=== PATIENT | female | born 1945 | race Caucasian/White ===

== ENCOUNTER → 2017-01-25 | Outpatient (CLI) | payer MEDICARE ==
--- NOTE | 2017-01-31 17:35 | MY ---
EXAMINATION: Bilateral digital mammography utilizing CAD. HISTORY: Screening exam. Comparison is made to previous studies dated 12/31/2015, 02/13/2013, 013 . FINDINGS: Bilateral scattered fibroglandular densities. Again noted are several groupings of calc ifications within the right breast with adjacent postsurgical clips. No suspicious calcifications, masses or architectural distortions. No pathologic appearing lymph nodes, no abnormal skin thicken ing or nipple inversion. CAD highlighted regions appear normal at this time. IMPRESSION: BI-RADS category II - Benign finding. Continued screening according to ACR-ACS guidelin es suggested. THE FALSE-NEGATIVE RATE OF MAMMOGRAM IS APPROXIMATELY 10%. MANAGEMENT OF A PALPABLE ABNORMALITY MUST BE BASED UPON CLINICAL GROUNDS. SENSITIVITY FOR DETECTION OF ABNORMALITIES IN DENSE BREASTS IS LOW. NOTE: A letter will be sent to the patient regarding findings. [facility] -- ORA Uribe [phone] - FAX [phone]
== END ==
LOC: MW.MAM 11:29
PROVIDERS: ATTEND Surgery
DX: Z12.31 Encounter for screening mammogram for malignant neoplasm of breast (principal)
CPT/HCPCS: G0202; G0202-26

== ENCOUNTER → 2017-02-01 | Outpatient (CLI) | payer MEDICARE | LOC: MW.CHGS 08:00 | PROVIDERS: ATTEND Surgery | DX: N60.92 Unspecified benign mammary dysplasia of left breast (principal); D24.2 Benign neoplasm of left breast; R10.9 Unspecified abdominal pain; E11.65 Type 2 diabetes mellitus with hyperglycemia | CPT/HCPCS: 99214 ==

== ENCOUNTER → 2017-02-20 | Outpatient (CLI) | payer MEDICARE ==
--- NOTE | 2017-02-20 15:40 | NM ---
EXAMINATION: NM gastric emptying study HISTORY: Epigastric pain COMPARISON: None TECHNIQUE: Anterior posterior imaging was obtained following the administration of 1 mCi of techneti um labeled sulfur colloid within a standard meal. The patient was unable to lay on the table longer than 45 minutes. FINDINGS: The T1 half was approximately 37 minutes. The patient demonstrated approximately 30% empty ing at 40 minutes. Which is within normal limits. IMPRESSION: No evidence of delayed gastric emptying, however the patient was only imaged for a short amount of time.
== END ==
LOC: MW.NM 09:48
PROVIDERS: ATTEND Nurse Practitioner Family
DX: R13.10 Dysphagia, unspecified (principal); R10.13 Epigastric pain
CPT/HCPCS: 78264; A9541

== ENCOUNTER → 2017-03-09 | Outpatient (CLI) | payer MEDICARE | LOC: MW.CHFP 08:00 | PROVIDERS: ATTEND Student in an Organized Health Care Education/Training Program | DX: NODX10 (principal) ==

== ENCOUNTER → 2017-03-24 | Outpatient (CLI) | payer MEDICARE | LOC: MW.CHFP 08:00 | PROVIDERS: ATTEND Student in an Organized Health Care Education/Training Program | DX: H10.10 Acute atopic conjunctivitis, unspecified eye (principal) | CPT/HCPCS: G0463 ==

== ENCOUNTER → 2017-04-05 | Outpatient (CLI) | payer MEDICARE | LOC: MW.CHFP 11:29 | PROVIDERS: ATTEND Student in an Organized Health Care Education/Training Program | DX: E87.6 Hypokalemia (principal); I10 Essential (primary) hypertension; E03.9 Hypothyroidism, unspecified; E11.69 Type 2 diabetes mellitus with other specified complication; E78.5 Hyperlipidemia, unspecified; E11.65 Type 2 diabetes mellitus with hyperglycemia | CPT/HCPCS: 36415; 80053; 80061; 82044; 83036; 84443; 99214 ==

== ENCOUNTER 2017-05-20 02:07 | Emergency (ER) | payer MEDICARE ==
--- NOTE | 2017-05-20 02:57 | EDM.PDOC ---
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 Past medical history: As per history of present illness and as reviewed below otherwise noncontributory. Surgical history: As per history of present illness and as reviewed below otherwise noncontributory. Social history: No reported history of drug or alcohol abuse. Family history: As per history of present illness and as reviewed below otherwise noncontributory. Physical exam: HEENT: Atraumatic, normocephalic, pupils reactive, negative for conjunctival pallor or scleral icterus, mucous membranes moist, throat clear, neck supple, nontender, trachea midline. Lungs: Clear to auscultation, breath sounds equal bilaterally, chest nontender. Heart: S1S2, regular, negative for clicks, rubs, or JVD. Abdomen: Soft, nondistended, nontender. Negative for masses or hepatosplenomegaly. Equivocal costovertebral tenderness. Pelvis: Stable nontender. Genitourinary: Deferred. Rectal: Deferred. Extremities: Atraumatic, negative for cords or calf pain. Neurovascular unremarkable. Neuro: Awake, alert, oriented. Cranial nerves II through XII unremarkable. Cerebellum unremarkable. Motor and sensory unremarkable throughout. Exam nonfocal. Diagnostics: CBC CMP UA urine culture CT abdomen and pelvis Therapeutics: To be determined Impression: #1 history of dysuria/hematuria #2 rule out UTI #3 history diabetes #4 history of diaphragmatic paralysis Definitive disposition and diagnosis as appropriate pending reevaluation and review of above. - Related Data Allergies Allergy/AdvReac Type Severity Reaction Status Date / Time hydrocodone Allergy Vomiting Verified 12/12/16 14:05 oxycodone [Oxycodone] Allergy Vomiting Verified 12/12/16 14:05 prochlorperazine Allergy Vomiting Verified 12/12/16 14:05 Tape Allergy Mild Itching Uncoded 01/07/15 02:39 Home Meds: Home Meds Dicyclomine [Bentyl] 10 mg PO TID 06/09/14 [History] Levothyroxine [Levothroid] 137 mcg PO DAILY 06/09/14 [History] Losartan [Cozaar] 50 mg PO DAILY 06/09/14 [History] Omeprazole 20 mg PO DAILY 06/09/14 [History] atorvaSTATin [Lipitor] 1 tab PO BEDTIME 06/09/14 [History] Acetaminophen [Tylenol Arthritis Pain] 650 mg PO Q6H PRN 01/04/15 [History] Docusate Sodium [Colace] 2 cap PO DAILY 03/09/16 [History] Ferrous Sulfate [Iron] 1 cap PO DAILY 03/09/16 [History] Insulin Aspart [NovoLOG] 10 - 20 units SUBCUT TIDMEALS 03/09/16 [History] Metoprolol Succinate [Toprol XL 100mg] 1 tab PO DAILY 03/09/16 [History] Nortriptyline HCl [Pamelor] 2 cap PO BEDTIME 03/09/16 [History] Azithromycin 500 mg PO DAILY #3 tablet 12/12/16 [Rx] Insulin Degludec/Liraglutide [Xultophy 100 Unit-3.6MG/ml Pen] 86 units SQ BEDTIME 12/12/16 [History] Tobramycin/Dexamethasone [Tobradex Eye Ointment] 3.5 gm OP 5XDAY #1 tub [Rx] Past Medical History HEENT History: Reports: Allergic Rhinitis, Impaired Vision, Other (See Below) Other HEENT History: wears glasses, has upper and lower dentures Cardiovascular History: Reports: High Cholesterol, Hypertension Respiratory History: Reports: Sleep Apnea, Other (See Below) Other Respiratory History: diaphram half paralized on home 02 and cpap Gastrointestinal History: Reports: GERD, Hiatal Hernia, Irritable Bowel Syndrome Genitourinary History: Reports: None 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 Musculoskeletal History: Reports: Arthritis, Fracture Other Musculoskeletal History: has arthritis in both knees, hx of fx both wrists Neurological History: Reports: Headaches, Chronic Other Neuro History: headaches from sinuses Psychiatric History: Reports: None Endocrine/Metabolic History: Reports: Diabetes, Type II, Hypothyroidism, Obesity /BMI 30+ Other Endocrine/Metabolic History: states 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 Hematologic History: Reports: Blood Transfusion(s) Immunologic History: Reports: None Oncologic (Cancer) History: Reports: None Dermatologic History: Reports: Other (See Below) Other Dermatologic History: has patches of dry skin - Infectious Disease History Infectious Disease History: Reports: None - Past Surgical History Head Surgeries/Procedures: Reports: None HEENT Surgical History: Reports: Naso-Sinus Surgery, Tonsillectomy Female Surgical History: Reports: Hysterectomy Musculoskeletal Surgical History: Reports: Arthroscopic Knee, Carpal Tunnel, Other (See Below) Social & Family History - Family History Family Medical History: Noncontributory - Tobacco Use Smoking Status *Q: Former Smoker Years of Tobacco use: 20 Used Tobacco, but Quit: Yes Month Tobacco Last Used: 20 yrs ago Second Hand Smoke Exposure: No - Caffeine Use Caffeine Use: Reports: None - Alcohol Use Days Per Week of Alcohol Use: 0 Number of Drinks Per Day: 0 Total Drinks Per Week: 0 - Recreational Drug Use Recreational Drug Use: No Drug Use in Last 12 Months: No ED ROS GENERAL - Review of Systems Review Of Systems: ROS reveals no pertinent complaints other than HPI. ED EXAM, GENERAL - Physical Exam Exam: See Below (See dictation) Course - Vital Signs Last Recorded V/S: Last Vital Signs Temp 36.6 C 05/20/17 02:12 Pulse 75 05/20/17 02:12 Resp 22 H 05/20/17 02:12 BP 142/86 H 05/20/17 02:12 Pulse Ox 93 L 05/20/17 02:12 - Orders/Labs/Meds Orders: Active Orders 24 hr Category Date Time Status Abdomen Pelvis wo Cont [CT] Stat Exams 05/20/17 02:24 Taken CULTURE URINE [RM] Stat Lab 05/20/17 02:20 Received Sodium Chloride 0.9% [Normal Saline] 500 ml Med 05/20/17 03:45 Active IV .BOLUS Medication Orders Sodium Chloride (Normal Saline) 500 mls @ 999 mls/hr IV .BOLUS VI Last Admin: 05/20/17 03:47 Dose: 999 mls/hr Labs: Laboratory Tests 05/20/17 05/20/17 05/20/17 Range/Units 02:20 02:37 02:37 WBC 10.73 (4.0-11.0) K/uL RBC 5.23 (4.30-5.90) M/uL Hgb 15.7 (12.0-16.0) g/dL Hct 46.5 H (36.0-46.0) % MCV 88.9 (80.0-98.0) fL MCH 30.0 (27.0-32.0) pg MCHC 33.8 (31.0-37.0) g/dL RDW Std Deviation 43.3 (28.0-62.0) fl RDW Coeff of Rajeev 14 (11.0-15.0) % Plt Count 211 (150-400) K/uL MPV 10.00 (7.40-12.00) fL Neut % (Auto) 73.5 (48.0-80.0) % Lymph % (Auto) 17.2 (16.0-40.0) % [place] % (Auto) 7.4 (0.0-15.0) % Eos % (Auto) 1.6 (0.0-7.0) % Baso % (Auto) 0.3 (0.0-1.5) % Neut # (Auto) 7.9 H (1.4-5.7) K/uL Lymph # (Auto) 1.9 (0.6-2.4) K/uL [place] # (Auto) 0.8 (0.0-0.8) K/uL Eos # (Auto) 0.2 (0.0-0.7) K/uL Baso # (Auto) 0.0 (0.0-0.1) K/uL Nucleated RBC % 0.0 /100WBC Nucleated RBCs # 0 K/uL Sodium 139 (136-146) mmol/L Potassium 3.8 (3.5-5.1) mmol/L Chloride 104 (98-110) mmol/L Carbon Dioxide 24 (21-31) mmol/L BUN 13 (6.0-23.0) mg/dL Creatinine 1.1 (0.6-1.5) mg/dL Est Cr Clr Drug Dosing 38.18 mL/min Estimated GFR (MDRD) 49.2 ml/min Glucose 267 H (60-110) mg/dL Calcium 9.6 (8.8-10.8) mg/dL Total Bilirubin 0.7 (0.1-1.5) mg/dL AST 19 (5-40) IU/L ALT 19 (8-54) IU/L Alkaline Phosphatase 127 (40-150) Total Protein 7.2 (6.0-8.0) g/dL Albumin 3.8 (3.4-4.8) g/dL Globulin 3.4 (2.0-3.5) g/dL Albumin/Globulin Ratio 1.1 L (1.3-2.8) Urine Color YELLOW Urine Appearance SLT CLOUDY Urine pH 5.5 (5.0-8.0) Ur Specific [place] 1.025 (1.001-1.035) Urine Protein TRACE (NEGATIVE) mg/dL Urine Glucose (UA) 100 H (NEGATIVE) mg/dL Urine Ketones NEGATIVE (NEGATIVE) mg/dL Urine Occult Blood LARGE H (NEGATIVE) Urine Nitrite NEGATIVE (NEGATIVE) Urine Bilirubin NEGATIVE (NEGATIVE) Urine Urobilinogen 1.0 (<2.0) EU/dL Ur Leukocyte Esterase TRACE (NEGATIVE) Urine RBC 40-50 (0-2/HPF) Urine WBC 1-5 (0-5/HPF) Ur Epithelial Cells FEW (NONE-FEW) Ur Renal Epithelial Cell OCCASIONAL Urine Bacteria FEW (NEGATIVE) Meds: Medications Generic Name Dose Route Start Last Admin Trade Name Freq PRN Reason Stop Dose Admin Sodium Chloride 500 mls @ 999 mls/hr 05/20/17 03:45 05/20/17 03:47 Normal Saline IV 999 mls/hr .BOLUS VI Administration Discontinued Medications Generic Name Dose Route Start Last Admin Trade Name Freq PRN Reason Stop Dose Admin Hydromorphone HCl 1 mg 05/20/17 03:40 05/20/17 03:53 Dilaudid IVPUSH 05/20/17 03:41 1 mg ONETIME ONE Administration Ketorolac Tromethamine 30 mg 05/20/17 03:40 05/20/17 03:52 Toradol IVPUSH 05/20/17 03:41 30 mg ONETIME ONE Administration Ondansetron HCl 4 mg 05/20/17 03:40 05/20/17 03:52 Zofran IVPUSH 05/20/17 03:41 4 mg ONETIME ONE Administration Tamsulosin HCl 0.4 mg 05/20/17 03:40 05/20/17 03:50 Flomax PO 05/20/17 03:41 0.4 mg ONETIME ONE Administration Departure - Departure Time of Disposition: 04:00 Disposition: Home, Self-Care 01 Condition: Good Clinical Impression: Kidney stone - Discharge Information Forms: ED Department Discharge Additional Instructions: The following information is given to patients seen in the emergency department who are being discharged to home. This information is to outline your options for follow-up care. We provide all patients seen in our emergency department with a follow-up referral. The need for follow-up, as well as the timing and circumstances, are variable depending upon the specifics of your emergency department visit. If you don't have a primary care physician on staff, we will provide you with a referral. We always advise you to contact your personal physician following an emergency department visit to inform them of the circumstance of the visit and for follow-up with them and/or the need for any referrals to a consulting specialist. The emergency department will also refer you to a specialist when appropriate. This referral assures that you have the opportunity for followup care with a specialist. All of these measure are taken in an effort to provide you with optimal care, which includes your followup. Under all circumstances we always encourage you to contact your private physician who remains a resource for coordinating your care. When calling for followup care, please make the office aware that this follow-up is from your recent emergency room visit. If for any reason you are refused follow-up, please contact the [facility] emergency department at and asked to speak to the emergency department charge nurse. [facility] - Urology [address] [place] [id number] Hydrocodone Flomax Zofran as prescribed push fluids follow-up private medical doctor/urology above return as needed as discussed - My Orders Last 24 Hours: My Active Orders 05/20/17 02:20 CULTURE URINE [RM] Stat 05/20/17 02:24 Abdomen Pelvis wo Cont [CT] Stat 05/20/17 03:45 Sodium Chloride 0.9% [Normal Saline] 500 ml IV .BOLUS - Assessment/Plan Last 24 Hours: My Active Orders 05/20/17 02:20 CULTURE URINE [RM] Stat 05/20/17 02:24 Abdomen Pelvis wo Cont [CT] Stat 05/20/17 03:45 Sodium Chloride 0.9% [Normal Saline] 500 ml IV .BOLUS
[2017-05-20] MEDS ORDERED: Tamsulosin 0.4 MG Cap.ER PO ONE (03:40)
[2017-05-20] MEDS ORDERED: Ondansetron 4 MG/2 ML SDV IVPUSH ONE (03:40)
[2017-05-20] MEDS ORDERED: HYDROmorphone 1 MG/ML Syringe IVPUSH ONE (03:40)
[2017-05-20] MEDS ORDERED: Ketorolac 30 MG/ML SDV IVPUSH ONE (03:40)
[2017-05-20] MEDS ORDERED: Sodium Chloride 0.9% 500 ML IV SCH (03:45)
[2017-05-20 05:16] VITALS: BP 131/83
--- NOTE | 2017-05-22 14:00 | CT ---
EXAM DATE: 05/20/17 PATIENT'S AGE: 71 Patient: KEVIN GARCIA Facility: [place], [place] Site . Site : 1945 Study: CT Abdomen/Pelvis [id number]/1/2017 3:08:30 AM Ordering Physician: Doctor Sanz Final Report: INDICATION: Hematuria, left flank pain TECHNIQUE: CT abdomen and pelvis without contrast. COMPARISON: None FINDINGS: Lower chest: Coronary artery calcifications. Small hiatal hernia. Liver: Nodular hepatic contour. Enlarged caudate lobe. No ascites. Spleen: Unremarkable. Pancreas: Unremarkable. Gallbladder and bile ducts: Status post cholecystectomy. Adrenal glands: Unremarkable. Kidneys: There is mild left renal edema and perinephric stranding with mild left hydronephrosis and proximal hydroureter. An obstructing 0.4 cm stone is seen within the left mid ureter. There are at least four stones within the left kidney, the largest measuring 3 mm in diameter. There are least three nonobstructive stones in the right kidney, the largest measuring 4 mm in diameter. GI tract: Colonic diverticulosis. Moderate to large amount of stool within the colon. Vascular structures: Atherosclerotic disease. Lymph nodes: 1.2 cm periportal lymph node 1.1 cm aortocaval lymph node. Miscellaneous: There is atrophy of the right rectus muscle. Pelvic Organs: Status post hysterectomy. Bones: Unremarkable for age. IMPRESSION: Obstructing 0.4 cm stone in the left mid ureter with mild left hydronephrosis. Bilateral nephrolithiasis. Hepatic cirrhosis. Periportal and aortocaval adenopathy is likely reactive. Small hiatal hernia. Colonic diverticulosis. Constipation. Coronary artery disease. Status post hysterectomy and cholecystectomy. Please note that all CT scans at this facility use dose modulation, iterative reconstruction, and/or weight-based dosing when appropriate to reduce radiation dose to as low as reasonably achievable. Dictated by Pricilla Meyers MD @ May 20 2017 3:11AM (Electronic Signature) Report Signed by Proxy. MTDD
== END 2017-05-20 05:24 | disposition home or self-care (01) ==
LOC: MW.ED 02:07
DX: N13.2 Hydronephrosis with renal and ureteral calculous obstruction (principal); E11.9 Type 2 diabetes mellitus without complications; E78.00 Pure hypercholesterolemia, unspecified; I10 Essential (primary) hypertension; K21.9 Gastro-esophageal reflux disease without esophagitis; E03.9 Hypothyroidism, unspecified; E66.9 Obesity, unspecified; Z90.710 Acquired absence of both cervix and uterus; Z88.5 Allergy status to narcotic agent; Z88.8 Allergy status to other drugs, medicaments and biological substances; Z79.899 Other long term (current) drug therapy; Z79.4 Long term (current) use of insulin; Z98.890 Other specified postprocedural states; Z87.891 Personal history of nicotine dependence; Z68.36 Body mass index [BMI] 36.0-36.9, adult
CPT/HCPCS: 36415; 74176; 80053; 81001; 85025; 87086; 96361; 96374; 96375; 99284; A9270; J1170; J1885; J2405; J7040; 99283

== ENCOUNTER 2018-05-24 07:24 | Emergency (ER) | payer MEDICARE ==
--- NOTE | 2018-05-24 07:27 | EDM.PDOC ---
ED HPI GENERAL MEDICAL PROBLEM - General Stated Complaint: FELL- HURT BACK AND BACKSIDE Time Seen by Provider: 05/24/18 07:27 Source of Information: Reports: Patient - History of Present Illness INITIAL COMMENTS - FREE TEXT/NARRATIVE: HISTORY AND PHYSICAL: History of present illness: [Patient presents post fall 24 hours Patient fell in her home she was ambulating with her walker fell straight onto her bottom she complains of low back pain this morning she rates 4 out of 10 worsened by movement better at rest and lying down no apparent distress easily examine no fever nausea vomiting chills sweats no chest pain shortness breath headache dizziness palpitation about a urine symptoms no head injury or loss of consciousness ] Review of systems: As per history of present illness and below otherwise all systems reviewed and negative. Past medical history: As per history of present illness and as reviewed below otherwise noncontributory. Surgical history: As per history of present illness and as reviewed below otherwise noncontributory. Social history: No reported history of drug or alcohol abuse. Family history: As per history of present illness and as reviewed below otherwise noncontributory. Physical exam: HEENT: Atraumatic, normocephalic, pupils reactive, negative for conjunctival pallor or scleral icterus, mucous membranes moist, throat clear, neck supple, nontender, trachea midline. Home oxygen nasal cannula noted Lungs: Clear to auscultation, breath sounds equal bilaterally, chest nontender. Heart: S1S2, regular, negative for clicks, rubs, or JVD. Abdomen: Soft, nondistended, nontender. Negative for masses or hepatosplenomegaly. Negative for costovertebral tenderness. Pelvis: Stable nontender. Genitourinary: Deferred. Rectal: Deferred. Extremities: Atraumatic, negative for cords or calf pain. Neurovascular unremarkable. Neuro: Awake, alert, oriented. Cranial nerves II through XII unremarkable. Cerebellum unremarkable. Motor and sensory unremarkable throughout. Exam nonfocal. Diagnostics: [Pelvis 1 view Lumbar spine 3 views Therapeutics: [Tramadol 50 mg by mouth 3 times a day when necessary #30 no refill ] Impression: [Low back pain ] T12 compression fracture indeterminate age Definitive disposition and diagnosis as appropriate pending reevaluation and review of above. Left Lower Back Pain Score (Numeric/FACES): 4 - Related Data Allergies Allergy/AdvReac Type Severity Reaction Status Date / Time hydrocodone AdvReac Vomiting Verified 05/24/18 08:16 oxycodone [Oxycodone] AdvReac Vomiting Verified 05/24/18 08:16 prochlorperazine AdvReac Vomiting Verified 05/24/18 08:16 Tape Allergy Mild Itching Uncoded 05/24/18 08:16 Home Meds: Home Meds Dicyclomine [Bentyl] 10 mg PO TID 06/09/14 [History] Levothyroxine [Levothroid] 137 mcg PO DAILY 06/09/14 [History] Losartan [Cozaar] 50 mg PO DAILY 06/09/14 [History] Omeprazole 20 mg PO DAILY 06/09/14 [History] atorvaSTATin [Lipitor] 1 tab PO BEDTIME 06/09/14 [History] Acetaminophen [Tylenol Arthritis Pain] 650 mg PO Q6H PRN 01/04/15 [History] Docusate Sodium [Colace] 2 cap PO DAILY 03/09/16 [History] Ferrous Sulfate [Iron] 1 cap PO DAILY 03/09/16 [History] Insulin Aspart [NovoLOG] 10 - 20 units SUBCUT TIDMEALS 03/09/16 [History] Metoprolol Succinate [Toprol XL 100mg] 1 tab PO DAILY 03/09/16 [History] Nortriptyline HCl [Pamelor] 2 cap PO BEDTIME 03/09/16 [History] Azithromycin 500 mg PO DAILY #3 tablet 12/12/16 [Rx] Insulin Degludec/Liraglutide [Xultophy 100 Unit-3.6MG/ml Pen] 86 units SQ BEDTIME 12/12/16 [History] Tobramycin/Dexamethasone [Tobradex Eye Ointment] 3.5 gm OP 5XDAY #1 tub [Rx] Past Medical History HEENT History: Reports: Allergic Rhinitis, Impaired Vision, Other (See Below) Other HEENT History: wears glasses, has upper and lower dentures Cardiovascular History: Reports: High Cholesterol, Hypertension Respiratory History: Reports: Sleep Apnea, Other (See Below) Other Respiratory History: diaphram half paralized on home 02 and cpap Gastrointestinal History: Reports: GERD, Hiatal Hernia, Irritable Bowel Syndrome Genitourinary History: Reports: None 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 Musculoskeletal History: Reports: Arthritis, Fracture Other Musculoskeletal History: has arthritis in both knees, hx of fx both wrists Neurological History: Reports: Headaches, Chronic Other Neuro History: headaches from sinuses Psychiatric History: Reports: None Endocrine/Metabolic History: Reports: Diabetes, Type II, Hypothyroidism, Obesity /BMI 30+ Other Endocrine/Metabolic History: states 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 Hematologic History: Reports: Blood Transfusion(s) Immunologic History: Reports: None Oncologic (Cancer) History: Reports: None Dermatologic History: Reports: Other (See Below) Other Dermatologic History: has patches of dry skin - Infectious Disease History Infectious Disease History: Reports: None - Past Surgical History Head Surgeries/Procedures: Reports: None HEENT Surgical History: Reports: Naso-Sinus Surgery, Tonsillectomy Female Surgical History: Reports: Hysterectomy Musculoskeletal Surgical History: Reports: Arthroscopic Knee, Carpal Tunnel, Other (See Below) Social & Family History - Family History Family Medical History: Noncontributory - Caffeine Use Caffeine Use: Reports: None ED ROS GENERAL - Review of Systems Review Of Systems: See Below ED EXAM, GENERAL - Physical Exam Exam: See Below Course - Vital Signs Last Recorded V/S: Last Vital Signs Temp 97.8 F 05/24/18 07:43 Pulse 95 05/24/18 07:43 Resp 20 05/24/18 07:43 BP 154/88 H 05/24/18 07:43 Pulse Ox 95 05/24/18 07:43 - Orders/Labs/Meds Orders: Active Orders 24 hr Category Date Time Status Lumbar Spine 2 or 3V [CR] Stat Exams 05/24/18 07:26 Taken Pelvis 1V or 2V [CR] Stat Exams 05/24/18 07:26 Taken Departure - Departure Time of Disposition: 08:50 Disposition: Home, Self-Care 01 Condition: Good Clinical Impression: Compression fracture of T12 vertebra - Discharge Information Referrals: Sheridan Jean-Baptiste MD [Primary Care Provider] - Additional Instructions: The following information is given to patients seen in the emergency department who are being discharged to home. This information is to outline your options for follow-up care. We provide all patients seen in our emergency department with a follow-up referral. The need for follow-up, as well as the timing and circumstances, are variable depending upon the specifics of your emergency department visit. If you don't have a primary care physician on staff, we will provide you with a referral. We always advise you to contact your personal physician following an emergency department visit to inform them of the circumstance of the visit and for follow-up with them and/or the need for any referrals to a consulting specialist. The emergency department will also refer you to a specialist when appropriate. This referral assures that you have the opportunity for follow-up care with a specialist. All of these measure are taken in an effort to provide you with optimal care, which includes your follow-up. Under all circumstances we always encourage you to contact your private physician who remains a resource for coordinating your care. When calling for follow-up care, please make the office aware that this follow-up is from your recent emergency room visit. If for any reason you are refused follow-up, please contact the [facility] emergency department at and asked to speak to the emergency department charge nurse. - My Orders Last 24 Hours: My Active Orders 05/24/18 07:26 Lumbar Spine 2 or 3V [CR] Stat Pelvis 1V or 2V [CR] Stat - Assessment/Plan Last 24 Hours: My Active Orders 05/24/18 07:26 Lumbar Spine 2 or 3V [CR] Stat Pelvis 1V or 2V [CR] Stat
[2018-05-24] MEDS ORDERED: Sodium Chloride 0.9% 500 ML IV SCH (09:30)
[2018-05-24] MEDS ORDERED: traMADol 50 MG Tab PO ONE (09:56)
[2018-05-24 11:50] VITALS: BP 106/78
--- NOTE | 2018-05-24 14:08 | CR ---
EXAM DATE: 05/24/18 PATIENT'S AGE: 72 Patient: KEVIN GARCIA Facility: [place], [place] Site . Site : 1945 Study: XRay Pelvis [id number]/5/2018 8:32:06 AM Ordering Physician: Doctor Sanz Final Report: Indication: Pain Technique: Pelvis 1 view Comparison: None Findings: Bones: Alignment is normal. No fractures or bone lesions. Joint spaces: Mild osteoarthritis is present in both hip joints. Soft tissues: Unremarkable. Impression: Mild bilateral hip joint osteoarthritis. No other finding to explain pain. Dictated by Abhinav Guerrero MD @ May 24 2018 8:34AM (Electronic Signature) Report Signed by Proxy. ARTURO
--- NOTE | 2018-05-24 14:09 | CR ---
EXAM DATE: 05/24/18 PATIENT'S AGE: 72 Patient: KEVIN GARCIA Facility: [place], [place] Site . Site : 1945 Study: XRay Spine Lumbar [id number]/5/[id number] 8:32:29 AM Ordering Physician: Doctor Sanz Final Report: INDICATION: Back pain TECHNIQUE: Lumbar spine 3 view COMPARISON: None FINDINGS: Bones: Alignment is normal. There is a moderate compression fracture of the T12 vertebral body. No other fractures or bone lesions. Joints: Moderate diffuse disc space narrowing. Moderate facet joint spondylosis is in the lower lumbar spine. Soft tissues: Unremarkable. IMPRESSION: 1. Moderate compression fracture of the T12 vertebral body is of indeterminate age. An acute fracture is possible. 2. Moderate multilevel degenerative disc and facet joint spondylosis. Dictated by Abhinav Guerrero MD @ May 24 2018 8:36AM (Electronic Signature) Report Signed by Proxy. ARTURO
== END 2018-05-24 11:40 | disposition home or self-care (01) ==
LOC: MW.ED 07:24
DX: S22.089A Unspecified fracture of T11-T12 vertebra, initial encounter for closed fracture (principal); E78.00 Pure hypercholesterolemia, unspecified; I10 Essential (primary) hypertension; K21.9 Gastro-esophageal reflux disease without esophagitis; E11.9 Type 2 diabetes mellitus without complications; E03.9 Hypothyroidism, unspecified; Z88.5 Allergy status to narcotic agent; Z88.8 Allergy status to other drugs, medicaments and biological substances; Z79.899 Other long term (current) drug therapy; Z79.4 Long term (current) use of insulin; W19.XXXA Unspecified fall, initial encounter
CPT/HCPCS: 36415; 72100; 72170; 80048; 81001; 85025; 87086; 96360; 99284; A9270; J7040; 87088; 87186

== ENCOUNTER 2019-05-29 00:31 | Emergency (ER) | payer MEDICARE ==
--- NOTE | 2019-05-29 00:59 | EDM.PDOC ---
<Tyrone Rodriguez - Last Filed: 05/29/19 02:00> ED HPI GENERAL MEDICAL PROBLEM - General Chief Complaint: General Stated Complaint: TOOK WRONG INSULIN Time Seen by Provider: 05/29/19 00:39 Source of Information: Reports: Patient History Limitations: Reports: No Limitations - History of Present Illness INITIAL COMMENTS - FREE TEXT/NARRATIVE: HISTORY AND PHYSICAL: History of present illness: 73-year-old female presents to the emergency department accompanied by her son and granddaughter for the evaluation of unintentional overdose of Novolog. At 2300, the patient inadvertently mistaken her Novolog pen for her Tresiba pen and injected her self with a total of 80 units of Novolog She immediately called her son. She did not drink any juice or make any attempts to raise her blood sugar. She denies any loss of consciousness, confusion feeling of lightheadedness, or diaphoresis. The patient is on chronic oxygen therapy at home and wears 2L NC. This is secondary to a past history of a partial diaphragmatic paralyzation. The patient self reports a increase work of breathing above her baseline however she is attributing the stressful event. Upon arrival to the emergency department it was found her blood glucose to be at 159. Review of systems: As per history of present illness and below otherwise all systems reviewed and negative. Past medical history: As per history of present illness and as reviewed below otherwise noncontributory. Surgical history: As per history of present illness and as reviewed below otherwise noncontributory. Social history: No reported history of drug or alcohol abuse. Family history: As per history of present illness and as reviewed below otherwise noncontributory. Physical exam: Constitutional: Well developed, well nourished, and toxic appearing HEENT: Atraumatic, normocephalic, pupils reactive, negative for conjunctival pallor or scleral icterus, mucous membranes moist, throat clear, neck supple, nontender, trachea midline. Lungs: Conversational dyspnea which is baseline according to the patient. Sounds are clear and equal bilaterally diminished to the bases to auscultation, Heart: S1S2, regular, negative for clicks, rubs, or JVD. Abdomen: Soft, nondistended, nontender. Bowel sounds active Genitourinary: Deferred. Rectal: Deferred. Extremities: Atraumatic, negative for cords or calf pain. Neurovascular unremarkable. Neuro: Awake, alert, oriented. Cranial nerves II through XII unremarkable. Cerebellum unremarkable. Motor and sensory unremarkable throughout. Exam nonfocal. Diagnostics: CBC, BMP, Blood glucose checks every thirty minutes or if the patient becomes symptomatic Therapeutics: Apple juice Impression: Unintentional overdose of NovoLog Plan: The patient will be closely monitored in the emergency department. We will be performing blood glucose testing on her every 30 minutes or if the patient becomes symptomatic. We will obtain a CBC as well as a basic metabolic panel. The patient was educated on marking her insulin pens with an easy to identify marker to prevent further recurrence. The patient's blood glucose was checked I half hour after arriving to the emergency department it was recorded to be at 154. The patient was given a cup of apple juice tolerating. The patient reports that her work breathing is returning back to her baseline. With the peak onset of NovoLog being 90 minutes, the patient can be safely discharged home as the incident occurred two and half hours ago. Additionally She will be instructed to check her blood glucose prior to going to bed and to follow-up with her diabetic care educator in the morning Definitive disposition and diagnosis as appropriate pending reevaluation and review of above. - Related Data Allergies Allergy/AdvReac Type Severity Reaction Status Date / Time hydrocodone AdvReac Vomiting Verified 05/29/19 00:44 oxycodone [Oxycodone] AdvReac Vomiting Verified 05/29/19 00:44 prochlorperazine AdvReac Vomiting Verified 05/29/19 00:44 Tape Allergy Mild Itching Uncoded 05/29/19 00:44 Home Meds: Home Meds Dicyclomine [Bentyl] 10 mg PO TID 06/09/14 [History] Levothyroxine [Levothroid] 175 mcg PO DAILY 06/09/14 [History] Losartan [Cozaar] 50 mg PO DAILY 06/09/14 [History] Omeprazole 40 mg PO BID 06/09/14 [History] atorvaSTATin [Lipitor] 1 tab PO BEDTIME 06/09/14 [History] Insulin Aspart [NovoLOG] 10 - 20 units SUBCUT TIDMEALS 03/09/16 [History] Metoprolol Succinate [Toprol XL 100mg] 2 tab PO DAILY 03/09/16 [History] Nortriptyline HCl [Pamelor] 2 cap PO BEDTIME 03/09/16 [History] Calcium Carb & Citrate/Vit D3 [Calcium + D3 ER Tablet] 2 tab PO DAILY 05/29/19 [ History] Celecoxib [CeleBREX] 200 mg PO DAILY 05/29/19 [History] Insulin Degludec [Tresiba] 80 units SQ ASDIRECTED 05/29/19 [History] Magnesium 500 mg PO DAILY 05/29/19 [History] amLODIPine Besylate [Amlodipine Besylate] 1 tab PO DAILY 05/29/19 [History] Past Medical History HEENT History: Reports: Allergic Rhinitis, Impaired Vision, Other (See Below) Other HEENT History: wears glasses, has upper and lower dentures Cardiovascular History: Reports: High Cholesterol, Hypertension Respiratory History: Reports: Sleep Apnea, Other (See Below) Other Respiratory History: diaphragm half paralized on home 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 Gastrointestinal History: Reports: GERD, Hiatal Hernia, Irritable Bowel Syndrome Genitourinary History: Reports: None [employer] History: Reports: None Musculoskeletal History: Reports: Arthritis, Fracture Other Musculoskeletal History: has arthritis in both knees, hx of fx both wrists Neurological History: Reports: Headaches, Chronic Other Neuro History: headaches from sinuses Psychiatric History: Reports: None Endocrine/Metabolic History: Reports: Diabetes, Type II, Hypothyroidism, Obesity /BMI 30+ Other Endocrine/Metabolic History: states 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 Hematologic History: Reports: Blood Transfusion(s) Immunologic History: Reports: None Oncologic (Cancer) History: Reports: None Dermatologic History: Reports: Other (See Below) Other Dermatologic History: has patches of dry skin - Infectious Disease History Infectious Disease History: Reports: None - Past Surgical History Head Surgeries/Procedures: Reports: None HEENT Surgical History: Reports: Naso-Sinus Surgery, Tonsillectomy Female Surgical History: Reports: Hysterectomy Musculoskeletal Surgical History: Reports: Arthroscopic Knee, Carpal Tunnel, Other (See Below) Social & Family History - Family History Family Medical History: Noncontributory - Tobacco Use Smoking Status *Q: Never Smoker - Caffeine Use Caffeine Use: Reports: Soda - Recreational Drug Use Recreational Drug Use: No ED ROS GENERAL - Review of Systems Review Of Systems: ROS reveals no pertinent complaints other than HPI. (See dictation) Course - Vital Signs Last Recorded V/S: Last Vital Signs Temp 36.6 C 05/29/19 00:31 Pulse 74 05/29/19 02:10 Resp 17 05/29/19 02:10 BP 126/63 05/29/19 02:10 Pulse Ox 93 L 05/29/19 02:10 - Orders/Labs/Meds Orders: Active Orders 24 hr Category Date Time Status Oxygen Therapy, ED [RC] ASDIRECTED Care 05/29/19 01:15 Active Pulse Oximetry [RC] ASDIRECTED Care 05/29/19 01:15 Active Sodium Chloride 0.9% [Saline Flush] Med 05/29/19 01:14 Active 10 ml FLUSH ASDIRECTED PRN Sodium Chloride 0.9% [Saline Flush] Med 05/29/19 01:14 Active 2.5 ml FLUSH ASDIRECTED PRN Saline Lock Insert [OM.PC] Stat Oth 05/29/19 01:14 Ordered Medication Orders Sodium Chloride (Saline Flush) 10 ml FLUSH ASDIRECTED PRN PRN Reason: Keep Vein Open Sodium Chloride (Saline Flush) 2.5 ml FLUSH ASDIRECTED PRN PRN Reason: Keep Vein Open Labs: Laboratory Tests 05/29/19 05/29/19 05/29/19 Range/Units 00:40 00:40 01:23 WBC 6.63 (4.0-11.0) K/uL RBC 4.95 (4.30-5.90) M/uL Hgb 12.9 (12.0-16.0) g/dL Hct 39.4 (36.0-46.0) % MCV 79.6 L (80.0-98.0) fL MCH 26.1 L (27.0-32.0) pg MCHC 32.7 (31.0-37.0) g/dL RDW Std Deviation 43.5 (28.0-62.0) fl RDW Coeff of Rajeev 15 (11.0-15.0) % Plt Count 260 (150-400) K/uL MPV 10.50 (7.40-12.00) fL Neut % (Auto) 53.8 (48.0-80.0) % Lymph % (Auto) 33.5 (16.0-40.0) % Rowan % (Auto) 9.8 (0.0-15.0) % Eos % (Auto) 2.6 (0.0-7.0) % Baso % (Auto) 0.3 (0.0-1.5) % Neut # (Auto) 3.6 (1.4-5.7) K/uL Lymph # (Auto) 2.2 (0.6-2.4) K/uL Rowan # (Auto) 0.7 (0.0-0.8) K/uL Eos # (Auto) 0.2 (0.0-0.7) K/uL Baso # (Auto) 0.0 (0.0-0.1) K/uL Sodium 141 (136-145) mmol/L Potassium 4.0 (3.5-5.1) mmol/L Chloride 107 (98-107) mmol/L Carbon Dioxide 22.6 (21.0-32.0) mmol/L BUN 19 H (7.0-18.0) mg/dL Creatinine 1.2 H (0.6-1.0) mg/dL Est Cr Clr Drug Dosing TNP Estimated GFR (MDRD) 44.3 ml/min Glucose 173 H (74-106) mg/dL POC Glucose 154 H (60-110) mg/dL Calcium 8.7 (8.5-10.1) mg/dL Total Bilirubin 0.9 (0.2-1.0) mg/dL AST 27 (15-37) IU/L ALT 22 (14-63) IU/L Alkaline Phosphatase 116 (46-116) U/L Total Protein 7.3 (6.4-8.2) g/dL Albumin 3.5 (3.4-5.0) g/dL Globulin 3.8 (2.6-4.0) g/dL Albumin/Globulin Ratio 0.9 (0.9-1.6) Meds: Medications Generic Name Dose Route Start Last Admin Trade Name Freq PRN Reason Stop Dose Admin Sodium Chloride 10 ml 05/29/19 01:14 Saline Flush FLUSH ASDIRECTED PRN Keep Vein Open Sodium Chloride 2.5 ml 05/29/19 01:14 Saline Flush FLUSH ASDIRECTED PRN Keep Vein Open Departure - Departure Disposition: Home, Self-Care 01 Clinical Impression: Insulin overdose Qualifiers: Encounter type: initial encounter Injury intent: accidental or unintentional Qualified Code(s): T38.3X1A - Poisoning by insulin and oral hypoglycemic [ antidiabetic] drugs, accidental (unintentional), initial encounter - Discharge Information Instructions: Regular Insulin injection Referrals: PCP,None [Primary Care Provider] - Forms: ED Department Discharge Additional Instructions: The following information is given to patients seen in the emergency department who are being discharged to home. This information is to outline your options for follow-up care. We provide all patients seen in our emergency department with a follow-up referral. The need for follow-up, as well as the timing and circumstances, are variable depending upon the specifics of your emergency department visit. If you don't have a primary care physician on staff, we will provide you with a referral. We always advise you to contact your personal physician following an emergency department visit to inform them of the circumstance of the visit and for follow-up with them and/or the need for any referrals to a consulting specialist. The emergency department will also refer you to a specialist when appropriate. This referral assures that you have the opportunity for followup care with a specialist. All of these measure are taken in an effort to provide you with optimal care, which includes your followup. Under all circumstances we always encourage you to contact your private physician who remains a resource for coordinating your care. When calling for followup care, please make the office aware that this follow-up is from your recent emergency room visit. If for any reason you are refused follow-up, please contact the [facility] emergency department at and ask to speak to the emergency department charge nurse. [facility] Primary care- [place] [address] Continue to monitor your blood sugar very closely checking it every 1-2 hours for the next 8 hours. Please connect with your diabetic teaching people as well as your primary care physician to discuss this morning's events and return to ER as needed and as discussed - My Orders Last 24 Hours: My Active Orders 05/29/19 01:14 Sodium Chloride 0.9% [Saline Flush] 10 ml FLUSH ASDIRECTED PRN Sodium Chloride 0.9% [Saline Flush] 2.5 ml FLUSH ASDIRECTED PRN Saline Lock Insert [OM.PC] Stat 05/29/19 01:15 Oxygen Therapy, ED [RC] ASDIRECTED Pulse Oximetry [RC] ASDIRECTED - Assessment/Plan Last 24 Hours: My Active Orders 05/29/19 01:14 Sodium Chloride 0.9% [Saline Flush] 10 ml FLUSH ASDIRECTED PRN Sodium Chloride 0.9% [Saline Flush] 2.5 ml FLUSH ASDIRECTED PRN Saline Lock Insert [OM.PC] Stat 05/29/19 01:15 Oxygen Therapy, ED [RC] ASDIRECTED Pulse Oximetry [RC] ASDIRECTED <Emili Caceres - Last Filed: 05/29/19 02:14> ED HPI GENERAL MEDICAL PROBLEM - History of Present Illness INITIAL COMMENTS - FREE TEXT/NARRATIVE: Dr. Caceres dictating addendum note as I am the supervising physician on this case. Agree with history and physical as above and as we have long past the peak of the NovoLog I feel the patient states to go home and we will advise her to check her blood sugars throughout the rest of the morning. ED ROS GENERAL - Review of Systems Review Of Systems: ROS reveals no pertinent complaints other than HPI. ED EXAM, GENERAL - Physical Exam Exam: See Below (See dictation) Departure - Departure Time of Disposition: 01:58 Condition: Good
[2019-05-29] MEDS ORDERED: Sodium Chloride 0.9% 10 ML Syringe FLUSH PRN (01:14)
[2019-05-29] MEDS ORDERED: Sodium Chloride 0.9% 2.5 ML Syringe FLUSH PRN (01:14)
[2019-05-29 01:32] LABS: CHLORIDE,CL 107 mmol/L (98-107); SODIUM,NA 141 mmol/L (136-145)
[2019-05-29 02:14] VITALS: BP 126/63
== END 2019-05-29 02:10 | disposition home or self-care (01) ==
LOC: MW.ED 00:31
DX: T38.3X1A Poisoning by insulin and oral hypoglycemic [antidiabetic] drugs, accidental (unintentional), initial encounter (principal); E78.00 Pure hypercholesterolemia, unspecified; I10 Essential (primary) hypertension; K21.9 Gastro-esophageal reflux disease without esophagitis; E11.9 Type 2 diabetes mellitus without complications; E03.9 Hypothyroidism, unspecified; Z99.81 Dependence on supplemental oxygen; Z79.4 Long term (current) use of insulin; Z88.5 Allergy status to narcotic agent; Z88.8 Allergy status to other drugs, medicaments and biological substances; Z91.048 Other nonmedicinal substance allergy status; Z79.899 Other long term (current) drug therapy
CPT/HCPCS: 36415; 80053; 82962; 85025; 99284

== ENCOUNTER 2020-02-04 08:06 | Inpatient (IN) | payer MEDICARE ==
[2020-02-04] MEDS ORDERED: Albuterol/Ipratropium 3.0-0.5 MG/3 ML Neb Soln ONE (08:11)
[2020-02-04] MEDS ORDERED: Magnesium Sulfate/Water 2 GM in Premix Bag 1 BAG IV ONE (08:12)
[2020-02-04] MEDS ORDERED: Albuterol/Ipratropium 3.0-0.5 MG/3 ML Neb Soln NEB ONE (08:12)
[2020-02-04] MEDS ORDERED: methylPREDNISolone Sodium Succinate 125 MG/2 ML SDV IVPUSH ONE (08:13)
--- NOTE | 2020-02-04 08:28 | EDM.PDOC ---
ED HPI GENERAL MEDICAL PROBLEM - General Chief Complaint: Respiratory Problem Stated Complaint: BREATHING PROBLEMS Time Seen by Provider: 02/04/20 08:13 Source of Information: Reports: Patient, EMS History Limitations: Reports: No Limitations - History of Present Illness INITIAL COMMENTS - FREE TEXT/NARRATIVE: This 74 year old female is admitted to the ED via EMS with a chief complaint of increasing SOB for the past two weeks. 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 She denies chest pain but does have mild nausea. She is on home oxygen 3 liters /minute. The EMS states that her oxygen sat on 3 liters of oxygen was 79-80. She was placed on 10 liters and her oxygen sat came up to 96%. The patient states that the last time she had these symptoms was when she had pneumonia. She denies any fever or chills. No vomiting. No urinary symptoms. She denies any other symptoms. Onset: Gradual (last two weeks but has gotten worse) Duration: Getting Worse Location: Reports: Chest Severity: Moderate (SOB) Improves with: Reports: Other (oxygen) Worsens with: Reports: Other (exercise) Context: Reports: Other (her SOB is increased with walking) - Related Data Allergies Allergy/AdvReac Type Severity Reaction Status Date / Time adhesive tape Allergy Rash Verified 02/04/20 08:15 hydrocodone AdvReac Vomiting Verified 02/04/20 08:15 oxycodone [Oxycodone] AdvReac Vomiting Verified 02/04/20 08:15 prochlorperazine AdvReac Vomiting Verified 02/04/20 08:15 Tape Allergy Mild Itching Uncoded 05/29/19 00:44 Home Meds: Home Meds Dicyclomine [Bentyl] 10 mg PO TID 06/09/14 [History] Levothyroxine [Levothroid] 175 mcg PO DAILY 06/09/14 [History] Losartan [Cozaar] 50 mg PO DAILY 06/09/14 [History] Omeprazole 40 mg PO BID 06/09/14 [History] atorvaSTATin [Lipitor] 1 tab PO BEDTIME 06/09/14 [History] Insulin Aspart [NovoLOG] 10 - 20 units SUBCUT TIDMEALS 03/09/16 [History] Metoprolol Succinate [Toprol XL 100mg] 2 tab PO DAILY 03/09/16 [History] Nortriptyline HCl [Pamelor] 2 cap PO BEDTIME 03/09/16 [History] Calcium Carb, Citrate/Vit D3 [Calcium + D3 ER Tablet] 2 tab PO DAILY 05/29/19 [ History] Celecoxib [CeleBREX] 200 mg PO DAILY 05/29/19 [History] Insulin Degludec [Tresiba] 80 units SQ ASDIRECTED 05/29/19 [History] Magnesium 500 mg PO DAILY 05/29/19 [History] amLODIPine Besylate [Amlodipine Besylate] 1 tab PO DAILY 05/29/19 [History] Celecoxib 200 mg PO 09/03/19 [History] Dicyclomine [Bentyl] 10 mg PO 09/03/19 [History] Fluticasone Furoate [Arnuity Ellipta] 2 inh NASBOTH 09/03/19 [History] Insulin Degludec [Tresiba] 200 unit SQ 09/03/19 [History] Insuln Asp Prot/Insulin Aspart [NovoLOG Mix 70-30] 22 units SUBCUT 09/03/19 [ History] Latanoprost/Pf [Latanoprost 0.005% Eye Drop] 1 drop EYEBOTH 09/03/19 [History] Levothyroxine 175 mcg PO 09/03/19 [History] Losartan [Cozaar] 50 mg PO 09/03/19 [History] Meloxicam 15 mg PO 09/03/19 [History] Metoprolol Succinate 100 mg PO 09/03/19 [History] Nortriptyline 10 mg PO 09/03/19 [History] Omeprazole 40 mg PO 09/03/19 [History] amLODIPine [Norvasc] 10 mg PO 09/03/19 [History] atorvaSTATin [Lipitor] 20 mg PO 09/03/19 [History] Past Medical History HEENT History: Reports: Allergic Rhinitis, Impaired Vision, Other (See Below) Other HEENT History: wears glasses, has upper and lower dentures Cardiovascular History: Reports: High Cholesterol, Hypertension Respiratory History: Reports: Other (See Below), Sleep Apnea Other Respiratory History: PT reports only having use of half of her diaphragm due to a viral infection Gastrointestinal History: Reports: GERD, Hiatal Hernia, Irritable Bowel Syndrome Genitourinary History: Reports: None [employer] History: Reports: None Musculoskeletal History: Reports: Arthritis, Fracture Other Musculoskeletal History: has arthritis in both knees, hx of fx both wrists Neurological History: Reports: Headaches, Chronic Other Neuro History: headaches from sinuses Psychiatric History: Reports: None Endocrine/Metabolic History: Reports: Diabetes, Type II, Hypothyroidism, Obesity /BMI 30+ Other Endocrine/Metabolic History: states 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 Hematologic History: Reports: Blood Transfusion(s) Immunologic History: Reports: None Oncologic (Cancer) History: Reports: None Dermatologic History: Reports: Other (See Below) Other Dermatologic History: has patches of dry skin - Infectious Disease History Infectious Disease History: Reports: None - Past Surgical History Head Surgeries/Procedures: Reports: None HEENT Surgical History: Reports: Naso-Sinus Surgery, Tonsillectomy Female Surgical History: Reports: Hysterectomy Musculoskeletal Surgical History: Reports: Arthroscopic Knee, Carpal Tunnel, Other (See Below) Social & Family History - Family History Family Medical History: Noncontributory - Caffeine Use Caffeine Use: Reports: Coffee, Soda ED ROS GENERAL - Review of Systems Review Of Systems: See Below Constitutional: Reports: Fatigue HEENT: Reports: No Symptoms Respiratory: Reports: Shortness of Breath, Cough (mild cough) Cardiovascular: Reports: No Symptoms Endocrine: Reports: No Symptoms GI/Abdominal: Reports: No Symptoms : Reports: No Symptoms Musculoskeletal: Reports: No Symptoms Skin: Reports: No Symptoms Neurological: Reports: No Symptoms ED EXAM, GENERAL - Physical Exam Exam: See Below Exam Limited By: No Limitations General Appearance: Alert, WD/WN, Moderate Distress (respiratory distress) Ears: Normal External Exam, Normal Canal, Hearing Grossly Normal, Normal TMs Ear Exam: Bilateral Ear: Auricle Normal, Canal Normal, TM normal Nose: Normal Inspection, Normal Mucosa, No Blood Throat/Mouth: Normal Inspection, Normal Lips, Normal Teeth, Normal Gums, Normal Oropharynx, Normal Voice, No Airway Compromise Head: Atraumatic, Normocephalic Neck: Normal Inspection, Supple, Non-Tender, Full Range of Motion Respiratory/Chest: Respiratory Distress (moderate), Decreased Breath Sounds ( lower bases bilateral), Rales (in both bases), Rhonchi (both bases), Wheezing ( slight wheezing in the left upper lung field), Prolonged Expiration. No: Stridor, Accessory Muscle Use Cardiovascular: Normal Peripheral Pulses, Regular Rate, Rhythm, No Edema, No JVD , Systolic Murmur (systolic ejection murmur grade 2/6 at the apex) Peripheral Pulses: 2+: Radial (R), 3+: Radial (L), Dorsalis Pedis (L), Dorsalis Pedis (R) GI/Abdominal: Normal Bowel Sounds, Soft, Non-Tender, No Organomegaly, No Distention, No Abnormal Bruit, No Mass (Female) Exam: Deferred Rectal (Female) Exam: Deferred Back Exam: Normal Inspection Extremities: Normal Inspection, Non-Tender, No Pedal Edema. No: Jaime's Sign Neurological: Alert, Oriented, CN II-XII Intact, Normal Reflexes, No Motor/ Sensory Deficits Skin Exam: Warm, Dry, Intact, Normal Color, No Rash Lymphatic: No Adenopathy Course - Vital Signs Text/Narrative:: I reviewed all of the patients labs and chest x-ray. I discussed them with Dr. Cornell at 9:38AM. She will be admitted to OBS/TELE. The patient agrees with the admission plan. Dr. Cornell advised of putting the patient on BiPap at 9:47AM. Last Recorded V/S: Last Vital Signs Temp 98.2 F 02/04/20 08:07 Pulse 74 02/04/20 08:07 Resp 28 H 02/04/20 08:07 BP 127/55 L 02/04/20 08:07 Pulse Ox 99 02/04/20 08:07 - Orders/Labs/Meds Orders: Active Orders 24 hr Category Date Time Status EKG Documentation Completion [RC] STAT Care 02/04/20 08:11 Active RT Aerosol Therapy [RC] ASDIRECTED Care 02/04/20 08:13 Active B-TYPE NATRIURETIC PEPTIDE,BNP [CHEM] Stat Lab 02/04/20 08:10 Received UA RFX ANGELES AND CULT IF INDIC [URIN] Stat Lab 02/04/20 08:11 Ordered Labs: Laboratory Tests 02/04/20 02/04/20 02/04/20 Range/Units 08:10 08:10 08:11 WBC 10.81 (4.0-11.0) K/uL RBC 4.65 (4.30-5.90) M/uL Hgb 8.3 L (12.0-16.0) g/dL Hct 30.3 L (36.0-46.0) % MCV 65.2 L (80.0-98.0) fL MCH 17.8 L (27.0-32.0) pg MCHC 27.4 L (31.0-37.0) g/dL RDW Std Deviation 49.9 (28.0-62.0) fl RDW Coeff of Rajeev 21 H (11.0-15.0) % Plt Count 292 (150-400) K/uL MPV 9.60 (7.40-12.00) fL Neut % (Auto) 69.6 (48.0-80.0) % Lymph % (Auto) 18.0 (16.0-40.0) % [place] % (Auto) 10.2 (0.0-15.0) % Eos % (Auto) 1.9 (0.0-7.0) % Baso % (Auto) 0.3 (0.0-1.5) % Neut # (Auto) 7.5 H (1.4-5.7) K/uL Lymph # (Auto) 2.0 (0.6-2.4) K/uL [place] # (Auto) 1.1 H (0.0-0.8) K/uL Eos # (Auto) 0.2 (0.0-0.7) K/uL Baso # (Auto) 0.0 (0.0-0.1) K/uL Nucleated RBC % 0.0 /100WBC Nucleated RBCs # 0 K/uL ABG pH 7.347 L (7.35-7.45) ABG pCO2 48 H (35-45) mmHG ABG pO2 63 L (75-100) mmHG ABG HCO3 26 (22-26) mEq/L ABG Total CO2 25.4 ABG Base Excess 0.4 (-2.0-2.0) Sodium 142 (136-145) mmol/L Potassium 4.4 (3.5-5.1) mmol/L Chloride 107 (98-107) mmol/L Carbon Dioxide 28.9 (21.0-32.0) mmol/L BUN 16 (7.0-18.0) mg/dL Creatinine 1.4 H (0.6-1.0) mg/dL Est Cr Clr Drug Dosing 27.41 mL/min Estimated GFR (MDRD) 37.0 ml/min Glucose 63 L (74-106) mg/dL Calcium 8.8 (8.5-10.1) mg/dL Magnesium 2.3 (1.8-2.4) mg/dL Total Bilirubin 1.2 H (0.2-1.0) mg/dL AST 23 (15-37) IU/L ALT 20 (14-63) IU/L Alkaline Phosphatase 122 H (46-116) U/L Troponin I < 0.050 (0.000-0.056) ng/mL Total Protein 7.0 (6.4-8.2) g/dL Albumin 3.6 (3.4-5.0) g/dL Globulin 3.4 (2.6-4.0) g/dL Albumin/Globulin Ratio 1.1 (0.9-1.6) Meds: Medications Discontinued Medications Generic Name Dose Route Start Last Admin Trade Name Freq PRN Reason Stop Dose Admin Albuterol/Ipratropium 3 ml 02/04/20 08:12 02/04/20 08:23 Duoneb 3.0-0.5 Mg/3 Ml NEB 02/04/20 08:13 3 ml ONETIME ONE Administration Albuterol/Ipratropium Confirm 02/04/20 08:11 02/04/20 08:35 Duoneb 3.0-0.5 Mg/3 Ml Administered 02/04/20 08:12 Not Given Dose 6 ml .ROUTE .STK-MED ONE Furosemide 40 mg 02/04/20 09:36 Lasix IVPUSH 02/04/20 09:37 NOW ONE Magnesium Sulfate 2 gm/ Premix 50 mls @ 50 mls/hr 02/04/20 08:12 02/04/20 08: 35 IV 02/04/20 09:11 Not Given ONETIME ONE Magnesium Sulfate 1 gm/ Sodium 52 mls @ 104 mls/hr 02/04/20 08:30 02/04/20 08 :40 Chloride IV 02/04/20 08:59 104 mls/hr ONETIME ONE Administration Methylprednisolone Sodium Succinate 125 mg 02/04/20 08:13 02/04/20 08:40 Solu-Medrol IVPUSH 02/04/20 08:14 125 mg ONETIME ONE Administration Departure - Departure Time of Disposition: 09:43 Disposition: Refer to Observation Condition: Fair Clinical Impression: Hypoxemia, COPD exacerbation CHF (congestive heart failure) Qualifiers: Heart failure type: unspecified Heart failure chronicity: acute on chronic Qualified Code(s): I50.9 - Heart failure, unspecified - Discharge Information *PRESCRIPTION DRUG MONITORING PROGRAM REVIEWED*: Yes *COPY OF PRESCRIPTION DRUG MONITORING REPORT IN PATIENT DANIEL: Yes Forms: ED Department Discharge Sepsis Event Note - Evaluation Sepsis Screening Result: No Definite Risk - Focused Exam Vital Signs: Vital Signs Temp Pulse Resp BP Pulse Ox 02/04/20 08:07 98.2 F 74 28 H 127/55 L 99 Date Exam was Performed: 02/04/20 Time Exam was Performed: 09:41 - My Orders Last 24 Hours: My Active Orders 02/04/20 08:10 B-TYPE NATRIURETIC PEPTIDE,BNP [CHEM] Stat 02/04/20 08:11 EKG Documentation Completion [RC] STAT UA RFX ANGELES AND CULT IF INDIC [URIN] Stat 02/04/20 08:13 RT Aerosol Therapy [RC] ASDIRECTED - Assessment/Plan Last 24 Hours: My Active Orders 02/04/20 08:10 B-TYPE NATRIURETIC PEPTIDE,BNP [CHEM] Stat 02/04/20 08:11 EKG Documentation Completion [RC] STAT UA RFX ANGELES AND CULT IF INDIC [URIN] Stat 02/04/20 08:13 RT Aerosol Therapy [RC] ASDIRECTED
[2020-02-04 08:51] LABS: BLOOD UREA NITROGEN,BUN 16 mg/dL (7.0-18.0); CARBON DIOXIDE,CO2 28.9 mmol/L (21.0-32.0); CHLORIDE,CL 107 mmol/L (98-107); GLUCOSE RANDOM 63 mg/dL (74-106); POTASSIUM,K 4.4 mmol/L (3.5-5.1); SODIUM,NA 142 mmol/L (136-145)
--- NOTE | 2020-02-04 09:01 | CR ---
Chest: Frontal view of the chest was obtained. Comparison: No prior chest x-ray is available. Increased central lung markings are noted. Without old study, uncertain if this is acute or old. Difficult to exclude pulmonary vascular congestion. Heart size is slightly generous. Bony structures are grossly intact. Impression: 1. Findings on current chest x-ray suggest mild CHF as noted above. Diagnostic code #3 This report was dictated in MDT
[2020-02-04] MEDS ORDERED: Furosemide 40 MG/4 ML VIAL IVPUSH ONE (09:36)
[2020-02-04] MEDS ORDERED: Levofloxacin/Dextrose 5%-Water 750 MG in Premix Bag 1 BAG IV SCH (10:45)
--- NOTE | 2020-02-04 10:51 | PCM.HP.2 ---
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 Per EMS on her 3 L NC at home, she was sating 79% on their arrival. She reports last night she felt tired and off, and felt like she had fever, but couldn't check due to not being able to find her thermometer. She reports dry cough, scratchy throat. No sputum production or hemoptysis. reports dyspnea even at rest. Denies overt positional dyspnea. No peripheral edema noted. No chest pain or palpitations. She denies urinary concerns and no diarrhea. reports mild nausea with poor appetite. She denies recent travel or contact with sick individuals. Has left her house to go to the grocery store and other errands. In the ED no leukocytosis 10,810, hgb 8.3 platelets 292, BUN 16, Cr 1.4 glucose 63, troponin negative. CXR shows increased central lung markings, difficult to exclude pulmonary vascular congestion. Influenza negative. She was placed on simple mask 10 L by EMS, and then 15 L NRB in ED, ABG obtained PO2 noted to be 58, RR 30s. She was place don bipap in ED. Coronavirus test pending. Will place in airborne precautions and admit to ICU. - Related Data Allergies/Adverse Reactions: Allergies Allergy/AdvReac Type Severity Reaction Status Date / Time adhesive tape Allergy Rash Verified 02/04/20 08:15 hydrocodone AdvReac Vomiting Verified 02/04/20 08:15 oxycodone [Oxycodone] AdvReac Vomiting Verified 02/04/20 08:15 prochlorperazine AdvReac Vomiting Verified 02/04/20 08:15 Tape Allergy Mild Itching Uncoded 05/29/19 00:44 Home Medications: Home Meds Dicyclomine [Bentyl] 10 mg PO DAILY 06/09/14 [History] Levothyroxine [Levothroid] 175 mcg PO DAILY 06/09/14 [History] Losartan [Cozaar] 50 mg PO DAILY 06/09/14 [History] Omeprazole 40 mg PO BID 06/09/14 [History] Insulin Aspart [NovoLOG] 10 - 20 units SUBCUT TIDMEALS 03/09/16 [History] Nortriptyline HCl [Pamelor] 2 cap PO BEDTIME 03/09/16 [History] Calcium Carb, Citrate/Vit D3 [Calcium + D3 ER Tablet] 2 tab PO DAILY 05/29/19 [ History] Celecoxib [CeleBREX] 200 mg PO DAILY 05/29/19 [History] amLODIPine Besylate [Amlodipine Besylate] 10 tab PO DAILY 05/29/19 [History] Insulin Degludec [Tresiba] 200 unit SQ BEDTIME 09/03/19 [History] Insuln Asp Prot/Insulin Aspart [NovoLOG Mix 70-30] 1 dose SUBCUT TID 09/03/19 [ History] Meloxicam 15 mg PO DAILY 09/03/19 [History] Metoprolol Succinate 25 mg PO DAILY 09/03/19 [History] atorvaSTATin [Lipitor] 20 mg PO DAILY 09/03/19 [History] Furosemide [Lasix] 20 mg PO DAILY 02/04/20 [History] Past Medical History HEENT History: Reports: Allergic Rhinitis, Impaired Vision, Other (See Below) Other HEENT History: wears glasses, has upper and lower dentures Cardiovascular History: Reports: High Cholesterol, Hypertension Respiratory History: Reports: Other (See Below), Sleep Apnea Other Respiratory History: PT reports only having use of half of her diaphragm due to a viral infection Gastrointestinal History: Reports: GERD, Hiatal Hernia, Irritable Bowel Syndrome Genitourinary History: Reports: None [employer] History: Reports: None Musculoskeletal History: Reports: Arthritis, Fracture Other Musculoskeletal History: has arthritis in both knees, hx of fx both wrists Neurological History: Reports: Headaches, Chronic Other Neuro History: headaches from sinuses Psychiatric History: Reports: None Endocrine/Metabolic History: Reports: Diabetes, Type II, Hypothyroidism, Obesity /BMI 30+ Other Endocrine/Metabolic History: states 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 Hematologic History: Reports: Blood Transfusion(s) Immunologic History: Reports: None Oncologic (Cancer) History: Reports: None Dermatologic History: Reports: Other (See Below) Other Dermatologic History: has patches of dry skin - Infectious Disease History Infectious Disease History: Reports: None - Past Surgical History Head Surgeries/Procedures: Reports: None HEENT Surgical History: Reports: Naso-Sinus Surgery, Tonsillectomy Female Surgical History: Reports: Hysterectomy Musculoskeletal Surgical History: Reports: Arthroscopic Knee, Carpal Tunnel, Other (See Below) Social & Family History - Family History Family Medical History: Noncontributory - Tobacco Use Smoking Status *Q: Former Smoker Used Tobacco, but Quit: Yes Month/Year Tobacco Last Used: 20 years - Caffeine Use Caffeine Use: Reports: Coffee, Soda - Recreational Drug Use Recreational Drug Use: No H&P Review of Systems - Review of Systems: Review Of Systems: See Below General: Reports: Fever, Chills, Malaise, Decreased Appetite HEENT: Reports: Sore Throat (scratchy throat). Denies: Headaches, Sinus Congestion Pulmonary: Reports: Shortness of Breath, Cough. Denies: Sputum, Hemoptysis Cardiovascular: Reports: Dyspnea on Exertion. Denies: Chest Pain, Palpitations , Edema Gastrointestinal: Reports: No Symptoms. Denies: Abdominal Pain, Black Stool, Bloody Stool, Nausea, Vomiting Genitourinary: Reports: No Symptoms. Denies: Dysuria, Frequency, Burning Musculoskeletal: Reports: No Symptoms Skin: Reports: No Symptoms Psychiatric: Reports: No Symptoms Neurological: Reports: No Symptoms Hematologic/Lymphatic: Reports: No Symptoms Immunologic: Reports: No Symptoms Exam - Exam Exam: See Below - Vital Signs Vital Signs: Last Vital Signs Temp 98.2 F 02/04/20 08:07 Pulse 74 02/04/20 08:07 Resp 28 H 02/04/20 08:07 BP 127/55 L 02/04/20 08:07 Pulse Ox 99 02/04/20 08:07 Weight: 81.647 kg - Exam General: Alert, Oriented, Cooperative HEENT: Conjunctiva Clear, Mucosa Moist & [place], Posterior Pharynx Clear Lungs: Decreased Breath Sounds. No: Normal Respiratory Effort (dyspnea and cry cough noted) Cardiovascular: Regular Rate, Regular Rhythm, Normal S1, Normal S2 GI/Abdominal Exam: Normal Bowel Sounds, Soft, Non-Tender, Other (obese abdomen) Back Exam: Normal Inspection, Full Range of Motion Extremities: Normal Inspection, Normal Range of Motion, Non-Tender, No Pedal Edema Neuro Extensive - Mental Status: Alert, Oriented x3 Neuro Extensive - Motor, Sensory, Reflexes: CN II-XII Intact Psychiatric: Alert, Normal Affect, Normal Mood - Patient Data Lab Results Last 24 hrs: Laboratory Results - last 24 hr 02/04/20 02/04/20 02/04/20 Range/Units 08:10 08:10 08:10 WBC 10.81 (4.0-11.0) K/uL RBC 4.65 (4.30-5.90) M/uL Hgb 8.3 L (12.0-16.0) g/dL Hct 30.3 L (36.0-46.0) % MCV 65.2 L (80.0-98.0) fL MCH 17.8 L (27.0-32.0) pg MCHC 27.4 L (31.0-37.0) g/dL RDW Std Deviation 49.9 (28.0-62.0) fl RDW Coeff of Rajeev 21 H (11.0-15.0) % Plt Count 292 (150-400) K/uL MPV 9.60 (7.40-12.00) fL Neut % (Auto) 69.6 (48.0-80.0) % Lymph % (Auto) 18.0 (16.0-40.0) % Foard % (Auto) 10.2 (0.0-15.0) % Eos % (Auto) 1.9 (0.0-7.0) % Baso % (Auto) 0.3 (0.0-1.5) % Neut # (Auto) 7.5 H (1.4-5.7) K/uL Lymph # (Auto) 2.0 (0.6-2.4) K/uL Foard # (Auto) 1.1 H (0.0-0.8) K/uL Eos # (Auto) 0.2 (0.0-0.7) K/uL Baso # (Auto) 0.0 (0.0-0.1) K/uL Nucleated RBC % 0.0 /100WBC Nucleated RBCs # 0 K/uL ABG pH (7.35-7.45) ABG pCO2 (35-45) mmHG ABG pO2 (75-100) mmHG ABG HCO3 (22-26) mEq/L ABG Total CO2 ABG Base Excess (-2.0-2.0) Sodium 142 (136-145) mmol/L Potassium 4.4 (3.5-5.1) mmol/L Chloride 107 (98-107) mmol/L Carbon Dioxide 28.9 (21.0-32.0) mmol/L BUN 16 (7.0-18.0) mg/dL Creatinine 1.4 H (0.6-1.0) mg/dL Est Cr Clr Drug Dosing 27.41 mL/min Estimated GFR (MDRD) 37.0 ml/min Glucose 63 L (74-106) mg/dL Calcium 8.8 (8.5-10.1) mg/dL Magnesium 2.3 (1.8-2.4) mg/dL Total Bilirubin 1.2 H (0.2-1.0) mg/dL AST 23 (15-37) IU/L ALT 20 (14-63) IU/L Alkaline Phosphatase 122 H (46-116) U/L Troponin I < 0.050 (0.000-0.056) ng/mL B-Natriuretic Peptide 143 H (<100) PG/ML Total Protein 7.0 (6.4-8.2) g/dL Albumin 3.6 (3.4-5.0) g/dL Globulin 3.4 (2.6-4.0) g/dL Albumin/Globulin Ratio 1.1 (0.9-1.6) 02/04/20 Range/Units 08:11 WBC (4.0-11.0) K/uL RBC (4.30-5.90) M/uL Hgb (12.0-16.0) g/dL Hct (36.0-46.0) % MCV (80.0-98.0) fL MCH (27.0-32.0) pg MCHC (31.0-37.0) g/dL RDW Std Deviation (28.0-62.0) fl RDW Coeff of Rajeev (11.0-15.0) % Plt Count (150-400) K/uL MPV (7.40-12.00) fL Neut % (Auto) (48.0-80.0) % Lymph % (Auto) (16.0-40.0) % Foard % (Auto) (0.0-15.0) % Eos % (Auto) (0.0-7.0) % Baso % (Auto) (0.0-1.5) % Neut # (Auto) (1.4-5.7) K/uL Lymph # (Auto) (0.6-2.4) K/uL Foard # (Auto) (0.0-0.8) K/uL Eos # (Auto) (0.0-0.7) K/uL Baso # (Auto) (0.0-0.1) K/uL Nucleated RBC % /100WBC Nucleated RBCs # K/uL ABG pH 7.347 L (7.35-7.45) ABG pCO2 48 H (35-45) mmHG ABG pO2 63 L (75-100) mmHG ABG HCO3 26 (22-26) mEq/L ABG Total CO2 25.4 ABG Base Excess 0.4 (-2.0-2.0) Sodium (136-145) mmol/L Potassium (3.5-5.1) mmol/L Chloride (98-107) mmol/L Carbon Dioxide (21.0-32.0) mmol/L BUN (7.0-18.0) mg/dL Creatinine (0.6-1.0) mg/dL Est Cr Clr Drug Dosing mL/min Estimated GFR (MDRD) ml/min Glucose (74-106) mg/dL Calcium (8.5-10.1) mg/dL Magnesium (1.8-2.4) mg/dL Total Bilirubin (0.2-1.0) mg/dL AST (15-37) IU/L ALT (14-63) IU/L Alkaline Phosphatase (46-116) U/L Troponin I (0.000-0.056) ng/mL B-Natriuretic Peptide (<100) PG/ML Total Protein (6.4-8.2) g/dL Albumin (3.4-5.0) g/dL Globulin (2.6-4.0) g/dL Albumin/Globulin Ratio (0.9-1.6) Result Diagrams: 02/04/20 08:10 02/04/20 08:10 Saurabh Results Last 24 hrs: Microbiology 02/04/20 08:22 Influenza Type A Antigen Screen - Final Nasopharyngeal Swab NEGATIVE INFLUENZA A VIRUS AG REFERENCE RANGE: NEGATIVE Influenza Type B Antigen Screen - Final NEGATIVE INFLUENZA B VIRUS AG REFERENCE RANGE: NEGATIVE Sepsis Event Note - Evaluation Sepsis Screening Result: No Definite Risk - Focused Exam Vital Signs: Vital Signs Temp Pulse Resp BP Pulse Ox 02/04/20 08:07 98.2 F 74 28 H 127/55 L 99 Date Exam was Performed: 02/04/20 Time Exam was Performed: 14:45 - Problem List (1) Acute and chronic respiratory failure with hypoxia SNOMED Code(s): 11768721, 474066071 ICD Code: J96.21 - ACUTE AND CHRONIC RESPIRATORY FAILURE WITH HYPOXIA Status: Acute Current Visit: Yes (2) CHF (congestive heart failure) SNOMED Code(s): 53115478 ICD Code: I50.9 - HEART FAILURE, UNSPECIFIED Status: Acute Current Visit : Yes Qualifiers: Heart failure type: diastolic Heart failure chronicity: acute on chronic Qualified Code(s): I50.33 - Acute on chronic diastolic (congestive) heart failure (3) COPD exacerbation SNOMED Code(s): 282870215 ICD Code: J44.1 - CHRONIC OBSTRUCTIVE PULMONARY DISEASE W (ACUTE) EXACERBATION Status: Acute Current Visit: Yes (4) Anemia SNOMED Code(s): 066974504 ICD Code: D64.9 - ANEMIA, UNSPECIFIED Status: Acute Current Visit: Yes (5) HTN (hypertension) SNOMED Code(s): 00383600 ICD Code: I10 - ESSENTIAL (PRIMARY) HYPERTENSION Status: Chronic Current Visit: Yes (6) Hypothyroidism SNOMED Code(s): 71281293 ICD Code: E03.9 - HYPOTHYROIDISM, UNSPECIFIED Status: Chronic Current Visit: Yes (7) Diaphragm paralysis Status: Chronic Current Visit: Yes Problem List Initiated/Reviewed/Updated: Yes Orders Last 24hrs: Active Orders 24 hr Category Date Time Status Admission Status [Patient Status] [ADT] Stat ADT 02/04/20 10:40 Active BIPAP [RT BiPAP/CPAP] [RC] ASDIRECTED Care 02/04/20 10:05 Active EKG Documentation Completion [RC] STAT Care 02/04/20 08:11 Active RT Aerosol Therapy [RC] ASDIRECTED Care 02/04/20 08:13 Active CORONAVIRUS (COVID-19) PCR [MREF] Stat Lab 02/04/20 08:22 Received UA RFX SAURABH AND CULT IF INDIC [URIN] Stat Lab 02/04/20 08:11 Ordered Levofloxacin/Dextrose 5%-Water [Levaquin in D5W 750 MG/ Med 02/04/20 10:45 Ordered 150 ML] 750 mg Premix Bag 1 bag IV Q24H Medication Orders Levofloxacin/Dextrose 750 mg/ (Premix) 150 mls @ 100 mls/hr IV Q24H VI Assessment/Plan Comment:: This 74 year old female admitted with acute on chronic hypoxic respiratory failure, possible CHF exacerbation and URI 1. Acute on chronic hypoxic respiratory failure - Placed on Bipap in ED. - reports possible fever overnight - CXR shows possible mild CHF - Continue oxygen support - Influenza negative, Egan virus testing pending due to fevers - Hx of paralyzed diaphragm, R sided. - Treat with Levaquin 750 Q48hr for possible PNA. 2. CHF exacerbation - Lasix in the ED monitor effect - Continue Lasix 40 mg IV BID - ECHO - Hx diastolic dysfunction - Strict I/O - Daily weights - Low Na diet 3. Anemia - Hgb 8.3 today, 1 month ago 9.8 - Denies overt bleeding. Hx GERD and GI bleed in 2014 - Iron studies reveal significant iron deficiency anemia, will give Iron 200 mg IV today - Protonix IV 40 BID - Hemoccult stool 4. Dm Type 2: - Glucose on arrival 63, given OJ and BS increased to 100s. - Denies insulin this morning, Trulicity last night. - Monitor closely. - Novolog with meals, SSI. 5. HTN: - Stable, Monitor for now. VTE prophylaxis: SCDs for now GI prophylaxis: Protonix Code Status: Full code Dispo: 2-3 days pending improvement - Mortality Measure Prognosis:: Good
[2020-02-04] MEDS ORDERED: Ondansetron 4 MG/2 ML SDV ONE (11:30)
[2020-02-04] MEDS ORDERED: Ondansetron 4 MG/2 ML SDV IVPUSH ONE (11:36)
[2020-02-04] MEDS: Pantoprazole 40 MG in Sodium Chloride 0.9% 10 ML IV SCH ×2 (11:40→22:53)
[2020-02-04] MEDS ORDERED: Iron Sucrose Complex 200 MG in Sodium Chloride 0.9% 100 ML IV ONE ×2 (12:25→14:50)
--- NOTE | 2020-02-04 14:00 | PN ---
LUDY Physician - Brief Progress [id number]/17/2020 12:05[facility] Jojo [place], [place] - RAFFY (ANGELICA) - RAFFY KEVIN EDMONDSDate of Service 02/04/2020 12:05HPI/Events of Note eICU admission [id number] female with past history of hypothyroidism, PATSY, DM2, HTN and R hemidiaphragm elevation who presented to the hospital with dyspnea. Patient mentions she has been h aving worsening dyspnea over the last week and has been progressively worsening. Patient is on 3 L o f oxygen at home and was saturating 79% when EMS arrived. Patient also mentioned of feeling lethargy , sore throat, cough and possibly febrile as well. In the ED patient was requiring 15 L nonrebreathe r to maintain her sats with PO2 of 58 and respiratory rate in the 30s. Patient was subsequently plac ed on BiPAP and admitted to the ICU for further management.Patient seen on camera, on BPAPVitals sign sLabs/EMR/Imaging reviewedAcute hypoxic respiratory failure-Patient does not seem to have any prior h x of reactive/obstructive airway disease. Possible viral lower resp disease with superimposed volume component-Recommend scheduled DuoNebs every 6 hours while on BiPAP. Agree with atypical coverage for now. Can obtain procalcitonin.-Recommend and agree with COVID 19 rule out, isolation per local hospi shari policy (negative pressure room, etc.) -Recommend assessing volume status and giving Lasix as nee ded. If 2D echo has not been done previously recommend doing so at this time.-Strict I/Os and daily weights. -Although less likely, can consider CT PE protocol, if patient has any risk factors for pulm onary embolism and if RACHNA is of concern, can do LE duplex scan. PATSY-Recommend continuing home noninva sive therapy once off BiPAP as needed for sleepAKI on CKD-Slight bump in creatinine from previous jay ues with unclear etiology. Patient given Lasix in ED-Recommend strict I's and O's and continued rossana toring of creatinine to check trend.-If creatinine continues to uptrend recommend renal ultrasound.-R ecommend holding losartan until Cr Trend is established. GI prophy-PPIDVT prophy- SCD'sInterventions Major-Respiratory failure - evaluation and managementElectronically Signed by: SARA CASTRO) o n 02/04/2020 13:59
[2020-02-04] MEDS ORDERED: Ondansetron 4 MG/2 ML SDV IVPUSH PRN (14:02)
[2020-02-04] MEDS: Albuterol/Ipratropium 3.0-0.5 MG/3 ML Neb Soln NEB SCH ×2 (17:31→21:14)
[2020-02-04] MEDS: Nortriptyline 10 MG Cap PO SCH (20:39)
[2020-02-04] MEDS ORDERED: Furosemide 40 MG/4 ML VIAL IVPUSH SCH (21:00)
[2020-02-05] MEDS: Albuterol/Ipratropium 3.0-0.5 MG/3 ML Neb Soln NEB SCH ×6 (01:57→21:25)
--- NOTE | 2020-02-05 04:10 | PN ---
THC Physician - Brief Progress [id number]/18/2020 04:07[facility] Jojo veras, [place] - RAFFY (ANGELICA) - KEVIN DUARTEDate of Service 02/05/2020 04:07HPI/Events of Note Overnight events.Called for hypotension MAP 60 mm Hg. Patient rec'd Lasix and UOP 600 mL sinc e then. Chart reviewed briefly.Plan: NS 250 ml IV over 30 minutes.Interventions Major-Hypotension - e valuation and management
[2020-02-05] MEDS: Sodium Chloride 0.9% 250 ML IV SCH ×2 (04:15→06:39)
[2020-02-05 06:38] LABS: CARBON DIOXIDE,CO2 28.2 mmol/L (21.0-32.0); POTASSIUM,K 5.6 mmol/L (3.5-5.1)
[2020-02-05] MEDS: Levothyroxine 25 MCG Tab PO SCH (06:42)
[2020-02-05] MEDS: Levothyroxine 150 MCG Tab PO SCH (06:42)
[2020-02-05] MEDS ORDERED: Sodium Chloride 0.9% 250 ML IV SCH (06:45)
--- NOTE | 2020-02-05 06:46 | PN ---
THC Physician - Brief Progress [id number]/18/2020 06:43[facility] Jojo [place], [place] - RAFFY (ANGELICA) - KEVIN DUARTEDate of Service 02/05/2020 06:43HPI/Events of Note Overnight events.Called for pateint still being hypotensive despite 250 mL of NS. MAP 55 thou gh pateint asymptomatic, not dizzy when sitting at the edge of the bed.On caemra, the patient is asle ep, appears in NAD.Plan:Ordered another 250 mL of NS bolus.May not be able to tolerate aggressive diu resis at this time - Lasix order should be reviewed in am.Interventions Major-Hypotension - evaluatio n and management
--- NOTE | 2020-02-05 08:32 | PCM.PN ---
- General Info Date of Service: 02/05/20 Admission Dx/Problem (Free Text): Admission Diagnosis/Problem Admission Diagnosis/Problem Acute respiratory failure with hypoxia Subjective Update: Feeling ok this morning, having some more nausea. Not really hungry. No chest pain. reports feeling better on HFNC. Has dyspnea and dizziness. Continues to deny black or bloody stools at home, reports she does monitor this at home. Functional Status: Reports: Pain Controlled, Tolerating Diet - Review of Systems General: Reports: Weakness, Fatigue HEENT: Denies: Headaches, Sinus Congestion, Sore Throat Pulmonary: Reports: No Symptoms. Denies: Shortness of Breath Cardiovascular: Reports: No Symptoms. Denies: Chest Pain Gastrointestinal: Reports: Decreased Appetite, Nausea. Denies: Abdominal Pain, Diarrhea, Vomiting Genitourinary: Reports: No Symptoms. Denies: Dysuria, Frequency, Burning Musculoskeletal: Reports: No Symptoms Neurological: Reports: Dizziness Psychiatric: Reports: No Symptoms - Patient Data Vitals - Most Recent: Last Vital Signs Temp 97.4 F 02/05/20 04:00 Pulse 73 02/04/20 11:41 Resp 17 02/05/20 07:00 BP 87/27 L 02/05/20 07:00 Pulse Ox 98 02/05/20 07:00 Weight - Most Recent: 90.7 kg I&O - Last 24 Hours: Intake & Output 02/04/20 02/05/20 02/05/20 22:59 06:59 14:59 Intake Total 30 1160 250 Output Total 600 Balance 30 560 250 Lab Results Last 24 Hours: Laboratory Results - last 24 hr 02/04/20 02/04/20 02/04/20 Range/Units 08:10 08:10 08:10 WBC 10.81 (4.0-11.0) K/uL RBC 4.65 (4.30-5.90) M/uL Hgb 8.3 L (12.0-16.0) g/dL Hct 30.3 L (36.0-46.0) % MCV 65.2 L (80.0-98.0) fL MCH 17.8 L (27.0-32.0) pg MCHC 27.4 L (31.0-37.0) g/dL RDW Std Deviation 49.9 (28.0-62.0) fl RDW Coeff of Rajeev 21 H (11.0-15.0) % Plt Count 292 (150-400) K/uL MPV 9.60 (7.40-12.00) fL Neut % (Auto) 69.6 (48.0-80.0) % Lymph % (Auto) 18.0 (16.0-40.0) % Mcpherson % (Auto) 10.2 (0.0-15.0) % Eos % (Auto) 1.9 (0.0-7.0) % Baso % (Auto) 0.3 (0.0-1.5) % Neut # (Auto) 7.5 H (1.4-5.7) K/uL Lymph # (Auto) 2.0 (0.6-2.4) K/uL Mcpherson # (Auto) 1.1 H (0.0-0.8) K/uL Eos # (Auto) 0.2 (0.0-0.7) K/uL Baso # (Auto) 0.0 (0.0-0.1) K/uL Nucleated RBC % 0.0 /100WBC Nucleated RBCs # 0 K/uL Smear Path Review Absolute Retic (20-80) K/uL Percent Retic (0.5-1.5) % Immature Retic Fraction % Sodium 142 (136-145) mmol/L Potassium 4.4 (3.5-5.1) mmol/L Chloride 107 (98-107) mmol/L Carbon Dioxide 28.9 (21.0-32.0) mmol/L BUN 16 (7.0-18.0) mg/dL Creatinine 1.4 H (0.6-1.0) mg/dL Est Cr Clr Drug Dosing 27.41 mL/min Estimated GFR (MDRD) 37.0 ml/min Glucose 63 L (74-106) mg/dL POC Glucose (60-110) mg/dL Calcium 8.8 (8.5-10.1) mg/dL Magnesium 2.3 (1.8-2.4) mg/dL Iron (50-175) ug/dL TIBC (250-450) ug/dL % Saturation (20-55) % Transferrin (200-400) ug/dL Ferritin (8-252) ng/mL Total Bilirubin 1.2 H (0.2-1.0) mg/dL AST 23 (15-37) IU/L ALT 20 (14-63) IU/L Alkaline Phosphatase 122 H (46-116) U/L Troponin I < 0.050 (0.000-0.056) ng/mL B-Natriuretic Peptide 143 H (<100) PG/ML Total Protein 7.0 (6.4-8.2) g/dL Albumin 3.6 (3.4-5.0) g/dL Globulin 3.4 (2.6-4.0) g/dL Albumin/Globulin Ratio 1.1 (0.9-1.6) Vitamin B12 (193-986) pg/mL Folate (8.60-58.90) ng/mL Urine Color Urine Appearance Urine pH (5.0-8.0) Ur Specific Ellsworth (1.001-1.035) Urine Protein (NEGATIVE) mg/dL Urine Glucose (UA) (NEGATIVE) mg/dL Urine Ketones (NEGATIVE) mg/dL Urine Occult Blood (NEGATIVE) Urine Nitrite (NEGATIVE) Urine Bilirubin (NEGATIVE) Urine Urobilinogen (<2.0) EU/dL Ur Leukocyte Esterase (NEGATIVE) Blood Type Antibody Screen Crossmatch 02/04/20 02/04/20 02/04/20 Range/Units 08:10 08:10 08:10 WBC (4.0-11.0) K/uL RBC 4.65 (4.30-5.90) M/uL Hgb (12.0-16.0) g/dL Hct (36.0-46.0) % MCV (80.0-98.0) fL MCH (27.0-32.0) pg MCHC (31.0-37.0) g/dL RDW Std Deviation (28.0-62.0) fl RDW Coeff of Rajeev (11.0-15.0) % Plt Count (150-400) K/uL MPV (7.40-12.00) fL Neut % (Auto) (48.0-80.0) % Lymph % (Auto) (16.0-40.0) % Mcpherson % (Auto) (0.0-15.0) % Eos % (Auto) (0.0-7.0) % Baso % (Auto) (0.0-1.5) % Neut # (Auto) (1.4-5.7) K/uL Lymph # (Auto) (0.6-2.4) K/uL Mcpherson # (Auto) (0.0-0.8) K/uL Eos # (Auto) (0.0-0.7) K/uL Baso # (Auto) (0.0-0.1) K/uL Nucleated RBC % /100WBC Nucleated RBCs # K/uL Smear Path Review Absolute Retic 120.90 H (20-80) K/uL Percent Retic 2.6 H (0.5-1.5) % Immature Retic Fraction 38 % Sodium (136-145) mmol/L Potassium (3.5-5.1) mmol/L Chloride (98-107) mmol/L Carbon Dioxide (21.0-32.0) mmol/L BUN (7.0-18.0) mg/dL Creatinine (0.6-1.0) mg/dL Est Cr Clr Drug Dosing mL/min Estimated GFR (MDRD) ml/min Glucose (74-106) mg/dL POC Glucose (60-110) mg/dL Calcium (8.5-10.1) mg/dL Magnesium (1.8-2.4) mg/dL Iron 13 L (50-175) ug/dL TIBC 392 (250-450) ug/dL % Saturation 3.32 L (20-55) % Transferrin 274 (200-400) ug/dL Ferritin (8-252) ng/mL Total Bilirubin (0.2-1.0) mg/dL AST (15-37) IU/L ALT (14-63) IU/L Alkaline Phosphatase (46-116) U/L Troponin I (0.000-0.056) ng/mL B-Natriuretic Peptide (<100) PG/ML Total Protein (6.4-8.2) g/dL Albumin (3.4-5.0) g/dL Globulin (2.6-4.0) g/dL Albumin/Globulin Ratio (0.9-1.6) Vitamin B12 661 (193-986) pg/mL Folate 50.20 (8.60-58.90) ng/mL Urine Color Urine Appearance Urine pH (5.0-8.0) Ur Specific Ellsworth (1.001-1.035) Urine Protein (NEGATIVE) mg/dL Urine Glucose (UA) (NEGATIVE) mg/dL Urine Ketones (NEGATIVE) mg/dL Urine Occult Blood (NEGATIVE) Urine Nitrite (NEGATIVE) Urine Bilirubin (NEGATIVE) Urine Urobilinogen (<2.0) EU/dL Ur Leukocyte Esterase (NEGATIVE) Blood Type Antibody Screen Crossmatch 02/04/20 02/04/20 02/04/20 Range/Units 08:10 08:10 10:10 WBC (4.0-11.0) K/uL RBC (4.30-5.90) M/uL Hgb (12.0-16.0) g/dL Hct (36.0-46.0) % MCV (80.0-98.0) fL MCH (27.0-32.0) pg MCHC (31.0-37.0) g/dL RDW Std Deviation (28.0-62.0) fl RDW Coeff of Rajeev (11.0-15.0) % Plt Count (150-400) K/uL MPV (7.40-12.00) fL Neut % (Auto) (48.0-80.0) % Lymph % (Auto) (16.0-40.0) % Mcpherson % (Auto) (0.0-15.0) % Eos % (Auto) (0.0-7.0) % Baso % (Auto) (0.0-1.5) % Neut # (Auto) (1.4-5.7) K/uL Lymph # (Auto) (0.6-2.4) K/uL Mcpherson # (Auto) (0.0-0.8) K/uL Eos # (Auto) (0.0-0.7) K/uL Baso # (Auto) (0.0-0.1) K/uL Nucleated RBC % /100WBC Nucleated RBCs # K/uL Smear Path Review SENT TO PATHOLOGY Absolute Retic (20-80) K/uL Percent Retic (0.5-1.5) % Immature Retic Fraction % Sodium (136-145) mmol/L Potassium (3.5-5.1) mmol/L Chloride (98-107) mmol/L Carbon Dioxide (21.0-32.0) mmol/L BUN (7.0-18.0) mg/dL Creatinine (0.6-1.0) mg/dL Est Cr Clr Drug Dosing mL/min Estimated GFR (MDRD) ml/min Glucose (74-106) mg/dL POC Glucose 62 (60-110) mg/dL Calcium (8.5-10.1) mg/dL Magnesium (1.8-2.4) mg/dL Iron (50-175) ug/dL TIBC (250-450) ug/dL % Saturation (20-55) % Transferrin (200-400) ug/dL Ferritin 18 (8-252) ng/mL Total Bilirubin (0.2-1.0) mg/dL AST (15-37) IU/L ALT (14-63) IU/L Alkaline Phosphatase (46-116) U/L Troponin I (0.000-0.056) ng/mL B-Natriuretic Peptide (<100) PG/ML Total Protein (6.4-8.2) g/dL Albumin (3.4-5.0) g/dL Globulin (2.6-4.0) g/dL Albumin/Globulin Ratio (0.9-1.6) Vitamin B12 (193-986) pg/mL Folate (8.60-58.90) ng/mL Urine Color Urine Appearance Urine pH (5.0-8.0) Ur Specific Ellsworth (1.001-1.035) Urine Protein (NEGATIVE) mg/dL Urine Glucose (UA) (NEGATIVE) mg/dL Urine Ketones (NEGATIVE) mg/dL Urine Occult Blood (NEGATIVE) Urine Nitrite (NEGATIVE) Urine Bilirubin (NEGATIVE) Urine Urobilinogen (<2.0) EU/dL Ur Leukocyte Esterase (NEGATIVE) Blood Type Antibody Screen Crossmatch 02/04/20 02/04/20 02/04/20 Range/Units 11:03 12:10 14:00 WBC (4.0-11.0) K/uL RBC (4.30-5.90) M/uL Hgb (12.0-16.0) g/dL Hct (36.0-46.0) % MCV (80.0-98.0) fL MCH (27.0-32.0) pg MCHC (31.0-37.0) g/dL RDW Std Deviation (28.0-62.0) fl RDW Coeff of Rajeev (11.0-15.0) % Plt Count (150-400) K/uL MPV (7.40-12.00) fL Neut % (Auto) (48.0-80.0) % Lymph % (Auto) (16.0-40.0) % Mcpherson % (Auto) (0.0-15.0) % Eos % (Auto) (0.0-7.0) % Baso % (Auto) (0.0-1.5) % Neut # (Auto) (1.4-5.7) K/uL Lymph # (Auto) (0.6-2.4) K/uL Mcpherson # (Auto) (0.0-0.8) K/uL Eos # (Auto) (0.0-0.7) K/uL Baso # (Auto) (0.0-0.1) K/uL Nucleated RBC % /100WBC Nucleated RBCs # K/uL Smear Path Review Absolute Retic (20-80) K/uL Percent Retic (0.5-1.5) % Immature Retic Fraction % Sodium (136-145) mmol/L Potassium (3.5-5.1) mmol/L Chloride (98-107) mmol/L Carbon Dioxide (21.0-32.0) mmol/L BUN (7.0-18.0) mg/dL Creatinine (0.6-1.0) mg/dL Est Cr Clr Drug Dosing mL/min Estimated GFR (MDRD) ml/min Glucose (74-106) mg/dL POC Glucose 106 128 H (60-110) mg/dL Calcium (8.5-10.1) mg/dL Magnesium (1.8-2.4) mg/dL Iron (50-175) ug/dL TIBC (250-450) ug/dL % Saturation (20-55) % Transferrin (200-400) ug/dL Ferritin (8-252) ng/mL Total Bilirubin (0.2-1.0) mg/dL AST (15-37) IU/L ALT (14-63) IU/L Alkaline Phosphatase (46-116) U/L Troponin I (0.000-0.056) ng/mL B-Natriuretic Peptide (<100) PG/ML Total Protein (6.4-8.2) g/dL Albumin (3.4-5.0) g/dL Globulin (2.6-4.0) g/dL Albumin/Globulin Ratio (0.9-1.6) Vitamin B12 (193-986) pg/mL Folate (8.60-58.90) ng/mL Urine Color Urine Appearance Urine pH (5.0-8.0) Ur Specific Ellsworth (1.001-1.035) Urine Protein (NEGATIVE) mg/dL Urine Glucose (UA) (NEGATIVE) mg/dL Urine Ketones (NEGATIVE) mg/dL Urine Occult Blood (NEGATIVE) Urine Nitrite (NEGATIVE) Urine Bilirubin (NEGATIVE) Urine Urobilinogen (<2.0) EU/dL Ur Leukocyte Esterase (NEGATIVE) Blood Type B POSITIVE Antibody Screen NEGATIVE Crossmatch See Detail 02/04/20 02/04/20 02/05/20 Range/Units 17:10 19:20 06:00 WBC 9.51 (4.0-11.0) K/uL RBC 4.26 L (4.30-5.90) M/uL Hgb 7.5 L (12.0-16.0) g/dL Hct 28.5 L (36.0-46.0) % MCV 66.9 L (80.0-98.0) fL MCH 17.6 L (27.0-32.0) pg MCHC 26.3 L (31.0-37.0) g/dL RDW Std Deviation 51.9 (28.0-62.0) fl RDW Coeff of Rajeev 21 H (11.0-15.0) % Plt Count 298 (150-400) K/uL MPV 9.60 (7.40-12.00) fL Neut % (Auto) 81.0 H (48.0-80.0) % Lymph % (Auto) 7.3 L (16.0-40.0) % Mcpherson % (Auto) 11.7 (0.0-15.0) % Eos % (Auto) 0.0 (0.0-7.0) % Baso % (Auto) 0.0 (0.0-1.5) % Neut # (Auto) 7.7 H (1.4-5.7) K/uL Lymph # (Auto) 0.7 (0.6-2.4) K/uL Mcpherson # (Auto) 1.1 H (0.0-0.8) K/uL Eos # (Auto) 0.0 (0.0-0.7) K/uL Baso # (Auto) 0.0 (0.0-0.1) K/uL Nucleated RBC % 1.2 /100WBC Nucleated RBCs # 0 K/uL Smear Path Review Absolute Retic (20-80) K/uL Percent Retic (0.5-1.5) % Immature Retic Fraction % Sodium (136-145) mmol/L Potassium (3.5-5.1) mmol/L Chloride (98-107) mmol/L Carbon Dioxide (21.0-32.0) mmol/L BUN (7.0-18.0) mg/dL Creatinine (0.6-1.0) mg/dL Est Cr Clr Drug Dosing mL/min Estimated GFR (MDRD) ml/min Glucose (74-106) mg/dL POC Glucose 163 H (60-110) mg/dL Calcium (8.5-10.1) mg/dL Magnesium (1.8-2.4) mg/dL Iron (50-175) ug/dL TIBC (250-450) ug/dL % Saturation (20-55) % Transferrin (200-400) ug/dL Ferritin (8-252) ng/mL Total Bilirubin (0.2-1.0) mg/dL AST (15-37) IU/L ALT (14-63) IU/L Alkaline Phosphatase (46-116) U/L Troponin I (0.000-0.056) ng/mL B-Natriuretic Peptide (<100) PG/ML Total Protein (6.4-8.2) g/dL Albumin (3.4-5.0) g/dL Globulin (2.6-4.0) g/dL Albumin/Globulin Ratio (0.9-1.6) Vitamin B12 (193-986) pg/mL Folate (8.60-58.90) ng/mL Urine Color YELLOW Urine Appearance CLEAR Urine pH 5.0 (5.0-8.0) Ur Specific Ellsworth 1.025 (1.001-1.035) Urine Protein NEGATIVE (NEGATIVE) mg/dL Urine Glucose (UA) NEGATIVE (NEGATIVE) mg/dL Urine Ketones NEGATIVE (NEGATIVE) mg/dL Urine Occult Blood NEGATIVE (NEGATIVE) Urine Nitrite NEGATIVE (NEGATIVE) Urine Bilirubin NEGATIVE (NEGATIVE) Urine Urobilinogen 0.2 (<2.0) EU/dL Ur Leukocyte Esterase NEGATIVE (NEGATIVE) Blood Type Antibody Screen Crossmatch 02/05/20 Range/Units 06:00 WBC (4.0-11.0) K/uL RBC (4.30-5.90) M/uL Hgb (12.0-16.0) g/dL Hct (36.0-46.0) % MCV (80.0-98.0) fL MCH (27.0-32.0) pg MCHC (31.0-37.0) g/dL RDW Std Deviation (28.0-62.0) fl RDW Coeff of Rajeev (11.0-15.0) % Plt Count (150-400) K/uL MPV (7.40-12.00) fL Neut % (Auto) (48.0-80.0) % Lymph % (Auto) (16.0-40.0) % Mcpherson % (Auto) (0.0-15.0) % Eos % (Auto) (0.0-7.0) % Baso % (Auto) (0.0-1.5) % Neut # (Auto) (1.4-5.7) K/uL Lymph # (Auto) (0.6-2.4) K/uL Mcpherson # (Auto) (0.0-0.8) K/uL Eos # (Auto) (0.0-0.7) K/uL Baso # (Auto) (0.0-0.1) K/uL Nucleated RBC % /100WBC Nucleated RBCs # K/uL Smear Path Review Absolute Retic (20-80) K/uL Percent Retic (0.5-1.5) % Immature Retic Fraction % Sodium 139 (136-145) mmol/L Potassium 5.6 H (3.5-5.1) mmol/L Chloride 106 (98-107) mmol/L Carbon Dioxide 28.2 (21.0-32.0) mmol/L BUN 25 H (7.0-18.0) mg/dL Creatinine 1.9 H (0.6-1.0) mg/dL Est Cr Clr Drug Dosing 20.20 mL/min Estimated GFR (MDRD) 26.0 ml/min Glucose 213 H (74-106) mg/dL POC Glucose (60-110) mg/dL Calcium 8.0 L (8.5-10.1) mg/dL Magnesium 2.3 (1.8-2.4) mg/dL Iron (50-175) ug/dL TIBC (250-450) ug/dL % Saturation (20-55) % Transferrin (200-400) ug/dL Ferritin (8-252) ng/mL Total Bilirubin 0.9 (0.2-1.0) mg/dL AST 20 (15-37) IU/L ALT 19 (14-63) IU/L Alkaline Phosphatase 102 (46-116) U/L Troponin I (0.000-0.056) ng/mL B-Natriuretic Peptide (<100) PG/ML Total Protein 6.2 L (6.4-8.2) g/dL Albumin 3.1 L (3.4-5.0) g/dL Globulin 3.1 (2.6-4.0) g/dL Albumin/Globulin Ratio 1.0 (0.9-1.6) Vitamin B12 (193-986) pg/mL Folate (8.60-58.90) ng/mL Urine Color Urine Appearance Urine pH (5.0-8.0) Ur Specific Ellsworth (1.001-1.035) Urine Protein (NEGATIVE) mg/dL Urine Glucose (UA) (NEGATIVE) mg/dL Urine Ketones (NEGATIVE) mg/dL Urine Occult Blood (NEGATIVE) Urine Nitrite (NEGATIVE) Urine Bilirubin (NEGATIVE) Urine Urobilinogen (<2.0) EU/dL Ur Leukocyte Esterase (NEGATIVE) Blood Type Antibody Screen Crossmatch Saurabh Results Last 24 Hours: Microbiology 02/04/20 08:22 Influenza Type A Antigen Screen - Final Nasopharyngeal Swab NEGATIVE INFLUENZA A VIRUS AG REFERENCE RANGE: NEGATIVE Influenza Type B Antigen Screen - Final NEGATIVE INFLUENZA B VIRUS AG REFERENCE RANGE: NEGATIVE Med Orders - Current: Current Medications Acetaminophen (Tylenol) 650 mg PO Q4H PRN PRN Reason: Pain (Mild 1-3)/fever Albuterol/Ipratropium (Duoneb 3.0-0.5 Mg/3 Ml) 3 ml NEB Q4HRRT VI Last Admin: 02/05/20 06:00 Dose: 3 ml Dicyclomine HCl (Bentyl) 10 mg PO DAILY [facility] Pantoprazole Sodium 40 mg/ (Sodium Chloride) 10 mls @ 300 mls/hr IV Q12H [facility] Last Admin: 02/04/20 22:53 Dose: 300 mls/hr Levofloxacin/Dextrose 750 mg/ (Premix) 150 mls @ 100 mls/hr IV Q48H [facility] Sodium Chloride (Normal Saline) 250 mls @ 500 mls/hr IV ASDIRECTED [facility] Last Admin: 02/05/20 06:39 Dose: 500 mls/hr Sodium Chloride (Normal Saline) 250 mls @ 500 mls/hr IV ASDIRECTED [facility] Insulin Aspart (Novolog) 0 unit SUBCUT TIDAC [facility]; Protocol Levothyroxine Sodium (Levothyroxine) 150 mcg PO ACBREAKFAST [facility] Last Admin: 02/05/20 06:42 Dose: 150 mcg Levothyroxine Sodium (Levothyroxine) 25 mcg PO ACBREAKFAST [facility] Last Admin: 02/05/20 06:42 Dose: 25 mcg Metoprolol Succinate (Toprol Xl) 25 mg PO DAILY [facility] Nortriptyline HCl (Nortriptyline) 20 mg PO BEDTIME [facility] Last Admin: 02/04/20 20:39 Dose: 20 mg Ondansetron HCl (Zofran) 4 mg IVPUSH Q4H PRN PRN Reason: Nausea Discontinued Medications Albuterol/Ipratropium (Duoneb 3.0-0.5 Mg/3 Ml) 3 ml NEB ONETIME ONE Stop: 02/04/20 08:13 Last Admin: 02/04/20 08:23 Dose: 3 ml Albuterol/Ipratropium (Duoneb 3.0-0.5 Mg/3 Ml) Confirm Administered Dose 6 ml .ROUTE .STK-MED ONE Stop: 02/04/20 08:12 Last Admin: 02/04/20 08:35 Dose: Not Given Furosemide (Lasix) 40 mg IVPUSH NOW ONE Stop: 02/04/20 09:37 Last Admin: 02/04/20 10:47 Dose: 40 mg Furosemide (Lasix) 40 mg IVPUSH BID [facility] Last Admin: 02/04/20 20:39 Dose: 40 mg Magnesium Sulfate 2 gm/ Premix 50 mls @ 50 mls/hr IV ONETIME ONE Stop: 02/04/20 09:11 Last Admin: 02/04/20 08:35 Dose: Not Given Magnesium Sulfate 1 gm/ Sodium (Chloride) 52 mls @ 104 mls/hr IV ONETIME ONE Stop: 02/04/20 08:59 Last Admin: 02/04/20 08:40 Dose: 104 mls/hr Levofloxacin/Dextrose 750 mg/ (Premix) 150 mls @ 100 mls/hr IV Q24H [facility] Last Infusion: 02/04/20 11:10 Dose: 50 mls/hr Iron Sucrose 200 mg/ Sodium (Chloride) 110 mls @ 400 mls/hr IV ONETIME ONE Stop: 02/04/20 12:40 Last Admin: 02/04/20 16:41 Dose: Not Given Iron Sucrose 200 mg/ Sodium (Chloride) 110 mls @ 220 mls/hr IV ONETIME ONE Stop: 02/04/20 15:19 Last Admin: 02/04/20 16:39 Dose: 220 mls/hr Methylprednisolone Sodium Succinate (Solu-Medrol) 125 mg IVPUSH ONETIME ONE Stop: 02/04/20 08:14 Last Admin: 02/04/20 08:40 Dose: 125 mg Naproxen (Naproxen Sodium) 440 mg PO ONETIME VI Stop: 02/04/20 23:59 Ondansetron HCl (Zofran) Confirm Administered Dose 4 mg .ROUTE .STK-MED ONE Stop: 02/04/20 11:31 Last Admin: 02/04/20 11:36 Dose: Not Given Ondansetron HCl (Zofran) 4 mg IVPUSH ONETIME ONE Stop: 02/04/20 11:37 Last Admin: 02/04/20 11:37 Dose: 4 mg - Exam Quality Assessment: Supplemental Oxygen, DVT Prophylaxis General: Alert, Oriented, Cooperative, No Acute Distress Neck: Supple Lungs: Decreased Breath Sounds, Crackles (fine crackles bibasilar) Cardiovascular: Regular Rate, Regular Rhythm GI/Abdominal Exam: Normal Bowel Sounds, Soft, Non-Tender Back Exam: Normal Inspection, Full Range of Motion Extremities: Normal Inspection, Normal Range of Motion, Non-Tender, No Pedal Edema Neurological: No New Focal Deficit Psy/Mental Status: Alert, Normal Affect, Normal Mood Sepsis Event Note - Evaluation Sepsis Screening Result: No Definite Risk - Focused Exam Vital Signs: Vital Signs Temp Resp BP BP Pulse Ox Pulse Ox 02/05/20 07:00 17 87/27 L 98 02/05/20 06:03 91 L 02/05/20 06:00 10 L 96/28 L 104/47 L 87 L 02/05/20 05:00 20 89/34 L 96 02/05/20 04:00 97.4 F 18 100/28 L 100 02/05/20 03:00 21 H 96/29 L 97 02/05/20 02:00 22 H 112/61 93 L 02/05/20 01:00 15 102/54 L 94 L 02/05/20 00:00 18 95/49 L 96 02/04/20 23:00 98 F 13 113/47 L 98 02/04/20 22:00 21 H 95/57 L 92 L 02/04/20 21:00 15 90/33 L 94 L Date Exam was Performed: 02/05/20 Time Exam was Performed: 14:36 - Problem List & Annotations (1) Acute and chronic respiratory failure with hypoxia SNOMED Code(s): 05540170, 080933900 Code(s): J96.21 - ACUTE AND CHRONIC RESPIRATORY FAILURE WITH HYPOXIA Status : Acute Current Visit: Yes (2) CHF (congestive heart failure) SNOMED Code(s): 27822999 Code(s): I50.9 - HEART FAILURE, UNSPECIFIED Status: Acute Current Visit: Yes Qualifiers: Heart failure type: diastolic Heart failure chronicity: acute on chronic Qualified Code(s): I50.33 - Acute on chronic diastolic (congestive) heart failure (3) COPD exacerbation SNOMED Code(s): 895875421 Code(s): J44.1 - CHRONIC OBSTRUCTIVE PULMONARY DISEASE W (ACUTE) EXACERBATION Status: Acute Current Visit: Yes (4) Anemia SNOMED Code(s): 505850974 Code(s): D64.9 - ANEMIA, UNSPECIFIED Status: Acute Current Visit: Yes (5) HTN (hypertension) SNOMED Code(s): 06439241 Code(s): I10 - ESSENTIAL (PRIMARY) HYPERTENSION Status: Chronic Current Visit: Yes (6) Hypothyroidism SNOMED Code(s): 34804643 Code(s): E03.9 - HYPOTHYROIDISM, UNSPECIFIED Status: Chronic Current Visit: Yes (7) Diaphragm paralysis Status: Chronic Current Visit: Yes - Problem List Review Problem List Initiated/Reviewed/Updated: Yes - My Orders Last 24 Hours: My Active Orders 02/04/20 10:40 Admission Status [Patient Status] [ADT] Stat 02/04/20 11:13 Hemoccult [OCCULT BLOOD DIAGNOSTIC] [OP] Stat 02/04/20 11:20 Isolation [COMM] Stat 02/04/20 11:30 Pantoprazole [ProTONIX IV] 40 mg Sodium Chloride 0.9% [Normal Saline] 10 ml IV Q12H 02/04/20 12:10 RED BLOOD CELLS LP [BBK] Stat TYPE AND SCREEN [BBK] Stat 02/04/20 12:38 Blood Glucose Check, Bedside [RC] TIDAC 02/04/20 14:02 Height and Weight [RC] DAILY Oxygen Therapy [RC] PRN VTE/DVT Education [RC] PER UNIT ROUTINE Vital Signs [RC] Q1H Acetaminophen [Tylenol] 650 mg PO Q4H PRN Ondansetron [Zofran] 4 mg IVPUSH Q4H PRN Resuscitation Status Routine 02/04/20 14:03 Antiembolic Devices [RC] PER UNIT ROUTINE Sequential Compression Device [OM.PC] Per Unit Routine 02/04/20 14:04 RT Aerosol Therapy [RC] ASDIRECTED 02/04/20 14:05 Cardiac Monitoring [RC] Q8H Intake and Output Strict [RC] Q12H 02/04/20 14:15 Echo Comp wo Cont [US] Urgent 02/04/20 18:00 Albuterol/Ipratropium [DuoNeb 3.0-0.5 MG/3 ML] 3 ml NEB Q4HRRT 02/04/20 21:00 Nortriptyline 20 mg PO BEDTIME 02/04/20 Lunch ADA Diabetic [[place] [employer] Diet] [DIET] 02/05/20 07:30 Levothyroxine 150 mcg PO ACBREAKFAST 02/05/20 08:07 Insulin Aspart [NovoLOG] See Protocol SUBCUT TIDAC 02/05/20 08:31 Transfuse PRBC [Transfuse Red Blood Cells] [COMM] Urgent 02/05/20 09:00 Dicyclomine [Bentyl] 10 mg PO DAILY Metoprolol Succinate [Toprol XL] 25 mg PO DAILY 03/19/20 10:45 Levofloxacin/Dextrose 5%-Water [Levaquin in D5W 750 MG/150 ML] 750 mg Premix Bag 1 bag IV Q48H - Plan Plan:: This 74 year old female admitted with acute on chronic hypoxic respiratory failure, possible CHF exacerbation and URI 1. Acute on chronic hypoxic respiratory failure - Doing well this afternoon on HF NC, place on CPAP at night per home pressure with oxygen - COVID-19 negative, Influenza negative - Continue oxygen support - Hx of paralyzed diaphragm, R sided. - Continue Levaquin 750 Q48hr for possible PNA, suspicion low. 2. CHF exacerbation - Didn't tolerate diuresis, Lasix held. Given 500 ml bolus overnight total. - ECHO pending. - Hx diastolic dysfunction - Strict I/O - Daily weights - Low Na diet 3. Anemia, symptomatic - Hgb 7.5 today, will transfuse 1 unit pRBC today and monitor hgb and hypoxia. - Denies overt bleeding. Hx GERD and GI bleed in 2014 - Iron studies reveal significant iron deficiency anemia, will give another Iron 200 mg IV today - Protonix IV 40 BID - Hemoccult stool - Will need outpatient follow up for endoscopy. 4. Dm Type 2: - Novolog SSI, not eating well. Hold long acting for now to limit hypoglycemia. - Monitor closely. 5. HTN: - Holding anti-hypertensives, Monitor for now. VTE prophylaxis: SCDs for now GI prophylaxis: Protonix Code Status: Full code Dispo: 2-3 days pending improvement
[2020-02-05] MEDS ORDERED: Dicyclomine 10 MG Cap PO SCH (09:00)
[2020-02-05] MEDS: Insulin Aspart 100 Units/ML 3 ML Pen SUBCUT SCH ×3 (09:46→18:17)
[2020-02-05] MEDS: Metoprolol Succinate 25 MG Tab.ER PO SCH (09:49)
[2020-02-05] MEDS ORDERED: Metoclopramide 10 MG/2 ML SDV IVPUSH PRN (11:23)
[2020-02-05] MEDS: Pantoprazole 40 MG in Sodium Chloride 0.9% 10 ML IV SCH ×2 (11:38→23:36)
[2020-02-05] MEDS ORDERED: Alum Hydrox/Mag Hydrox/Simeth 15 ML, Lidocaine 2% 5 ML PO ONE ×2 (12:26)
--- NOTE | 2020-02-05 13:01 | PN ---
THC Physician - Brief Progress TesaIEGWSMMFU64/18/2020 12:15[facility] Jojo Green, ORA - RAFFY (ANGELICA) - KEVIN DUARTEDate of Service 02/05/2020 12:15HPI/Events of Note eICU progress note:74-year-old female presenting with hypercapnic hypoxemic respiratory failu re and severe microcytic anemia. Patient so far has had a total of 400 mg of Venofer on 02/04/2020.Vi deocamera exam:74-year-old female in bed in no acute distressHeart rate 84 respiratory 21 SPO2 89% bl ood pressure 92/29 ( patient laying on her side )Patient likely needs 1000mg of venofer over a weekSh e likely also needs a colonoscopy to evaluate where the loss of substantial iron is going.If iron lab s are still low next week, patient could be set up to have home nursing give IV venofer.EICU assessme nt:Acute hypoxemic Respiratory failureSevere Microcytic/ Fe Deficiency AnemiaAKIEICU recs:Consider tr anfusing if Hb < 8.0 due to AKINo further nephro toxins such as lasixAwait COVID testing.Appropriate cancer screens such as colonoscopyAvoid pill form of iron if absorption is the issue.Maintain sats 94 -98%Consider screen Respiratory InfectionAbsolute smoking cessationWould start patient on LAMA/LABAOu tpatient PFTQualify for O2 with 6MWT, and Overnight pulse oxConsider outpatient infusion center.Pleas e call as neededInterventions Major-Respiratory failure - evaluation and managementMinor-Clinical ass essment - ordering diagnostic tests, Communication with other healthcare providers and/or familyElect ronically Signed by: SYDNIE VIVAS) on 02/05/2020 13:00
[2020-02-05] MEDS ORDERED: Iron Sucrose Complex 100 MG/5 ML SDV IVPUSH ONE (14:46)
[2020-02-05] MEDS ORDERED: Iron Sucrose Complex 200 MG in Sodium Chloride 0.9% 100 ML IV ONE (15:00)
[2020-02-05] MEDS ORDERED: Furosemide 20 MG/2 ML VIAL IVPUSH ONE (20:31)
[2020-02-05] MEDS ORDERED: Hydrocolloid Dressing 4x4 Bandage ONE (20:47)
[2020-02-05] MEDS: Nortriptyline 10 MG Cap PO SCH (20:48)
[2020-02-06] MEDS: Albuterol/Ipratropium 3.0-0.5 MG/3 ML Neb Soln NEB SCH ×6 (01:13→21:16)
[2020-02-06] MEDS ORDERED: Lidocaine 5% 700 MG Patch TOP ONE (02:05)
[2020-02-06] MEDS: Acetaminophen 325 MG Tab PO PRN ×2 (02:14→19:57)
[2020-02-06 06:59] LABS: CARBON DIOXIDE,CO2 30.6 mmol/L (21.0-32.0)
[2020-02-06] MEDS: Levothyroxine 150 MCG Tab PO SCH (07:58)
[2020-02-06] MEDS: Insulin Aspart 100 Units/ML 3 ML Pen SUBCUT SCH ×3 (07:59→18:25)
[2020-02-06] MEDS: Levothyroxine 25 MCG Tab PO SCH (07:59)
--- NOTE | 2020-02-06 08:06 | PCM.PN ---
- General Info Date of Service: 02/06/20 Admission Dx/Problem (Free Text): Admission Diagnosis/Problem Admission Diagnosis/Problem Acute respiratory failure with hypoxia Subjective Update: feeling improved today, reports chronic back pain is acting up since NSAID on hold. Lidocaine patch helping a lot. No chest pain. nausea is better. Dizziness is better but still there a little bit when moving to sitting position. Dyspnea improved. No fevers. Functional Status: Reports: Pain Controlled - Review of Systems General: Reports: Fatigue, Malaise. Denies: Fever, Weakness HEENT: Reports: Other (dizziness). Denies: Headaches, Sore Throat, Visual Changes Pulmonary: Reports: Shortness of Breath. Denies: Cough Cardiovascular: Reports: Dyspnea on Exertion. Denies: Chest Pain Gastrointestinal: Reports: No Symptoms. Denies: Abdominal Pain, Nausea, Vomiting Genitourinary: Reports: No Symptoms. Denies: Dysuria, Frequency, Burning Musculoskeletal: Reports: No Symptoms Skin: Reports: No Symptoms Neurological: Reports: No Symptoms Psychiatric: Reports: No Symptoms - Patient Data Vitals - Most Recent: Last Vital Signs Temp 97.9 F 02/06/20 04:00 Pulse 81 02/05/20 09:49 Resp 19 02/06/20 07:00 BP 115/58 L 02/06/20 07:00 Pulse Ox 90 L 02/06/20 07:00 Weight - Most Recent: 90 kg I&O - Last 24 Hours: Intake & Output 02/05/20 02/06/20 02/06/20 22:59 06:59 14:59 Intake Total 590 900 Output Total 400 700 Balance 190 200 Lab Results Last 24 Hours: Laboratory Results - last 24 hr 02/04/20 02/05/20 02/05/20 Range/Units 12:10 06:00 11:27 WBC (4.0-11.0) K/uL RBC (4.30-5.90) M/uL Hgb (12.0-16.0) g/dL Hct (36.0-46.0) % MCV (80.0-98.0) fL MCH (27.0-32.0) pg MCHC (31.0-37.0) g/dL RDW Std Deviation (28.0-62.0) fl RDW Coeff of Rajeev (11.0-15.0) % Plt Count (150-400) K/uL MPV (7.40-12.00) fL Neut % (Auto) (48.0-80.0) % Lymph % (Auto) (16.0-40.0) % [place] % (Auto) (0.0-15.0) % Eos % (Auto) (0.0-7.0) % Baso % (Auto) (0.0-1.5) % Neut # (Auto) (1.4-5.7) K/uL Lymph # (Auto) (0.6-2.4) K/uL [place] # (Auto) (0.0-0.8) K/uL Eos # (Auto) (0.0-0.7) K/uL Baso # (Auto) (0.0-0.1) K/uL Nucleated RBC % /100WBC Nucleated RBCs # K/uL Sodium (136-145) mmol/L Potassium (3.5-5.1) mmol/L Chloride (98-107) mmol/L Carbon Dioxide (21.0-32.0) mmol/L BUN (7.0-18.0) mg/dL Creatinine (0.6-1.0) mg/dL Est Cr Clr Drug Dosing mL/min Estimated GFR (MDRD) ml/min Glucose (74-106) mg/dL POC Glucose 197 H 190 H (60-110) mg/dL Calcium (8.5-10.1) mg/dL Troponin I (0.000-0.056) ng/mL Blood Type B POSITIVE Antibody Screen NEGATIVE Crossmatch See Detail 02/05/20 02/05/20 02/05/20 Range/Units 13:04 16:20 18:15 WBC (4.0-11.0) K/uL RBC (4.30-5.90) M/uL Hgb (12.0-16.0) g/dL Hct (36.0-46.0) % MCV (80.0-98.0) fL MCH (27.0-32.0) pg MCHC (31.0-37.0) g/dL RDW Std Deviation (28.0-62.0) fl RDW Coeff of Rajeev (11.0-15.0) % Plt Count (150-400) K/uL MPV (7.40-12.00) fL Neut % (Auto) (48.0-80.0) % Lymph % (Auto) (16.0-40.0) % [place] % (Auto) (0.0-15.0) % Eos % (Auto) (0.0-7.0) % Baso % (Auto) (0.0-1.5) % Neut # (Auto) (1.4-5.7) K/uL Lymph # (Auto) (0.6-2.4) K/uL [place] # (Auto) (0.0-0.8) K/uL Eos # (Auto) (0.0-0.7) K/uL Baso # (Auto) (0.0-0.1) K/uL Nucleated RBC % /100WBC Nucleated RBCs # K/uL Sodium (136-145) mmol/L Potassium (3.5-5.1) mmol/L Chloride (98-107) mmol/L Carbon Dioxide (21.0-32.0) mmol/L BUN (7.0-18.0) mg/dL Creatinine (0.6-1.0) mg/dL Est Cr Clr Drug Dosing mL/min Estimated GFR (MDRD) ml/min Glucose (74-106) mg/dL POC Glucose 142 H (60-110) mg/dL Calcium (8.5-10.1) mg/dL Troponin I < 0.050 < 0.050 (0.000-0.056) ng/mL Blood Type Antibody Screen Crossmatch 02/05/20 02/06/20 02/06/20 Range/Units 19:14 06:33 06:33 WBC 11.51 H (4.0-11.0) K/uL RBC 4.38 (4.30-5.90) M/uL Hgb 8.0 L (12.0-16.0) g/dL Hct 30.4 L (36.0-46.0) % MCV 69.4 L (80.0-98.0) fL MCH 18.3 L (27.0-32.0) pg MCHC 26.3 L (31.0-37.0) g/dL RDW Std Deviation 54.2 (28.0-62.0) fl RDW Coeff of Rajeev 22 H (11.0-15.0) % Plt Count 255 (150-400) K/uL MPV 9.20 (7.40-12.00) fL Neut % (Auto) 72.1 (48.0-80.0) % Lymph % (Auto) 14.6 L (16.0-40.0) % [place] % (Auto) 12.5 (0.0-15.0) % Eos % (Auto) 0.6 (0.0-7.0) % Baso % (Auto) 0.2 (0.0-1.5) % Neut # (Auto) 8.3 H (1.4-5.7) K/uL Lymph # (Auto) 1.7 (0.6-2.4) K/uL [place] # (Auto) 1.4 H (0.0-0.8) K/uL Eos # (Auto) 0.1 (0.0-0.7) K/uL Baso # (Auto) 0.0 (0.0-0.1) K/uL Nucleated RBC % 1.1 /100WBC Nucleated RBCs # 0 K/uL Sodium 141 (136-145) mmol/L Potassium 5.0 (3.5-5.1) mmol/L Chloride 106 (98-107) mmol/L Carbon Dioxide 30.6 (21.0-32.0) mmol/L BUN 30 H (7.0-18.0) mg/dL Creatinine 1.7 H (0.6-1.0) mg/dL Est Cr Clr Drug Dosing 22.57 mL/min Estimated GFR (MDRD) 29.5 ml/min Glucose 145 H (74-106) mg/dL POC Glucose (60-110) mg/dL Calcium 8.2 L (8.5-10.1) mg/dL Troponin I < 0.050 (0.000-0.056) ng/mL Blood Type Antibody Screen Crossmatch 02/06/20 Range/Units 07:49 WBC (4.0-11.0) K/uL RBC (4.30-5.90) M/uL Hgb (12.0-16.0) g/dL Hct (36.0-46.0) % MCV (80.0-98.0) fL MCH (27.0-32.0) pg MCHC (31.0-37.0) g/dL RDW Std Deviation (28.0-62.0) fl RDW Coeff of Rajeev (11.0-15.0) % Plt Count (150-400) K/uL MPV (7.40-12.00) fL Neut % (Auto) (48.0-80.0) % Lymph % (Auto) (16.0-40.0) % [place] % (Auto) (0.0-15.0) % Eos % (Auto) (0.0-7.0) % Baso % (Auto) (0.0-1.5) % Neut # (Auto) (1.4-5.7) K/uL Lymph # (Auto) (0.6-2.4) K/uL [place] # (Auto) (0.0-0.8) K/uL Eos # (Auto) (0.0-0.7) K/uL Baso # (Auto) (0.0-0.1) K/uL Nucleated RBC % /100WBC Nucleated RBCs # K/uL Sodium (136-145) mmol/L Potassium (3.5-5.1) mmol/L Chloride (98-107) mmol/L Carbon Dioxide (21.0-32.0) mmol/L BUN (7.0-18.0) mg/dL Creatinine (0.6-1.0) mg/dL Est Cr Clr Drug Dosing mL/min Estimated GFR (MDRD) ml/min Glucose (74-106) mg/dL POC Glucose 137 H (60-110) mg/dL Calcium (8.5-10.1) mg/dL Troponin I (0.000-0.056) ng/mL Blood Type Antibody Screen Crossmatch Saurabh Results Last 24 Hours: Microbiology 02/04/20 08:22 Coronavirus RNA (PCR) - Final Nasopharyngeal Swab Med Orders - Current: Current Medications Acetaminophen (Tylenol) 650 mg PO Q4H PRN PRN Reason: Pain (Mild 1-3)/fever Last Admin: 02/06/20 02:14 Dose: 650 mg Albuterol/Ipratropium (Duoneb 3.0-0.5 Mg/3 Ml) 3 ml NEB Q4HRRT VI Last Admin: 02/06/20 05:59 Dose: 3 ml Pantoprazole Sodium 40 mg/ (Sodium Chloride) 10 mls @ 300 mls/hr IV Q12H [facility] Last Admin: 02/05/20 23:36 Dose: 300 mls/hr Levofloxacin/Dextrose 750 mg/ (Premix) 150 mls @ 100 mls/hr IV Q48H [facility] Insulin Aspart (Novolog) 0 unit SUBCUT TIDAC [facility]; Protocol Last Admin: 02/06/20 07:59 Dose: Not Given Levothyroxine Sodium (Levothyroxine) 150 mcg PO ACBREAKFAST [facility] Last Admin: 02/06/20 07:58 Dose: 150 mcg Levothyroxine Sodium (Levothyroxine) 25 mcg PO ACBREAKFAST [facility] Last Admin: 02/06/20 07:59 Dose: 25 mcg Metoclopramide HCl (Reglan) 10 mg IVPUSH Q6H PRN PRN Reason: Nausea Last Admin: 02/05/20 11:40 Dose: 10 mg Metoprolol Succinate (Toprol Xl) 25 mg PO DAILY [facility] Last Admin: 02/05/20 09:49 Dose: Not Given Miscellaneous Information (Remove Patch) 1 ea TRDERM ONETIME ONE Stop: 02/06/20 14:06 Nortriptyline HCl (Nortriptyline) 20 mg PO BEDTIME [facility] Last Admin: 02/05/20 20:48 Dose: 20 mg Ondansetron HCl (Zofran) 4 mg IVPUSH Q4H PRN PRN Reason: Nausea Last Admin: 02/05/20 09:03 Dose: 4 mg Discontinued Medications Albuterol/Ipratropium (Duoneb 3.0-0.5 Mg/3 Ml) 3 ml NEB ONETIME ONE Stop: 02/04/20 08:13 Last Admin: 02/04/20 08:23 Dose: 3 ml Albuterol/Ipratropium (Duoneb 3.0-0.5 Mg/3 Ml) Confirm Administered Dose 6 ml .ROUTE .STK-MED ONE Stop: 02/04/20 08:12 Last Admin: 02/04/20 08:35 Dose: Not Given Al Hydroxide/Mg Hydroxide 15 (ml/ Lidocaine HCl 5 ml) 0 ml PO ONETIME ONE Stop: 02/05/20 12:27 Last Admin: 02/05/20 13:12 Dose: 1 each Dicyclomine HCl (Bentyl) 10 mg PO DAILY [facility] Last Admin: 02/05/20 10:37 Dose: Not Given Furosemide (Lasix) 40 mg IVPUSH NOW ONE Stop: 02/04/20 09:37 Last Admin: 02/04/20 10:47 Dose: 40 mg Furosemide (Lasix) 40 mg IVPUSH BID VI Last Admin: 02/04/20 20:39 Dose: 40 mg Furosemide (Lasix) 20 mg IVPUSH NOW ONE Stop: 02/05/20 20:32 Last Admin: 02/06/20 03:50 Dose: Not Given Magnesium Sulfate 2 gm/ Premix 50 mls @ 50 mls/hr IV ONETIME ONE Stop: 02/04/20 09:11 Last Admin: 02/04/20 08:35 Dose: Not Given Magnesium Sulfate 1 gm/ Sodium (Chloride) 52 mls @ 104 mls/hr IV ONETIME ONE Stop: 02/04/20 08:59 Last Admin: 02/04/20 08:40 Dose: 104 mls/hr Levofloxacin/Dextrose 750 mg/ (Premix) 150 mls @ 100 mls/hr IV Q24H [facility] Last Infusion: 02/04/20 11:10 Dose: 50 mls/hr Iron Sucrose 200 mg/ Sodium (Chloride) 110 mls @ 400 mls/hr IV ONETIME ONE Stop: 02/04/20 12:40 Last Admin: 02/04/20 16:41 Dose: Not Given Iron Sucrose 200 mg/ Sodium (Chloride) 110 mls @ 220 mls/hr IV ONETIME ONE Stop: 02/04/20 15:19 Last Admin: 02/04/20 16:39 Dose: 220 mls/hr Sodium Chloride (Normal Saline) 250 mls @ 500 mls/hr IV ASDIRECTED [facility] Last Admin: 02/05/20 06:39 Dose: 500 mls/hr Sodium Chloride (Normal Saline) 250 mls @ 500 mls/hr IV ASDIRECTED [facility] Iron Sucrose 200 mg/ Sodium (Chloride) 110 mls @ 220 mls/hr IV ONETIME ONE Stop: 02/05/20 15:29 Last Admin: 02/05/20 15:57 Dose: 220 mls/hr Lidocaine (Lidoderm 5%) 700 mg TOP ONETIME ONE Stop: 02/06/20 02:06 Last Admin: 02/06/20 02:14 Dose: 700 mg Methylprednisolone Sodium Succinate (Solu-Medrol) 125 mg IVPUSH ONETIME ONE Stop: 02/04/20 08:14 Last Admin: 02/04/20 08:40 Dose: 125 mg Naproxen (Naproxen Sodium) 440 mg PO ONETIME VI Stop: 02/04/20 23:59 Ondansetron HCl (Zofran) Confirm Administered Dose 4 mg .ROUTE .STK-MED ONE Stop: 02/04/20 11:31 Last Admin: 02/04/20 11:36 Dose: Not Given Ondansetron HCl (Zofran) 4 mg IVPUSH ONETIME ONE Stop: 02/04/20 11:37 Last Admin: 02/04/20 11:37 Dose: 4 mg Wound Care/Dressing Products (Duoderm Cgf) Confirm Administered Dose 1 each .ROUTE .STK-MED ONE Stop: 02/05/20 20:48 Last Admin: 02/05/20 20:59 Dose: 1 each - Exam Quality Assessment: Supplemental Oxygen (on CPAP for sleep, HF NC), DVT Prophylaxis General: Alert, Oriented Neck: Supple Lungs: Decreased Breath Sounds, Crackles (faint to bibasilar) Cardiovascular: Regular Rate, Regular Rhythm GI/Abdominal Exam: Normal Bowel Sounds, Soft, Non-Tender Back Exam: Normal Inspection, Full Range of Motion Extremities: Normal Inspection, Normal Range of Motion, Non-Tender, No Pedal Edema Neurological: No New Focal Deficit Psy/Mental Status: Alert, Normal Affect, Normal Mood Sepsis Event Note - Evaluation Sepsis Screening Result: No Definite Risk - Focused Exam Vital Signs: Vital Signs Temp Resp BP Pulse Ox Pulse Ox 02/06/20 07:00 19 115/58 L 90 L 02/06/20 06:00 18 111/52 L 95 02/06/20 05:00 19 102/65 93 L 02/06/20 04:21 96 02/06/20 04:00 97.9 F 20 99/53 L 91 L 02/06/20 03:00 19 104/53 L 96 02/06/20 02:00 19 110/51 L 96 02/06/20 01:00 98 F 16 118/57 L 92 L 02/06/20 00:00 17 112/53 L 90 L 02/05/20 23:00 19 136/58 L 95 02/05/20 22:00 19 128/62 96 02/05/20 21:00 98.3 F 20 117/57 L 95 96 Date Exam was Performed: 02/06/20 Time Exam was Performed: 11:11 - Problem List & Annotations (1) Acute and chronic respiratory failure with hypoxia SNOMED Code(s): 88574807, 047663770 Code(s): J96.21 - ACUTE AND CHRONIC RESPIRATORY FAILURE WITH HYPOXIA Status : Acute Current Visit: Yes (2) CHF (congestive heart failure) SNOMED Code(s): 02026226 Code(s): I50.9 - HEART FAILURE, UNSPECIFIED Status: Acute Current Visit: Yes Qualifiers: Heart failure type: diastolic Heart failure chronicity: acute on chronic Qualified Code(s): I50.33 - Acute on chronic diastolic (congestive) heart failure (3) COPD exacerbation SNOMED Code(s): 914108655 Code(s): J44.1 - CHRONIC OBSTRUCTIVE PULMONARY DISEASE W (ACUTE) EXACERBATION Status: Acute Current Visit: Yes (4) Anemia SNOMED Code(s): 828827103 Code(s): D64.9 - ANEMIA, UNSPECIFIED Status: Acute Current Visit: Yes (5) HTN (hypertension) SNOMED Code(s): 26752062 Code(s): I10 - ESSENTIAL (PRIMARY) HYPERTENSION Status: Chronic Current Visit: Yes (6) Hypothyroidism SNOMED Code(s): 99022439 Code(s): E03.9 - HYPOTHYROIDISM, UNSPECIFIED Status: Chronic Current Visit: Yes (7) Diaphragm paralysis Status: Chronic Current Visit: Yes - Problem List Review Problem List Initiated/Reviewed/Updated: Yes - My Orders Last 24 Hours: My Active Orders 02/05/20 07:30 Levothyroxine 150 mcg PO ACBREAKFAST 02/05/20 08:07 Insulin Aspart [NovoLOG] See Protocol SUBCUT TIDAC 02/05/20 08:31 Transfuse PRBC [Transfuse Red Blood Cells] [COMM] Urgent 02/05/20 09:00 Metoprolol Succinate [Toprol XL] 25 mg PO DAILY 02/05/20 11:23 Metoclopramide [Reglan] 10 mg IVPUSH Q6H PRN 02/06/20 10:45 Levofloxacin/Dextrose 5%-Water [Levaquin in D5W 750 MG/150 ML] 750 mg Premix Bag 1 bag IV Q48H 02/07/20 05:11 BMP [BASIC METABOLIC PANEL,BMP] [CHEM] AM CBC WITH AUTO DIFF [HEME] AM 02/08/20 05:11 BMP [BASIC METABOLIC PANEL,BMP] [CHEM] AM CBC WITH AUTO DIFF [HEME] AM - Plan Plan:: This 74 year old female admitted with acute on chronic hypoxic respiratory failure, possible CHF exacerbation and URI 1. Acute on chronic hypoxic respiratory failure - Continue HF NC, place on CPAP at night per home pressure with oxygen - Continue oxygen support, wean as possible - Hx of paralyzed diaphragm, R sided. - Continue Levaquin 750 Q48hr for possible PNA, suspicion low. - CT without contrast of chest today 2. CHF, - ECHO shows hyperdynamic left ventricular systolic function EF 65-70%. - Hx diastolic dysfunction, likely not exacerbation. related to anemia potentially - Strict I/O - Daily weights - Low Na diet 3. Anemia, symptomatic - Hgb 8.0 today, will transfuse 1 unit pRBC today and monitor hgb - Denies overt bleeding. Hx GERD and GI bleed in 2014 - Iron studies reveal significant iron deficiency anemia, will give another Iron 200 mg IV today - Protonix IV 40 BID - Hemoccult stool - Will need outpatient follow up for endoscopy. 4. RACHNA - holding nephrotixic medications including NSAIDs - No further Lasix. - Monitor daily 5. Dm Type 2: - Novolog SSI, not eating well. Hold long acting for now to limit hypoglycemia. - Monitor closely. 6. HTN: - Holding anti-hypertensives, Monitor for now. - Hypotension improvinf 7. Chronic back pain: - Worsening due to lack of NSAIDs - Lidocaine patch helps, will continue. Place for 12 hours then remove for 12 hours rotation. VTE prophylaxis: SCDs for now GI prophylaxis: Protonix Code Status: Full code Dispo: 2-3 days pending improvement
[2020-02-06] MEDS ORDERED: Bisacodyl 10 MG Supp RECTAL PRN (09:14)
[2020-02-06] MEDS: Metoprolol Succinate 25 MG Tab.ER PO SCH (09:35)
[2020-02-06] MEDS: Levofloxacin/Dextrose 5%-Water 750 MG in Premix Bag 1 BAG IV SCH (10:26)
--- NOTE | 2020-02-06 11:37 | CT ---
CT chest Technique: Multiple axial sections were obtained from above the lung apices inferiorly through the lung bases. Intravenous contrast not utilized. Findings: Elevated right hemidiaphragm is seen with liver located beneath the hemidiaphragm. Visualized upper abdominal structures shows no discrete acute finding. Small bilateral pleural effusions are noted. Coronary artery calcification is seen. Several mediastinal lymph nodes are noted with largest measuring 1.9 cm which is slightly increased in size which most likely represents change from old inflammatory process. Mild atelectasis is seen within both lung bases. Difficult to exclude pneumonia within both lung bases. Upper lungs are clear. Bone window settings were reviewed. Scattered degenerative change is noted within the spine. Moderate to severe compression deformity is noted within the L1. This is most likely old. No acute osseous finding is otherwise seen. Impression: 1. Elevated right hemidiaphragm which shows liver beneath the diaphragm. 2. Small bilateral pleural effusions. 3. Increased density within both lung bases compatible with atelectasis. Difficult to completely exclude pneumonia within both lung bases if patient has infectious symptoms. 4. Other findings as noted above believed to be incidental and nonacute. Diagnostic code #3 This report was dictated in MDT
[2020-02-06] MEDS: Pantoprazole 40 MG in Sodium Chloride 0.9% 10 ML IV SCH ×2 (12:23→23:36)
[2020-02-06] MEDS: Nortriptyline 10 MG Cap PO SCH (20:57)
[2020-02-07] MEDS: Acetaminophen 325 MG Tab PO PRN (01:15)
[2020-02-07] MEDS: Albuterol/Ipratropium 3.0-0.5 MG/3 ML Neb Soln NEB SCH ×3 (01:16→09:41)
[2020-02-07] MEDS: Lidocaine 5% 700 MG Patch TOP SCH (01:16)
[2020-02-07 06:22] LABS: CARBON DIOXIDE,CO2 31.3 mmol/L (21.0-32.0); POTASSIUM,K 5.4 mmol/L (3.5-5.1)
[2020-02-07] MEDS: Insulin Aspart 100 Units/ML 3 ML Pen SUBCUT SCH ×3 (06:31→18:05)
[2020-02-07] MEDS: Levothyroxine 150 MCG Tab PO SCH (06:50)
[2020-02-07] MEDS: Levothyroxine 25 MCG Tab PO SCH (06:50)
--- NOTE | 2020-02-07 08:38 | PN ---
TH[facility] Physician - Brief Progress [id number]/20/2020 08:36[facility] [place], [place] - RAFFY (ANGELICA) - RAFFY RAOKEVIN ESTRADAQuangDate of Service 02/07/2020 08:36HPI/Events of Note eICU Progress [id number] admitted for hypercapnic and hypoxemic respiratory failure, and microcy tic anemia. History obtained primarily from review of EMR.Camera exam: Laying in bed. Vitals monitor reviewed.Vitals: reviewedLabs: reviewedRadiology: reviewedMeds: reviewedeICU Impression and Recommend ations:Hypoxemic and hypercapnic respiratory failure, suspect at least in part secondary to obesity h ypoventilation syndrome given elevated BMI in the setting of awake PCO2 >45mmHg. In setting of OHS ca nnot rule out element of Group 3 pulmonary hypertension (for which management would include diuresis - difficult in the setting of RACHNA). There is some queston of underlying pneumonia with leukocytosis a nd consolidation on CXR Continue oxygen supplementationAgree with work up as previously recommendedWi ll await read of TTE performed 02/03I believe it reasonable to continue levofloxacin, especially in th e setting of leukocytosis. In setting of RACHNA procalcitonin is of limited utilityAcute kidney injury, improvingStrict I/Oavoid nephrotoxic agentsMicrocytic anemia attributed in part to iron deficiencySus pect patient has had adequate iron supplementation received so far, especially with blood transfusion . Suggest continued monitoring of patient for signs of bleeding, as well as continued monitoring of l absSuspect work up can be further deferred to an outpatient if hemoglobin remains stableDVT and GI pr ophylaxis as appropriate.We are available to assist in further clarification, or implementation of an y of the above recommendations if desired by primary service.Thank you for allowing us to participate in the care of this patient.The above note transcribed with the assistance of dictation software. Pl ease excuse any errors.Interventions Major-Respiratory failure - evaluation and managementElectronica lly Signed by: SARA CASTRO) on 02/07/2020 08:37
--- NOTE | 2020-02-07 09:03 | PCM.PN ---
- General Info Date of Service: 02/07/20 Admission Dx/Problem (Free Text): Admission Diagnosis/Problem Admission Diagnosis/Problem Acute respiratory failure with hypoxia Subjective Update: Feeling a little improved, continues to need HFNC. No chest pain. No black or bloody stools. reports some dizziness and fullness in her ears Functional Status: Reports: Pain Controlled, Tolerating Diet, Ambulating, Urinating - Review of Systems General: Reports: Fatigue, Malaise HEENT: Reports: Sinus Congestion (at baseline), Other (ear fullness bilaterally , ). Denies: Ear Pain, Sore Throat, Visual Changes Pulmonary: Reports: Shortness of Breath. Denies: Cough, Hemoptysis, Wheezing Cardiovascular: Reports: Dyspnea on Exertion. Denies: Chest Pain, Palpitations Gastrointestinal: Denies: Abdominal Pain, Nausea, Vomiting Genitourinary: Reports: No Symptoms. Denies: Dysuria, Frequency, Burning Musculoskeletal: Reports: Back Pain (chronic) Skin: Reports: No Symptoms Neurological: Reports: No Symptoms Psychiatric: Reports: No Symptoms - Patient Data Vitals - Most Recent: Last Vital Signs Temp 97.4 F 02/07/20 08:00 Pulse 94 02/07/20 08:00 Resp 12 02/07/20 08:00 BP 122/55 L 02/07/20 08:00 Pulse Ox 90 L 02/07/20 08:00 Weight - Most Recent: 90.4 kg I&O - Last 24 Hours: Intake & Output 02/06/20 02/07/20 02/07/20 22:59 06:59 14:59 Intake Total 990 620 Output Total 500 700 Balance 490 -80 Lab Results Last 24 Hours: Laboratory Results - last 24 hr 02/04/20 02/06/20 02/06/20 Range/Units 12:10 12:05 17:46 WBC (4.0-11.0) K/uL RBC (4.30-5.90) M/uL Hgb (12.0-16.0) g/dL Hct (36.0-46.0) % MCV (80.0-98.0) fL MCH (27.0-32.0) pg MCHC (31.0-37.0) g/dL RDW Std Deviation (28.0-62.0) fl RDW Coeff of Rajeev (11.0-15.0) % Plt Count (150-400) K/uL MPV (7.40-12.00) fL Neut % (Auto) (48.0-80.0) % Lymph % (Auto) (16.0-40.0) % [place] % (Auto) (0.0-15.0) % Eos % (Auto) (0.0-7.0) % Baso % (Auto) (0.0-1.5) % Neut # (Auto) (1.4-5.7) K/uL Lymph # (Auto) (0.6-2.4) K/uL [place] # (Auto) (0.0-0.8) K/uL Eos # (Auto) (0.0-0.7) K/uL Baso # (Auto) (0.0-0.1) K/uL Nucleated RBC % /100WBC Nucleated RBCs # K/uL Sodium (136-145) mmol/L Potassium (3.5-5.1) mmol/L Chloride (98-107) mmol/L Carbon Dioxide (21.0-32.0) mmol/L BUN (7.0-18.0) mg/dL Creatinine (0.6-1.0) mg/dL Est Cr Clr Drug Dosing mL/min Estimated GFR (MDRD) ml/min Glucose (74-106) mg/dL POC Glucose 161 H 182 H (60-110) mg/dL Calcium (8.5-10.1) mg/dL Blood Type B POSITIVE Antibody Screen NEGATIVE Crossmatch See Detail 02/07/20 02/07/20 02/07/20 Range/Units 05:58 06:00 06:00 WBC 11.14 H (4.0-11.0) K/uL RBC 4.91 (4.30-5.90) M/uL Hgb 9.5 L (12.0-16.0) g/dL Hct 34.7 L (36.0-46.0) % MCV 70.7 L (80.0-98.0) fL MCH 19.3 L (27.0-32.0) pg MCHC 27.4 L (31.0-37.0) g/dL RDW Std Deviation 57.4 (28.0-62.0) fl RDW Coeff of Rajeev 23 H (11.0-15.0) % Plt Count 236 (150-400) K/uL MPV 9.50 (7.40-12.00) fL Neut % (Auto) 70.4 (48.0-80.0) % Lymph % (Auto) 16.9 (16.0-40.0) % [place] % (Auto) 11.0 (0.0-15.0) % Eos % (Auto) 1.6 (0.0-7.0) % Baso % (Auto) 0.1 (0.0-1.5) % Neut # (Auto) 7.9 H (1.4-5.7) K/uL Lymph # (Auto) 1.9 (0.6-2.4) K/uL [place] # (Auto) 1.2 H (0.0-0.8) K/uL Eos # (Auto) 0.2 (0.0-0.7) K/uL Baso # (Auto) 0.0 (0.0-0.1) K/uL Nucleated RBC % 0.7 /100WBC Nucleated RBCs # 0 K/uL Sodium 140 (136-145) mmol/L Potassium 5.4 H (3.5-5.1) mmol/L Chloride 102 (98-107) mmol/L Carbon Dioxide 31.3 (21.0-32.0) mmol/L BUN 25 H (7.0-18.0) mg/dL Creatinine 1.3 H (0.6-1.0) mg/dL Est Cr Clr Drug Dosing 29.52 mL/min Estimated GFR (MDRD) 40.3 ml/min Glucose 132 H (74-106) mg/dL POC Glucose 117 H (60-110) mg/dL Calcium 8.8 (8.5-10.1) mg/dL Blood Type Antibody Screen Crossmatch Med Orders - Current: Current Medications Acetaminophen (Tylenol) 650 mg PO Q4H PRN PRN Reason: Pain (Mild 1-3)/fever Last Admin: 02/07/20 01:15 Dose: 650 mg Albuterol/Ipratropium (Duoneb 3.0-0.5 Mg/3 Ml) 3 ml NEB Q4HRRT VI Last Admin: 02/07/20 06:26 Dose: 3 ml Bisacodyl (Dulcolax) 10 mg RECTAL DAILY PRN PRN Reason: Constipation Last Admin: 02/06/20 09:35 Dose: 10 mg Pantoprazole Sodium 40 mg/ (Sodium Chloride) 10 mls @ 300 mls/hr IV Q12H [facility] Last Admin: 02/06/20 23:36 Dose: 300 mls/hr Levofloxacin/Dextrose 750 mg/ (Premix) 150 mls @ 100 mls/hr IV Q48H [facility] Last Admin: 02/06/20 10:26 Dose: 100 mls/hr Insulin Aspart (Novolog) 0 unit SUBCUT TIDAC [facility]; Protocol Last Admin: 02/07/20 06:31 Dose: Not Given Levothyroxine Sodium (Levothyroxine) 150 mcg PO ACBREAKFAST [facility] Last Admin: 02/07/20 06:50 Dose: 150 mcg Levothyroxine Sodium (Levothyroxine) 25 mcg PO ACBREAKFAST [facility] Last Admin: 02/07/20 06:50 Dose: 25 mcg Lidocaine (Lidoderm 5%) 700 mg TOP Q24H [facility] Last Admin: 02/07/20 01:16 Dose: 700 mg Metoclopramide HCl (Reglan) 10 mg IVPUSH Q6H PRN PRN Reason: Nausea Last Admin: 02/05/20 11:40 Dose: 10 mg Metoprolol Succinate (Toprol Xl) 25 mg PO DAILY [facility] Last Admin: 02/06/20 09:35 Dose: 25 mg Nortriptyline HCl (Nortriptyline) 20 mg PO BEDTIME [facility] Last Admin: 02/06/20 20:57 Dose: 20 mg Ondansetron HCl (Zofran) 4 mg IVPUSH Q4H PRN PRN Reason: Nausea Last Admin: 02/05/20 09:03 Dose: 4 mg Discontinued Medications Albuterol/Ipratropium (Duoneb 3.0-0.5 Mg/3 Ml) 3 ml NEB ONETIME ONE Stop: 02/04/20 08:13 Last Admin: 02/04/20 08:23 Dose: 3 ml Albuterol/Ipratropium (Duoneb 3.0-0.5 Mg/3 Ml) Confirm Administered Dose 6 ml .ROUTE .STK-MED ONE Stop: 02/04/20 08:12 Last Admin: 02/04/20 08:35 Dose: Not Given Al Hydroxide/Mg Hydroxide 15 (ml/ Lidocaine HCl 5 ml) 0 ml PO ONETIME ONE Stop: 02/05/20 12:27 Last Admin: 02/05/20 13:12 Dose: 1 each Dicyclomine HCl (Bentyl) 10 mg PO DAILY [facility] Last Admin: 02/05/20 10:37 Dose: Not Given Furosemide (Lasix) 40 mg IVPUSH NOW ONE Stop: 02/04/20 09:37 Last Admin: 02/04/20 10:47 Dose: 40 mg Furosemide (Lasix) 40 mg IVPUSH BID [facility] Last Admin: 02/04/20 20:39 Dose: 40 mg Furosemide (Lasix) 20 mg IVPUSH NOW ONE Stop: 02/05/20 20:32 Last Admin: 02/06/20 03:50 Dose: Not Given Magnesium Sulfate 2 gm/ Premix 50 mls @ 50 mls/hr IV ONETIME ONE Stop: 02/04/20 09:11 Last Admin: 02/04/20 08:35 Dose: Not Given Magnesium Sulfate 1 gm/ Sodium (Chloride) 52 mls @ 104 mls/hr IV ONETIME ONE Stop: 02/04/20 08:59 Last Admin: 02/04/20 08:40 Dose: 104 mls/hr Levofloxacin/Dextrose 750 mg/ (Premix) 150 mls @ 100 mls/hr IV Q24H [facility] Last Infusion: 02/04/20 11:10 Dose: 50 mls/hr Iron Sucrose 200 mg/ Sodium (Chloride) 110 mls @ 400 mls/hr IV ONETIME ONE Stop: 02/04/20 12:40 Last Admin: 02/04/20 16:41 Dose: Not Given Iron Sucrose 200 mg/ Sodium (Chloride) 110 mls @ 220 mls/hr IV ONETIME ONE Stop: 02/04/20 15:19 Last Admin: 02/04/20 16:39 Dose: 220 mls/hr Sodium Chloride (Normal Saline) 250 mls @ 500 mls/hr IV ASDIRECTED [facility] Last Admin: 02/05/20 06:39 Dose: 500 mls/hr Sodium Chloride (Normal Saline) 250 mls @ 500 mls/hr IV ASDIRECTED [facility] Iron Sucrose 200 mg/ Sodium (Chloride) 110 mls @ 220 mls/hr IV ONETIME ONE Stop: 02/05/20 15:29 Last Admin: 02/05/20 15:57 Dose: 220 mls/hr Lidocaine (Lidoderm 5%) 700 mg TOP ONETIME ONE Stop: 02/06/20 02:06 Last Admin: 02/06/20 02:14 Dose: 700 mg Methylprednisolone Sodium Succinate (Solu-Medrol) 125 mg IVPUSH ONETIME ONE Stop: 02/04/20 08:14 Last Admin: 02/04/20 08:40 Dose: 125 mg Miscellaneous Information (Remove Patch) 1 ea TRDERM ONETIME ONE Stop: 02/06/20 14:06 Last Admin: 02/06/20 14:00 Dose: 1 ea Naproxen (Naproxen Sodium) 440 mg PO ONETIME VI Stop: 02/04/20 23:59 Ondansetron HCl (Zofran) Confirm Administered Dose 4 mg .ROUTE .STK-MED ONE Stop: 02/04/20 11:31 Last Admin: 02/04/20 11:36 Dose: Not Given Ondansetron HCl (Zofran) 4 mg IVPUSH ONETIME ONE Stop: 02/04/20 11:37 Last Admin: 02/04/20 11:37 Dose: 4 mg Wound Care/Dressing Products (Duoderm Cgf) Confirm Administered Dose 1 each .ROUTE .STK-MED ONE Stop: 02/05/20 20:48 Last Admin: 02/05/20 20:59 Dose: 1 each - Exam General: Alert, Oriented, Cooperative, No Acute Distress Lungs: Decreased Breath Sounds, Crackles (fine bibasilar). No: Normal Respiratory Effort (dyspnea with speech and exertion) Cardiovascular: Regular Rate, Regular Rhythm, No Murmurs GI/Abdominal Exam: Normal Bowel Sounds, Soft, Non-Tender, Other (had BM yesterdaym not black or bloody) Extremities: Normal Inspection, Normal Range of Motion, Non-Tender, No Pedal Edema Neurological: No New Focal Deficit Psy/Mental Status: Alert, Normal Affect, Normal Mood Sepsis Event Note - Evaluation Sepsis Screening Result: No Definite Risk - Focused Exam Vital Signs: Vital Signs Temp Pulse Resp BP Pulse Ox Pulse Ox 02/07/20 08:00 97.4 F 94 12 122/55 L 90 L 02/07/20 07:30 97.1 F 95 13 131/56 L 90 L 02/07/20 07:00 97.9 F 19 132/64 88 L 02/07/20 06:00 19 155/74 H 89 L 92 L 02/07/20 05:00 97.7 F 16 122/62 90 L 02/07/20 04:00 97.7 F 17 139/68 86 L 02/07/20 03:00 98.2 F 16 118/56 L 98 02/07/20 02:00 98.4 F 16 117/50 L 92 L 02/07/20 01:00 98.4 F 18 124/54 L 86 L 02/07/20 00:00 16 113/50 L 90 L 02/06/20 23:00 97.7 F 16 110/53 L 93 L Date Exam was Performed: 02/07/20 Time Exam was Performed: 13:15 - Problem List & Annotations (1) Acute and chronic respiratory failure with hypoxia SNOMED Code(s): 39771041, 557977706 Code(s): J96.21 - ACUTE AND CHRONIC RESPIRATORY FAILURE WITH HYPOXIA Status : Acute Current Visit: Yes (2) CHF (congestive heart failure) SNOMED Code(s): 71982656 Code(s): I50.9 - HEART FAILURE, UNSPECIFIED Status: Acute Current Visit: Yes Qualifiers: Heart failure type: diastolic Heart failure chronicity: acute on chronic Qualified Code(s): I50.33 - Acute on chronic diastolic (congestive) heart failure (3) COPD exacerbation SNOMED Code(s): 395218469 Code(s): J44.1 - CHRONIC OBSTRUCTIVE PULMONARY DISEASE W (ACUTE) EXACERBATION Status: Acute Current Visit: Yes (4) Anemia SNOMED Code(s): 836185317 Code(s): D64.9 - ANEMIA, UNSPECIFIED Status: Acute Current Visit: Yes (5) HTN (hypertension) SNOMED Code(s): 54309757 Code(s): I10 - ESSENTIAL (PRIMARY) HYPERTENSION Status: Chronic Current Visit: Yes (6) Hypothyroidism SNOMED Code(s): 03772134 Code(s): E03.9 - HYPOTHYROIDISM, UNSPECIFIED Status: Chronic Current Visit: Yes (7) Diaphragm paralysis Status: Chronic Current Visit: Yes - Problem List Review Problem List Initiated/Reviewed/Updated: Yes - My Orders Last 24 Hours: My Active Orders 02/06/20 09:14 bisacodyL [Dulcolax] 10 mg RECTAL DAILY PRN 02/06/20 09:39 Transfuse PRBC [Transfuse Red Blood Cells] [COMM] Urgent 02/06/20 10:45 Levofloxacin/Dextrose 5%-Water [Levaquin in D5W 750 MG/150 ML] 750 mg Premix Bag 1 bag IV Q48H 02/07/20 02:00 Lidocaine 5% [Lidoderm 5%] 700 mg TOP Q24H 02/07/20 08:47 Consult to Physical Therapy [PT Evaluation and Treatment] [CONS] Routine 02/08/20 05:11 BMP [BASIC METABOLIC PANEL,BMP] [CHEM] AM CBC WITH AUTO DIFF [HEME] AM - Plan Plan:: This 74 year old female admitted with acute on chronic hypoxic respiratory failure, possible CHF exacerbation and URI 1. Acute on chronic hypoxic respiratory failure - Continue HF NC, place on CPAP at night with oxygen, pressure 13 at home - Continue oxygen support, wean as possible - Hx of paralyzed diaphragm, R sided. - Continue Levaquin 750 Q48hr for possible PNA, suspicion low. - CT without contrast of chest shows atelectasis in left lung base and small pleural effusions - Discussed case at length with Jonna Mohan NP pulmonology at [facility], she is very familiar with Catina case. Dr Bah not available. She recommended stopping Duoneb, continuing with albuterol nebs, respiratory panel, IS, flutter valve and getting her up and moving. She also recommended doppler of legs to rule out clot due to dyspnea and RACHNA unable to obtain CTA. She also recommended trial Solumedrol for a couple days and monitor. She felt this is likely a viral illness and with her compromised lung state already she will take some time to improve. HFNC for up to 10 days is possible. Continue CPAP at night, her home setting is pressure of 13 and oxygen as well, which to keep sats 90s. She also discussed with office automation technician carton maker, who agreed with that and reviewed CT, he felt getting patient up and moving to help atelectasis and IS use was imperative. 2. CHF, - ECHO shows hyperdynamic left ventricular systolic function EF 65-70%. - Hx diastolic dysfunction, likely not exacerbation. related to anemia potentially - Strict I/O - Daily weights - Low Na diet - Give Lasxi 20 mg IV today monitor. 3. Anemia, symptomatic - Hgb 9.5 today monitor. - Denies overt bleeding. Hx GERD and GI bleed in 2015 - Protonix IV 40 BID - Hemoccult stool pending - Will need outpatient follow up for endoscopy. 4. RACHNA, improving - holding nephrotixic medications including NSAIDs - No further Lasix. - Monitor daily 5. Dm Type 2: - Novolog SSI, not eating well. Hold long acting for now to limit hypoglycemia. - Monitor closely. 6. HTN: - Holding anti-hypertensives, Monitor for now. - Hypotension improving 7. Chronic back pain: - Worsening due to lack of NSAIDs - Lidocaine patch helps, will continue. Place for 12 hours then remove for 12 hours rotation. VTE prophylaxis: SCDs for now GI prophylaxis: Protonix Code Status: Full code Dispo: 2-3 days pending improvement
[2020-02-07] MEDS: Metoprolol Succinate 25 MG Tab.ER PO SCH (09:08)
[2020-02-07] MEDS ORDERED: Furosemide 20 MG/2 ML VIAL IVPUSH ONE (10:05)
[2020-02-07] MEDS: Pantoprazole 40 MG in Sodium Chloride 0.9% 10 ML IV SCH ×2 (11:20→22:34)
[2020-02-07] MEDS ORDERED: Albuterol 0.083% 2.5 MG/3 ML Neb Soln NEB SCH (12:00)
[2020-02-07] MEDS: methylPREDNISolone Sodium Succinate 40 MG/1 ML SDV IV SCH (12:27)
--- NOTE | 2020-02-07 13:20 | US ---
Bilateral lower extremity deep venous ultrasound: Duplex and color Doppler evaluation was obtained of the right and left common femoral, superficial femoral, popliteal, posterior tibial and peroneal veins. Normal Doppler blood flow and compression is seen. Impression: 1. No evidence of deep venous thrombosis is seen within either the right or left lower extremities. Diagnostic code #1 This report was dictated in MDT
[2020-02-07] MEDS: Albuterol 0.083% 2.5 MG/3 ML Neb Soln NEB SCH ×3 (14:36→21:32)
--- NOTE | 2020-02-07 16:55 | ECHO ---
The echocardiogram report can be seen in this patient's EMR (Electronic Medical Record) in the REPORTS section. The echocardiogram report has been scanned into PACS and can also be seen there. ARTURO
[2020-02-07] MEDS: Nortriptyline 10 MG Cap PO SCH (20:59)
[2020-02-08] MEDS: Melatonin 3 MG Tab PO PRN ×2 (00:59→23:15)
[2020-02-08] MEDS: Lidocaine 5% 700 MG Patch TOP SCH (01:00)
[2020-02-08] MEDS: Albuterol 0.083% 2.5 MG/3 ML Neb Soln NEB SCH ×6 (01:00→21:36)
[2020-02-08] MEDS: Levothyroxine 25 MCG Tab PO SCH (06:33)
[2020-02-08] MEDS: Levothyroxine 150 MCG Tab PO SCH (06:34)
[2020-02-08 06:41] LABS: CARBON DIOXIDE,CO2 36.8 mmol/L (21.0-32.0); POTASSIUM,K 5.3 mmol/L (3.5-5.1)
--- NOTE | 2020-02-08 07:40 | PN ---
THC Physician - Brief Progress [id number]/21/2020 06:42[facility] Jojo veras [place] - RAFFY (ANGELICA) - KEVIN DUARTEDate of Service 02/08/2020 06:42HPI/Events of Note Glucose high- increase ssi dose - may need longer actingD/w RNInterventions Major-Hyperglycem ia - active titration of insulin therapy 06 :43
[2020-02-08] MEDS: Metoprolol Succinate 25 MG Tab.ER PO SCH (08:56)
[2020-02-08] MEDS: methylPREDNISolone Sodium Succinate 40 MG/1 ML SDV IV SCH (08:56)
[2020-02-08] MEDS: Insulin Aspart 100 Units/ML 3 ML Pen SUBCUT SCH ×3 (08:58→17:57)
[2020-02-08] MEDS: Levofloxacin/Dextrose 5%-Water 750 MG in Premix Bag 1 BAG IV SCH (10:48)
[2020-02-08] MEDS: Pantoprazole 40 MG in Sodium Chloride 0.9% 10 ML IV SCH ×2 (12:46→23:15)
--- NOTE | 2020-02-08 13:18 | PN ---
THC Physician - Brief Progress [id number]/21/2020 13:07[facility] Jojo Green, ORA - RAFFY (ANGELICA) - RAFFY RAOKEVIN ESTRADAQuangDate of Service 02/08/2020 13:07HPI/Events of Note eICU progress [id number] woman admitted with acute on chronic hypercapnic hypoxemic resp iratory failure, probable pneumonia, microcytic anemia.Saw the patient by video, she appeared comfort able. Vitals stable. Oxygen requirements down to 8 to 9 L high flow, with sats in the mid 90s. CPA P at night as tolerated.Reviewed records, meds, labs, imaging. Hemoglobin stable. COVID-19 PCR nega tive. Echocardiogram from 02/04/2020 showed normal left ventricular ejection fraction, hyperdynamic L V, normal RV function.Plan:-Supplemental oxygen, titrated to keep oxygen saturations above 90%-CPAP a t night-Continue levofloxacin-SCDs for DVT prophylaxisDiscussed with bedside RN. We will continue to assist as needed.Interventions Major-Infection - evaluation and management, Respiratory failure - flako luation and managementIntermediate-Communication with other healthcare providers and/or familyElectro nically Signed by: DEBO GARCIA) on 02/08/2020 13:17
--- NOTE | 2020-02-08 15:10 | PCM.PN ---
- General Info Date of Service: 02/08/20 Admission Dx/Problem (Free Text): Admission Diagnosis/Problem Admission Diagnosis/Problem Acute respiratory failure with hypoxia Subjective Update: Feeling a little improved, continues to need HFNC 9L. No chest pain. No black or bloody stools. Dizziness has improved. - Review of Systems General: Reports: Weakness, Fatigue. Denies: Fever, Malaise Pulmonary: Denies: Shortness of Breath, Pleuritic Chest Pain, Cough, Sputum Cardiovascular: Denies: Chest Pain, Palpitations, Dyspnea on Exertion Gastrointestinal: Denies: Abdominal Pain, Constipation Genitourinary: Denies: Dysuria, Frequency, Burning Musculoskeletal: Denies: Neck Pain, Shoulder Pain, Arm Pain - Patient Data Vitals - Most Recent: Last Vital Signs Temp 36.8 C 02/08/20 12:00 Pulse 83 02/08/20 14:00 Resp 13 02/08/20 14:00 BP 129/74 02/08/20 14:00 Pulse Ox 92 L 02/08/20 14:00 Weight - Most Recent: 89.8 kg I&O - Last 24 Hours: Intake & Output 02/08/20 02/08/20 02/08/20 06:59 14:59 22:59 Intake Total 550 Output Total 1300 Balance -750 Lab Results Last 24 Hours: Laboratory Results - last 24 hr 02/07/20 02/07/20 02/08/20 Range/Units 13:46 17:26 01:08 WBC (4.0-11.0) K/uL RBC (4.30-5.90) M/uL Hgb (12.0-16.0) g/dL Hct (36.0-46.0) % MCV (80.0-98.0) fL MCH (27.0-32.0) pg MCHC (31.0-37.0) g/dL RDW Std Deviation (28.0-62.0) fl RDW Coeff of Rajeev (11.0-15.0) % Plt Count (150-400) K/uL MPV (7.40-12.00) fL Neut % (Auto) (48.0-80.0) % Lymph % (Auto) (16.0-40.0) % Thayer % (Auto) (0.0-15.0) % Eos % (Auto) (0.0-7.0) % Baso % (Auto) (0.0-1.5) % Neut # (Auto) (1.4-5.7) K/uL Lymph # (Auto) (0.6-2.4) K/uL Thayer # (Auto) (0.0-0.8) K/uL Eos # (Auto) (0.0-0.7) K/uL Baso # (Auto) (0.0-0.1) K/uL Nucleated RBC % /100WBC Nucleated RBCs # K/uL Sodium (136-145) mmol/L Potassium (3.5-5.1) mmol/L Chloride (98-107) mmol/L Carbon Dioxide (21.0-32.0) mmol/L BUN (7.0-18.0) mg/dL Creatinine (0.6-1.0) mg/dL Est Cr Clr Drug Dosing mL/min Estimated GFR (MDRD) ml/min Glucose (74-106) mg/dL POC Glucose 267 H 238 H (60-110) mg/dL Calcium (8.5-10.1) mg/dL Adenovirus (PCR) Not Detected (Not Detected) B. pertussis DNA (PCR) Not Detected (Not Detected) B.parapertussis DNA PCR Not Detected (Not Detected) C. pneumoniae DNA (PCR) Not Detected (Not Detected) Coronavirus (PCR) Not Detected (Not Detected) Human Metapneumovir PCR Not Detected (Not Detected) Influenza A (RT-PCR) Not Detected (Not Detected) Influenza B (RT-PCR) Not Detected (Not Detected) M. pneumoniae (PCR) Not Detected (Not Detected) Parainfluen 1,2,3,4 PCR Not Detected (Not Detected) RSV (PCR) Not Detected (Not Detected) Entero/Rhino (PCR) Not Detected (Not Detected) 02/08/20 02/08/20 02/08/20 Range/Units 06:00 06:00 06:27 WBC 6.27 (4.0-11.0) K/uL RBC 4.84 (4.30-5.90) M/uL Hgb 9.3 L (12.0-16.0) g/dL Hct 33.9 L (36.0-46.0) % MCV 70.0 L (80.0-98.0) fL MCH 19.2 L (27.0-32.0) pg MCHC 27.4 L (31.0-37.0) g/dL RDW Std Deviation 57.7 (28.0-62.0) fl RDW Coeff of Rajeev 24 H (11.0-15.0) % Plt Count 206 (150-400) K/uL MPV 9.30 (7.40-12.00) fL Neut % (Auto) 77.7 (48.0-80.0) % Lymph % (Auto) 11.2 L (16.0-40.0) % Thayer % (Auto) 10.8 (0.0-15.0) % Eos % (Auto) 0.3 (0.0-7.0) % Baso % (Auto) 0.0 (0.0-1.5) % Neut # (Auto) 4.9 (1.4-5.7) K/uL Lymph # (Auto) 0.7 (0.6-2.4) K/uL Thayer # (Auto) 0.7 (0.0-0.8) K/uL Eos # (Auto) 0.0 (0.0-0.7) K/uL Baso # (Auto) 0.0 (0.0-0.1) K/uL Nucleated RBC % 0.0 /100WBC Nucleated RBCs # 0 K/uL Sodium 141 (136-145) mmol/L Potassium 5.3 H (3.5-5.1) mmol/L Chloride 104 (98-107) mmol/L Carbon Dioxide 36.8 H (21.0-32.0) mmol/L BUN 21 H (7.0-18.0) mg/dL Creatinine 1.2 H (0.6-1.0) mg/dL Est Cr Clr Drug Dosing 31.98 mL/min Estimated GFR (MDRD) 44.2 ml/min Glucose 208 H (74-106) mg/dL POC Glucose 218 H (60-110) mg/dL Calcium 8.8 (8.5-10.1) mg/dL Adenovirus (PCR) (Not Detected) B. pertussis DNA (PCR) (Not Detected) B.parapertussis DNA PCR (Not Detected) C. pneumoniae DNA (PCR) (Not Detected) Coronavirus (PCR) (Not Detected) Human Metapneumovir PCR (Not Detected) Influenza A (RT-PCR) (Not Detected) Influenza B (RT-PCR) (Not Detected) M. pneumoniae (PCR) (Not Detected) Parainfluen 1,2,3,4 PCR (Not Detected) RSV (PCR) (Not Detected) Entero/Rhino (PCR) (Not Detected) 02/08/20 Range/Units 11:04 WBC (4.0-11.0) K/uL RBC (4.30-5.90) M/uL Hgb (12.0-16.0) g/dL Hct (36.0-46.0) % MCV (80.0-98.0) fL MCH (27.0-32.0) pg MCHC (31.0-37.0) g/dL RDW Std Deviation (28.0-62.0) fl RDW Coeff of Rajeev (11.0-15.0) % Plt Count (150-400) K/uL MPV (7.40-12.00) fL Neut % (Auto) (48.0-80.0) % Lymph % (Auto) (16.0-40.0) % Thayer % (Auto) (0.0-15.0) % Eos % (Auto) (0.0-7.0) % Baso % (Auto) (0.0-1.5) % Neut # (Auto) (1.4-5.7) K/uL Lymph # (Auto) (0.6-2.4) K/uL Thayer # (Auto) (0.0-0.8) K/uL Eos # (Auto) (0.0-0.7) K/uL Baso # (Auto) (0.0-0.1) K/uL Nucleated RBC % /100WBC Nucleated RBCs # K/uL Sodium (136-145) mmol/L Potassium (3.5-5.1) mmol/L Chloride (98-107) mmol/L Carbon Dioxide (21.0-32.0) mmol/L BUN (7.0-18.0) mg/dL Creatinine (0.6-1.0) mg/dL Est Cr Clr Drug Dosing mL/min Estimated GFR (MDRD) ml/min Glucose (74-106) mg/dL POC Glucose 139 H (60-110) mg/dL Calcium (8.5-10.1) mg/dL Adenovirus (PCR) (Not Detected) B. pertussis DNA (PCR) (Not Detected) B.parapertussis DNA PCR (Not Detected) C. pneumoniae DNA (PCR) (Not Detected) Coronavirus (PCR) (Not Detected) Human Metapneumovir PCR (Not Detected) Influenza A (RT-PCR) (Not Detected) Influenza B (RT-PCR) (Not Detected) M. pneumoniae (PCR) (Not Detected) Parainfluen 1,2,3,4 PCR (Not Detected) RSV (PCR) (Not Detected) Entero/Rhino (PCR) (Not Detected) Saurabh Results Last 24 Hours: Microbiology 02/07/20 19:30 Stool Occult Blood (SAURABH) - Final Stool / Feces Med Orders - Current: Current Medications Acetaminophen (Tylenol) 650 mg PO Q4H PRN PRN Reason: Pain (Mild 1-3)/fever Last Admin: 02/07/20 01:15 Dose: 650 mg Albuterol (Proventil Neb Soln) 2.5 mg NEB Q4H VI Last Admin: 02/08/20 13:42 Dose: 2.5 mg Bisacodyl (Dulcolax) 10 mg RECTAL DAILY PRN PRN Reason: Constipation Last Admin: 02/06/20 09:35 Dose: 10 mg Pantoprazole Sodium 40 mg/ (Sodium Chloride) 10 mls @ 300 mls/hr IV Q12H VI Last Admin: 02/08/20 12:46 Dose: 300 mls/hr Levofloxacin/Dextrose 750 mg/ (Premix) 150 mls @ 100 mls/hr IV Q48H VI Last Admin: 02/08/20 10:48 Dose: 100 mls/hr Insulin Aspart (Novolog) 0 unit SUBCUT TIDAC [facility]; Protocol Last Admin: 02/08/20 11:53 Dose: Not Given Levothyroxine Sodium (Levothyroxine) 150 mcg PO ACBREAKFAST VI Last Admin: 02/08/20 06:34 Dose: 150 mcg Levothyroxine Sodium (Levothyroxine) 25 mcg PO ACBREAKFAST VI Last Admin: 02/08/20 06:33 Dose: 25 mcg Lidocaine (Lidoderm 5%) 700 mg TOP Q24H [facility] Last Admin: 02/08/20 01:00 Dose: 700 mg Melatonin (Melatonin) 6 mg PO BEDTIME PRN PRN Reason: Sleep Last Admin: 02/08/20 00:59 Dose: 6 mg Methylprednisolone Sodium Succinate (Solu-Medrol) 40 mg IV DAILY [facility] Last Admin: 02/08/20 08:56 Dose: 40 mg Metoclopramide HCl (Reglan) 10 mg IVPUSH Q6H PRN PRN Reason: Nausea Last Admin: 02/05/20 11:40 Dose: 10 mg Metoprolol Succinate (Toprol Xl) 25 mg PO DAILY [facility] Last Admin: 02/08/20 08:56 Dose: 25 mg Nortriptyline HCl (Nortriptyline) 20 mg PO BEDTIME [facility] Last Admin: 02/07/20 20:59 Dose: 20 mg Ondansetron HCl (Zofran) 4 mg IVPUSH Q4H PRN PRN Reason: Nausea Last Admin: 02/05/20 09:03 Dose: 4 mg Discontinued Medications Albuterol (Proventil Neb Soln) 2.5 mg NEB Q4H [facility] Last Admin: 02/07/20 20:01 Dose: Not Given Albuterol/Ipratropium (Duoneb 3.0-0.5 Mg/3 Ml) 3 ml NEB ONETIME ONE Stop: 02/04/20 08:13 Last Admin: 02/04/20 08:23 Dose: 3 ml Albuterol/Ipratropium (Duoneb 3.0-0.5 Mg/3 Ml) Confirm Administered Dose 6 ml .ROUTE .STK-MED ONE Stop: 02/04/20 08:12 Last Admin: 02/04/20 08:35 Dose: Not Given Albuterol/Ipratropium (Duoneb 3.0-0.5 Mg/3 Ml) 3 ml NEB Q4HRRT [facility] Last Admin: 02/07/20 09:41 Dose: 3 ml Al Hydroxide/Mg Hydroxide 15 (ml/ Lidocaine HCl 5 ml) 0 ml PO ONETIME ONE Stop: 02/05/20 12:27 Last Admin: 02/05/20 13:12 Dose: 1 each Dicyclomine HCl (Bentyl) 10 mg PO DAILY [facility] Last Admin: 02/05/20 10:37 Dose: Not Given Furosemide (Lasix) 40 mg IVPUSH NOW ONE Stop: 02/04/20 09:37 Last Admin: 02/04/20 10:47 Dose: 40 mg Furosemide (Lasix) 40 mg IVPUSH BID VI Last Admin: 02/04/20 20:39 Dose: 40 mg Furosemide (Lasix) 20 mg IVPUSH NOW ONE Stop: 02/05/20 20:32 Last Admin: 02/06/20 03:50 Dose: Not Given Furosemide (Lasix) 20 mg IVPUSH ONETIME ONE Stop: 02/07/20 10:06 Last Admin: 02/07/20 10:45 Dose: 20 mg Magnesium Sulfate 2 gm/ Premix 50 mls @ 50 mls/hr IV ONETIME ONE Stop: 02/04/20 09:11 Last Admin: 02/04/20 08:35 Dose: Not Given Magnesium Sulfate 1 gm/ Sodium (Chloride) 52 mls @ 104 mls/hr IV ONETIME ONE Stop: 02/04/20 08:59 Last Admin: 02/04/20 08:40 Dose: 104 mls/hr Levofloxacin/Dextrose 750 mg/ (Premix) 150 mls @ 100 mls/hr IV Q24H [facility] Last Infusion: 02/04/20 11:10 Dose: 50 mls/hr Iron Sucrose 200 mg/ Sodium (Chloride) 110 mls @ 400 mls/hr IV ONETIME ONE Stop: 02/04/20 12:40 Last Admin: 02/04/20 16:41 Dose: Not Given Iron Sucrose 200 mg/ Sodium (Chloride) 110 mls @ 220 mls/hr IV ONETIME ONE Stop: 02/04/20 15:19 Last Admin: 02/04/20 16:39 Dose: 220 mls/hr Sodium Chloride (Normal Saline) 250 mls @ 500 mls/hr IV ASDIRECTED VI Last Admin: 02/05/20 06:39 Dose: 500 mls/hr Sodium Chloride (Normal Saline) 250 mls @ 500 mls/hr IV ASDIRECTED VI Iron Sucrose 200 mg/ Sodium (Chloride) 110 mls @ 220 mls/hr IV ONETIME ONE Stop: 02/05/20 15:29 Last Admin: 02/05/20 15:57 Dose: 220 mls/hr Lidocaine (Lidoderm 5%) 700 mg TOP ONETIME ONE Stop: 02/06/20 02:06 Last Admin: 02/06/20 02:14 Dose: 700 mg Methylprednisolone Sodium Succinate (Solu-Medrol) 125 mg IVPUSH ONETIME ONE Stop: 02/04/20 08:14 Last Admin: 02/04/20 08:40 Dose: 125 mg Miscellaneous Information (Remove Patch) 1 ea TRDERM ONETIME ONE Stop: 02/06/20 14:06 Last Admin: 02/06/20 14:00 Dose: 1 ea Naproxen (Naproxen Sodium) 440 mg PO ONETIME VI Stop: 02/04/20 23:59 Ondansetron HCl (Zofran) Confirm Administered Dose 4 mg .ROUTE .STK-MED ONE Stop: 02/04/20 11:31 Last Admin: 02/04/20 11:36 Dose: Not Given Ondansetron HCl (Zofran) 4 mg IVPUSH ONETIME ONE Stop: 02/04/20 11:37 Last Admin: 02/04/20 11:37 Dose: 4 mg Wound Care/Dressing Products (Duoderm Cgf) Confirm Administered Dose 1 each .ROUTE .STK-MED ONE Stop: 02/05/20 20:48 Last Admin: 02/05/20 20:59 Dose: 1 each - Exam Quality Assessment: Supplemental Oxygen General: Alert, Oriented Neck: Supple, Trachea Midline Lungs: Clear to Auscultation, Normal Respiratory Effort Cardiovascular: Regular Rate, Regular Rhythm GI/Abdominal Exam: Normal Bowel Sounds, Soft, Non-Tender, No Organomegaly Sepsis Event Note - Evaluation Sepsis Screening Result: No Definite Risk - Focused Exam Vital Signs: Vital Signs Temp Pulse Pulse Pulse Resp BP BP 02/08/20 14:00 83 13 129/74 02/08/20 13:00 83 12 134/58 L 02/08/20 12:00 36.8 C 88 12 141/67 H 02/08/20 11:00 89 19 138/62 02/08/20 10:00 82 17 137/68 02/08/20 09:00 90 18 116/50 L 02/08/20 08:56 80 132/57 L 02/08/20 08:00 36.6 C 92 19 132/57 L 02/08/20 07:00 89 18 113/57 L 02/08/20 06:00 37.2 C 89 17 127/61 02/08/20 05:00 87 20 131/68 02/08/20 04:00 89 20 126/61 Pulse Ox Pulse Ox 02/08/20 14:00 92 L 02/08/20 13:00 93 L 02/08/20 12:00 96 02/08/20 11:00 94 L 02/08/20 10:00 93 L 02/08/20 09:00 96 02/08/20 08:56 02/08/20 08:00 90 L 02/08/20 07:00 90 L 02/08/20 06:00 94 L 92 L 02/08/20 05:00 90 L 02/08/20 04:00 95 Date Exam was Performed: 02/08/20 Time Exam was Performed: 15:04 - Problem List & Annotations (1) Acute and chronic respiratory failure with hypoxia SNOMED Code(s): 74436293, 122974204 Code(s): J96.21 - ACUTE AND CHRONIC RESPIRATORY FAILURE WITH HYPOXIA Status : Acute Current Visit: Yes (2) Anemia SNOMED Code(s): 361383686 Code(s): D64.9 - ANEMIA, UNSPECIFIED Status: Acute Current Visit: Yes (3) COPD exacerbation SNOMED Code(s): 238669927 Code(s): J44.1 - CHRONIC OBSTRUCTIVE PULMONARY DISEASE W (ACUTE) EXACERBATION Status: Acute Current Visit: Yes (4) Diaphragm paralysis Status: Chronic Current Visit: Yes (5) HTN (hypertension) SNOMED Code(s): 32959769 Code(s): I10 - ESSENTIAL (PRIMARY) HYPERTENSION Status: Chronic Current Visit: Yes (6) Hypothyroidism SNOMED Code(s): 39840424 Code(s): E03.9 - HYPOTHYROIDISM, UNSPECIFIED Status: Chronic Current Visit: Yes - Problem List Review Problem List Initiated/Reviewed/Updated: Yes - My Orders Last 24 Hours: My Active Orders 02/08/20 00:16 Melatonin 6 mg PO BEDTIME PRN - Plan Plan:: This 74 year old female admitted with acute on chronic hypoxic respiratory failure, possible CHF exacerbation and URI Continue HF NC, place on CPAP at night with oxygen, wean as possible, Continue Levaquin 750 Q48hr for possible PNA, suspicion low. Cont incentive spirometry, encourage OOB to chair Lasix as needed for volume overload, currently doesn't look in fluid overload Anemia improving, cont iron supplementation [employer] improving SSI for DM VTE prophylaxis: SCDs for now GI prophylaxis: Protonix Code Status: Full code Dispo: 2-3 days pending improvement
[2020-02-08] MEDS: Nortriptyline 10 MG Cap PO SCH (20:27)
[2020-02-09] MEDS: Lidocaine 5% 700 MG Patch TOP SCH (02:30)
[2020-02-09] MEDS: Albuterol 0.083% 2.5 MG/3 ML Neb Soln NEB SCH ×6 (02:31→22:06)
[2020-02-09] MEDS: Levothyroxine 150 MCG Tab PO SCH (06:31)
[2020-02-09] MEDS: Levothyroxine 25 MCG Tab PO SCH (06:32)
[2020-02-09] MEDS: Insulin Aspart 100 Units/ML 3 ML Pen SUBCUT SCH ×3 (06:41→17:50)
[2020-02-09 07:03] LABS: CARBON DIOXIDE,CO2 34.9 mmol/L (21.0-32.0); POTASSIUM,K 4.5 mmol/L (3.5-5.1)
[2020-02-09] MEDS: methylPREDNISolone Sodium Succinate 40 MG/1 ML SDV IV SCH (08:30)
[2020-02-09] MEDS: Metoprolol Succinate 25 MG Tab.ER PO SCH (09:46)
[2020-02-09] MEDS: Pantoprazole 40 MG in Sodium Chloride 0.9% 10 ML IV SCH (11:22)
[2020-02-09] MEDS ORDERED: Magnesium Sulfate/Water 2 GM in Premix Bag 1 BAG IV ONE (12:02)
--- NOTE | 2020-02-09 12:06 | PCM.PN ---
- General Info Date of Service: 02/09/20 Admission Dx/Problem (Free Text): Admission Diagnosis/Problem Admission Diagnosis/Problem Acute respiratory failure with hypoxia Subjective Update: Feeling much better, on NC 5 Lts. No chest pain. No black or bloody stools. c/o Dizziness on and off. - Review of Systems General: Denies: Fever, Weakness HEENT: Denies: Dysphasia, Ear Pain, Eye Pain Pulmonary: Denies: Shortness of Breath, Cough Cardiovascular: Denies: Chest Pain, Palpitations, Dyspnea on Exertion Gastrointestinal: Denies: Abdominal Pain, Constipation, Decreased Appetite Genitourinary: Denies: Dysuria, Frequency, Burning, Pain Musculoskeletal: Denies: Neck Pain, Shoulder Pain, Arm Pain Skin: Denies: Cyanosis, Jaundice, Mottled - Patient Data Vitals - Most Recent: Last Vital Signs Temp 36.6 C 02/09/20 11:52 Pulse 82 02/09/20 11:52 Resp 13 02/09/20 11:52 BP 127/70 02/09/20 11:52 Pulse Ox 90 L 02/09/20 11:52 Weight - Most Recent: 88.5 kg I&O - Last 24 Hours: Intake & Output 02/08/20 02/09/20 02/09/20 22:59 06:59 14:59 Intake Total 400 700 Output Total 600 750 Balance -200 -50 Lab Results Last 24 Hours: Laboratory Results - last 24 hr 02/08/20 02/09/20 02/09/20 Range/Units 17:17 06:08 06:08 WBC 6.96 (4.0-11.0) K/uL RBC 4.86 (4.30-5.90) M/uL Hgb 9.5 L (12.0-16.0) g/dL Hct 34.2 L (36.0-46.0) % MCV 70.4 L (80.0-98.0) fL MCH 19.5 L (27.0-32.0) pg MCHC 27.8 L (31.0-37.0) g/dL RDW Std Deviation 59.4 (28.0-62.0) fl RDW Coeff of Rajeev 25 H (11.0-15.0) % Plt Count 218 (150-400) K/uL MPV 9.50 (7.40-12.00) fL Neut % (Auto) 68.0 (48.0-80.0) % Lymph % (Auto) 20.5 (16.0-40.0) % [facility] % (Auto) 10.1 (0.0-15.0) % Eos % (Auto) 1.3 (0.0-7.0) % Baso % (Auto) 0.1 (0.0-1.5) % Neut # (Auto) 4.7 (1.4-5.7) K/uL Lymph # (Auto) 1.4 (0.6-2.4) K/uL [facility] # (Auto) 0.7 (0.0-0.8) K/uL Eos # (Auto) 0.1 (0.0-0.7) K/uL Baso # (Auto) 0.0 (0.0-0.1) K/uL Nucleated RBC % 0.0 /100WBC Nucleated RBCs # 0 K/uL Sodium 142 (136-145) mmol/L Potassium 4.5 (3.5-5.1) mmol/L Chloride 105 (98-107) mmol/L Carbon Dioxide 34.9 H (21.0-32.0) mmol/L BUN 23 H (7.0-18.0) mg/dL Creatinine 1.0 (0.6-1.0) mg/dL Est Cr Clr Drug Dosing 38.37 mL/min Estimated GFR (MDRD) 54.5 ml/min Glucose 141 H (74-106) mg/dL POC Glucose 266 H (60-110) mg/dL Calcium 9.0 (8.5-10.1) mg/dL Phosphorus 3.1 (2.6-4.7) mg/dL Magnesium 1.7 L (1.8-2.4) mg/dL 02/09/20 02/09/20 Range/Units 06:30 10:42 WBC (4.0-11.0) K/uL RBC (4.30-5.90) M/uL Hgb (12.0-16.0) g/dL Hct (36.0-46.0) % MCV (80.0-98.0) fL MCH (27.0-32.0) pg MCHC (31.0-37.0) g/dL RDW Std Deviation (28.0-62.0) fl RDW Coeff of Rajeev (11.0-15.0) % Plt Count (150-400) K/uL MPV (7.40-12.00) fL Neut % (Auto) (48.0-80.0) % Lymph % (Auto) (16.0-40.0) % [facility] % (Auto) (0.0-15.0) % Eos % (Auto) (0.0-7.0) % Baso % (Auto) (0.0-1.5) % Neut # (Auto) (1.4-5.7) K/uL Lymph # (Auto) (0.6-2.4) K/uL [facility] # (Auto) (0.0-0.8) K/uL Eos # (Auto) (0.0-0.7) K/uL Baso # (Auto) (0.0-0.1) K/uL Nucleated RBC % /100WBC Nucleated RBCs # K/uL Sodium (136-145) mmol/L Potassium (3.5-5.1) mmol/L Chloride (98-107) mmol/L Carbon Dioxide (21.0-32.0) mmol/L BUN (7.0-18.0) mg/dL Creatinine (0.6-1.0) mg/dL Est Cr Clr Drug Dosing mL/min Estimated GFR (MDRD) ml/min Glucose (74-106) mg/dL POC Glucose 144 H 114 H (60-110) mg/dL Calcium (8.5-10.1) mg/dL Phosphorus (2.6-4.7) mg/dL Magnesium (1.8-2.4) mg/dL Med Orders - Current: Current Medications Acetaminophen (Tylenol) 650 mg PO Q4H PRN PRN Reason: Pain (Mild 1-3)/fever Last Admin: 02/07/20 01:15 Dose: 650 mg Albuterol (Proventil Neb Soln) 2.5 mg NEB Q4H VI Last Admin: 02/09/20 10:00 Dose: 2.5 mg Bisacodyl (Dulcolax) 10 mg RECTAL DAILY PRN PRN Reason: Constipation Last Admin: 02/06/20 09:35 Dose: 10 mg Pantoprazole Sodium 40 mg/ (Sodium Chloride) 10 mls @ 300 mls/hr IV Q12H [facility] Last Admin: 02/09/20 11:22 Dose: 300 mls/hr Levofloxacin/Dextrose 750 mg/ (Premix) 150 mls @ 100 mls/hr IV Q48H [facility] Last Admin: 02/08/20 10:48 Dose: 100 mls/hr Magnesium Sulfate 2 gm/ Premix 50 mls @ 50 mls/hr IV ONETIME ONE Stop: 02/09/20 13:01 Insulin Aspart (Novolog) 0 unit SUBCUT TIDAC [facility]; Protocol Last Admin: 02/09/20 10:59 Dose: Not Given Levothyroxine Sodium (Levothyroxine) 150 mcg PO ACBREAKFAST [facility] Last Admin: 02/09/20 06:31 Dose: 150 mcg Levothyroxine Sodium (Levothyroxine) 25 mcg PO ACBREAKFAST [facility] Last Admin: 02/09/20 06:32 Dose: 25 mcg Lidocaine (Lidoderm 5%) 700 mg TOP Q24H [facility] Last Admin: 02/09/20 02:30 Dose: 700 mg Melatonin (Melatonin) 6 mg PO BEDTIME PRN PRN Reason: Sleep Last Admin: 02/08/20 23:15 Dose: 6 mg Methylprednisolone Sodium Succinate (Solu-Medrol) 40 mg IV DAILY [facility] Last Admin: 02/09/20 08:30 Dose: 40 mg Metoclopramide HCl (Reglan) 10 mg IVPUSH Q6H PRN PRN Reason: Nausea Last Admin: 02/05/20 11:40 Dose: 10 mg Metoprolol Succinate (Toprol Xl) 25 mg PO DAILY [facility] Last Admin: 02/09/20 09:46 Dose: 25 mg Nortriptyline HCl (Nortriptyline) 20 mg PO BEDTIME [facility] Last Admin: 02/08/20 20:27 Dose: 20 mg Ondansetron HCl (Zofran) 4 mg IVPUSH Q4H PRN PRN Reason: Nausea Last Admin: 02/05/20 09:03 Dose: 4 mg Discontinued Medications Albuterol (Proventil Neb Soln) 2.5 mg NEB Q4H [facility] Last Admin: 02/07/20 20:01 Dose: Not Given Albuterol/Ipratropium (Duoneb 3.0-0.5 Mg/3 Ml) 3 ml NEB ONETIME ONE Stop: 02/04/20 08:13 Last Admin: 02/04/20 08:23 Dose: 3 ml Albuterol/Ipratropium (Duoneb 3.0-0.5 Mg/3 Ml) Confirm Administered Dose 6 ml .ROUTE .STK-MED ONE Stop: 02/04/20 08:12 Last Admin: 02/04/20 08:35 Dose: Not Given Albuterol/Ipratropium (Duoneb 3.0-0.5 Mg/3 Ml) 3 ml NEB Q4HRRT [facility] Last Admin: 02/07/20 09:41 Dose: 3 ml Al Hydroxide/Mg Hydroxide 15 (ml/ Lidocaine HCl 5 ml) 0 ml PO ONETIME ONE Stop: 02/05/20 12:27 Last Admin: 02/05/20 13:12 Dose: 1 each Dicyclomine HCl (Bentyl) 10 mg PO DAILY [facility] Last Admin: 02/05/20 10:37 Dose: Not Given Furosemide (Lasix) 40 mg IVPUSH NOW ONE Stop: 02/04/20 09:37 Last Admin: 02/04/20 10:47 Dose: 40 mg Furosemide (Lasix) 40 mg IVPUSH BID [facility] Last Admin: 02/04/20 20:39 Dose: 40 mg Furosemide (Lasix) 20 mg IVPUSH NOW ONE Stop: 02/05/20 20:32 Last Admin: 02/06/20 03:50 Dose: Not Given Furosemide (Lasix) 20 mg IVPUSH ONETIME ONE Stop: 02/07/20 10:06 Last Admin: 02/07/20 10:45 Dose: 20 mg Magnesium Sulfate 2 gm/ Premix 50 mls @ 50 mls/hr IV ONETIME ONE Stop: 02/04/20 09:11 Last Admin: 02/04/20 08:35 Dose: Not Given Magnesium Sulfate 1 gm/ Sodium (Chloride) 52 mls @ 104 mls/hr IV ONETIME ONE Stop: 02/04/20 08:59 Last Admin: 02/04/20 08:40 Dose: 104 mls/hr Levofloxacin/Dextrose 750 mg/ (Premix) 150 mls @ 100 mls/hr IV Q24H [facility] Last Infusion: 02/04/20 11:10 Dose: 50 mls/hr Iron Sucrose 200 mg/ Sodium (Chloride) 110 mls @ 400 mls/hr IV ONETIME ONE Stop: 02/04/20 12:40 Last Admin: 02/04/20 16:41 Dose: Not Given Iron Sucrose 200 mg/ Sodium (Chloride) 110 mls @ 220 mls/hr IV ONETIME ONE Stop: 02/04/20 15:19 Last Admin: 02/04/20 16:39 Dose: 220 mls/hr Sodium Chloride (Normal Saline) 250 mls @ 500 mls/hr IV ASDIRECTED [facility] Last Admin: 02/05/20 06:39 Dose: 500 mls/hr Sodium Chloride (Normal Saline) 250 mls @ 500 mls/hr IV ASDIRECTED [facility] Iron Sucrose 200 mg/ Sodium (Chloride) 110 mls @ 220 mls/hr IV ONETIME ONE Stop: 02/05/20 15:29 Last Admin: 02/05/20 15:57 Dose: 220 mls/hr Lidocaine (Lidoderm 5%) 700 mg TOP ONETIME ONE Stop: 02/06/20 02:06 Last Admin: 02/06/20 02:14 Dose: 700 mg Methylprednisolone Sodium Succinate (Solu-Medrol) 125 mg IVPUSH ONETIME ONE Stop: 02/04/20 08:14 Last Admin: 02/04/20 08:40 Dose: 125 mg Miscellaneous Information (Remove Patch) 1 ea TRDERM ONETIME ONE Stop: 02/06/20 14:06 Last Admin: 02/06/20 14:00 Dose: 1 ea Naproxen (Naproxen Sodium) 440 mg PO ONETIME [facility] Stop: 02/04/20 23:59 Ondansetron HCl (Zofran) Confirm Administered Dose 4 mg .ROUTE .STK-MED ONE Stop: 02/04/20 11:31 Last Admin: 02/04/20 11:36 Dose: Not Given Ondansetron HCl (Zofran) 4 mg IVPUSH ONETIME ONE Stop: 02/04/20 11:37 Last Admin: 02/04/20 11:37 Dose: 4 mg Wound Care/Dressing Products (Duoderm Cgf) Confirm Administered Dose 1 each .ROUTE .STK-MED ONE Stop: 02/05/20 20:48 Last Admin: 02/05/20 20:59 Dose: 1 each - Exam Quality Assessment: Supplemental Oxygen General: Alert, Oriented Neck: Supple, Trachea Midline, No Thyromegaly Lungs: Clear to Auscultation, Normal Respiratory Effort Cardiovascular: Regular Rate, Regular Rhythm GI/Abdominal Exam: Normal Bowel Sounds, Soft, Non-Tender Sepsis Event Note - Evaluation Sepsis Screening Result: No Definite Risk - Focused Exam Vital Signs: Vital Signs Temp Pulse Pulse Pulse Resp BP BP 02/09/20 11:52 36.6 C 82 13 127/70 02/09/20 10:55 85 17 127/71 02/09/20 09:58 84 19 118/51 L 02/09/20 09:46 98 133/64 02/09/20 08:53 78 18 110/40 L 02/09/20 08:00 36.3 C 81 19 110/42 L 02/09/20 07:00 16 130/67 02/09/20 06:00 80 20 135/63 02/09/20 05:00 81 18 104/45 L 02/09/20 04:00 87 18 114/47 L 02/09/20 03:00 86 20 124/74 02/09/20 02:00 89 17 115/45 L 02/09/20 01:00 83 21 H 134/63 Pulse Ox Pulse Ox 02/09/20 11:52 90 L 02/09/20 10:55 91 L 02/09/20 09:58 89 L 02/09/20 09:46 02/09/20 08:53 90 L 02/09/20 08:00 91 L 02/09/20 07:00 92 L 02/09/20 06:00 93 L 91 L 02/09/20 05:00 88 L 02/09/20 04:00 93 L 02/09/20 03:00 93 L 02/09/20 02:00 95 02/09/20 01:00 93 L Date Exam was Performed: 02/09/20 Time Exam was Performed: 15:09 - Problem List & Annotations (1) Acute and chronic respiratory failure with hypoxia SNOMED Code(s): 12284911, 212524927 Code(s): J96.21 - ACUTE AND CHRONIC RESPIRATORY FAILURE WITH HYPOXIA Status : Acute Current Visit: Yes (2) Anemia SNOMED Code(s): 567755799 Code(s): D64.9 - ANEMIA, UNSPECIFIED Status: Acute Current Visit: Yes (3) COPD exacerbation SNOMED Code(s): 643743451 Code(s): J44.1 - CHRONIC OBSTRUCTIVE PULMONARY DISEASE W (ACUTE) EXACERBATION Status: Acute Current Visit: Yes (4) Diaphragm paralysis Status: Chronic Current Visit: Yes (5) HTN (hypertension) SNOMED Code(s): 17966969 Code(s): I10 - ESSENTIAL (PRIMARY) HYPERTENSION Status: Chronic Current Visit: Yes (6) Hypothyroidism SNOMED Code(s): 02937516 Code(s): E03.9 - HYPOTHYROIDISM, UNSPECIFIED Status: Chronic Current Visit: Yes - My Orders Last 24 Hours: My Active Orders 02/09/20 12:02 Magnesium Sulfate/Water [Magnesium Sulfate in Water Premix] 2 gm Premix Bag 1 bag IV ONETIME - Plan Plan:: This 74 year old female admitted with acute on chronic hypoxic respiratory failure, possible CHF exacerbation and URI Improving, Continue on NC, place on CPAP at night with oxygen, wean as possible , Continue Levaquin 750 Q48hr for possible PNA, suspicion low. Cont incentive spirometry, encourage OOB to chair Lasix as needed for volume overload, currently doesn't look in fluid overload Anemia improving, cont iron supplementation Bronze Chaser improving, resume Lasix, start long actin insulin SSI per protocol VTE prophylaxis: SCDs for now GI prophylaxis: Protonix Code Status: Full code Dispo: 2-3 days pending improvement
--- NOTE | 2020-02-09 13:53 | PN ---
THC Physician - Brief Progress [id number]/22/2020 13:45[facility] Jojo veras, ORA - RAFFY (ANGELICA) - RAFFY EDMONDSKEVINQuangDate of Service 02/09/2020 13:45HPI/Events of Note eICU progress [id number] woman admitted with acute on chronic hypercapnic hypoxemic resp iratory failure, COPD with acute exacerbation, probable pneumonia, microcytic anemia, CHF with possib le acute exacerbation.Saw the patient by video, she appeared comfortable. Vitals stable. Oxygen requi rements down to 5 L (yesterday 8-9L high flow), with sats in the mid 90s. CPAP at night as tolerated. Reviewed records, meds, labs, imaging.Plan:-Supplemental oxygen titrate to keep oxygen saturations a kiet 90%-On bronchodilators, IV steroids-CPAP at night or as needed-Continue levofloxacin-Furosemide as needed-SCDs for DVT prophylaxisWe will continue to assist as needed.Interventions Major-Infection - evaluation and management, Respiratory failure - evaluation and management
[2020-02-09] MEDS ORDERED: Meclizine 25 MG Tab PO PRN (15:04)
[2020-02-09] MEDS ORDERED: Furosemide 20 MG Tab PO PRN (15:06)
[2020-02-09] MEDS: Insulin Glargine,Human Rec. Analog 100 Units/ML 3 ML Pen SUBCUT SCH (20:37)
[2020-02-09] MEDS: Omeprazole 20 MG Cap.CR PO SCH (20:40)
[2020-02-09] MEDS: Nortriptyline 10 MG Cap PO SCH (20:40)
[2020-02-09] MEDS: atorvaSTATin 20 MG Tab PO SCH (20:40)
[2020-02-09] MEDS: Cholecalciferol (Vitamin D3) 25 MCG Tab PO SCH (20:41)
[2020-02-10] MEDS: Albuterol 0.083% 2.5 MG/3 ML Neb Soln NEB SCH ×6 (01:21→21:20)
[2020-02-10] MEDS: Lidocaine 5% 700 MG Patch TOP SCH (01:21)
[2020-02-10] MEDS: Levothyroxine 25 MCG Tab PO SCH (06:33)
[2020-02-10] MEDS: Levothyroxine 150 MCG Tab PO SCH (06:33)
[2020-02-10 06:44] LABS: CARBON DIOXIDE,CO2 34.4 mmol/L (21.0-32.0); POTASSIUM,K 3.8 mmol/L (3.5-5.1)
[2020-02-10] MEDS: Insulin Aspart 100 Units/ML 3 ML Pen SUBCUT SCH ×3 (06:50→17:18)
[2020-02-10] MEDS: Omeprazole 20 MG Cap.CR PO SCH ×2 (08:57→22:06)
[2020-02-10] MEDS: Metoprolol Succinate 25 MG Tab.ER PO SCH (08:58)
[2020-02-10] MEDS: methylPREDNISolone Sodium Succinate 40 MG/1 ML SDV IV SCH (08:58)
--- NOTE | 2020-02-10 10:00 | PCM.PN ---
- General Info Date of Service: 02/10/20 Admission Dx/Problem (Free Text): Admission Diagnosis/Problem Admission Diagnosis/Problem Acute respiratory failure with hypoxia Subjective Update: Much improved today. No chest pain. Dyspnea improved, still having dizziness with getting up and down. - Review of Systems General: Reports: No Symptoms. Denies: Weakness, Fatigue, Malaise Pulmonary: Reports: No Symptoms. Denies: Shortness of Breath Cardiovascular: Reports: No Symptoms. Denies: Chest Pain Gastrointestinal: Reports: No Symptoms. Denies: Abdominal Pain, Nausea, Vomiting Genitourinary: Reports: No Symptoms Musculoskeletal: Reports: No Symptoms Skin: Reports: No Symptoms Neurological: Reports: Dizziness Psychiatric: Reports: No Symptoms - Patient Data Vitals - Most Recent: Last Vital Signs Temp 97.7 F 02/10/20 08:00 Pulse 80 02/10/20 08:58 Resp 11 L 02/10/20 09:00 BP 140/60 02/10/20 09:00 Pulse Ox 94 L 02/10/20 09:00 Weight - Most Recent: 91.6 kg I&O - Last 24 Hours: Intake & Output 02/09/20 02/10/20 02/10/20 22:59 06:59 14:59 Intake Total 800 600 Output Total 500 1150 Balance 300 -550 Lab Results Last 24 Hours: Laboratory Results - last 24 hr 02/09/20 02/09/20 02/09/20 Range/Units 10:42 17:21 20:31 WBC (4.0-11.0) K/uL RBC (4.30-5.90) M/uL Hgb (12.0-16.0) g/dL Hct (36.0-46.0) % MCV (80.0-98.0) fL MCH (27.0-32.0) pg MCHC (31.0-37.0) g/dL RDW Std Deviation (28.0-62.0) fl RDW Coeff of Rajeev (11.0-15.0) % Plt Count (150-400) K/uL MPV (7.40-12.00) fL Neut % (Auto) (48.0-80.0) % Lymph % (Auto) (16.0-40.0) % [place] % (Auto) (0.0-15.0) % Eos % (Auto) (0.0-7.0) % Baso % (Auto) (0.0-1.5) % Neut # (Auto) (1.4-5.7) K/uL Lymph # (Auto) (0.6-2.4) K/uL [place] # (Auto) (0.0-0.8) K/uL Eos # (Auto) (0.0-0.7) K/uL Baso # (Auto) (0.0-0.1) K/uL Nucleated RBC % /100WBC Nucleated RBCs # K/uL Sodium (136-145) mmol/L Potassium (3.5-5.1) mmol/L Chloride (98-107) mmol/L Carbon Dioxide (21.0-32.0) mmol/L BUN (7.0-18.0) mg/dL Creatinine (0.6-1.0) mg/dL Est Cr Clr Drug Dosing mL/min Estimated GFR (MDRD) ml/min Glucose (74-106) mg/dL POC Glucose 114 H 343 H 325 H (60-110) mg/dL Calcium (8.5-10.1) mg/dL Phosphorus (2.6-4.7) mg/dL Magnesium (1.8-2.4) mg/dL 02/10/20 02/10/20 02/10/20 Range/Units 05:40 05:40 06:32 WBC 7.15 (4.0-11.0) K/uL RBC 4.86 (4.30-5.90) M/uL Hgb 9.6 L (12.0-16.0) g/dL Hct 34.2 L (36.0-46.0) % MCV 70.4 L (80.0-98.0) fL MCH 19.8 L (27.0-32.0) pg MCHC 28.1 L (31.0-37.0) g/dL RDW Std Deviation 60.7 (28.0-62.0) fl RDW Coeff of Rajeev 26 H (11.0-15.0) % Plt Count 199 (150-400) K/uL MPV 9.50 (7.40-12.00) fL Neut % (Auto) 65.7 (48.0-80.0) % Lymph % (Auto) 22.9 (16.0-40.0) % [place] % (Auto) 10.1 (0.0-15.0) % Eos % (Auto) 1.3 (0.0-7.0) % Baso % (Auto) 0.0 (0.0-1.5) % Neut # (Auto) 4.7 (1.4-5.7) K/uL Lymph # (Auto) 1.6 (0.6-2.4) K/uL [place] # (Auto) 0.7 (0.0-0.8) K/uL Eos # (Auto) 0.1 (0.0-0.7) K/uL Baso # (Auto) 0.0 (0.0-0.1) K/uL Nucleated RBC % 0.0 /100WBC Nucleated RBCs # 0 K/uL Sodium 144 (136-145) mmol/L Potassium 3.8 (3.5-5.1) mmol/L Chloride 106 (98-107) mmol/L Carbon Dioxide 34.4 H (21.0-32.0) mmol/L BUN 22 H (7.0-18.0) mg/dL Creatinine 1.1 H (0.6-1.0) mg/dL Est Cr Clr Drug Dosing 34.88 mL/min Estimated GFR (MDRD) 48.8 ml/min Glucose 145 H (74-106) mg/dL POC Glucose 129 H (60-110) mg/dL Calcium 8.9 (8.5-10.1) mg/dL Phosphorus 3.1 (2.6-4.7) mg/dL Magnesium 1.8 (1.8-2.4) mg/dL Med Orders - Current: Current Medications Acetaminophen (Tylenol) 650 mg PO Q4H PRN PRN Reason: Pain (Mild 1-3)/fever Last Admin: 02/07/20 01:15 Dose: 650 mg Albuterol (Proventil Neb Soln) 2.5 mg NEB Q4H VI Last Admin: 02/10/20 06:50 Dose: 2.5 mg Atorvastatin Calcium (Lipitor) 20 mg PO BEDTIME VI Last Admin: 02/09/20 20:40 Dose: 20 mg Bisacodyl (Dulcolax) 10 mg RECTAL DAILY PRN PRN Reason: Constipation Last Admin: 02/06/20 09:35 Dose: 10 mg Cholecalciferol (Vitamin D3) 25 mcg PO BEDTIME [facility] Last Admin: 02/09/20 20:41 Dose: 25 mcg Furosemide (Lasix) 20 mg PO DAILY PRN PRN Reason: swelling Levofloxacin/Dextrose 750 mg/ (Premix) 150 mls @ 100 mls/hr IV Q48H [facility] Last Admin: 02/08/20 10:48 Dose: 100 mls/hr Insulin Aspart (Novolog) 0 unit SUBCUT TIDAC [facility]; Protocol Last Admin: 02/10/20 06:50 Dose: Not Given Insulin Glargine (Lantus Solostar) 10 units SUBCUT BEDTIME [facility] Last Admin: 02/09/20 20:37 Dose: 10 units Levothyroxine Sodium (Levothyroxine) 150 mcg PO ACBREAKFAST [facility] Last Admin: 02/10/20 06:33 Dose: 150 mcg Levothyroxine Sodium (Levothyroxine) 25 mcg PO ACBREAKFAST [facility] Last Admin: 02/10/20 06:33 Dose: 25 mcg Lidocaine (Lidoderm 5%) 700 mg TOP Q24H [facility] Last Admin: 02/10/20 01:21 Dose: 700 mg Meclizine HCl (Antivert) 25 mg PO DAILY PRN PRN Reason: Dizziness Last Admin: 02/09/20 18:47 Dose: 25 mg Melatonin (Melatonin) 6 mg PO BEDTIME PRN PRN Reason: Sleep Last Admin: 02/08/20 23:15 Dose: 6 mg Methylprednisolone Sodium Succinate (Solu-Medrol) 40 mg IV DAILY [facility] Last Admin: 02/10/20 08:58 Dose: 40 mg Metoclopramide HCl (Reglan) 10 mg IVPUSH Q6H PRN PRN Reason: Nausea Last Admin: 02/05/20 11:40 Dose: 10 mg Metoprolol Succinate (Toprol Xl) 25 mg PO DAILY [facility] Last Admin: 02/10/20 08:58 Dose: 25 mg Nortriptyline HCl (Nortriptyline) 20 mg PO BEDTIME [facility] Last Admin: 02/09/20 20:40 Dose: 20 mg Omeprazole (Omeprazole) 40 mg PO BID [facility] Last Admin: 02/10/20 08:57 Dose: 40 mg Ondansetron HCl (Zofran) 4 mg IVPUSH Q4H PRN PRN Reason: Nausea Last Admin: 02/05/20 09:03 Dose: 4 mg Polysaccharide Iron Complex (Ferrex 150) 150 mg PO DAILY [facility] Discontinued Medications Albuterol (Proventil Neb Soln) 2.5 mg NEB Q4H VI Last Admin: 02/07/20 20:01 Dose: Not Given Albuterol/Ipratropium (Duoneb 3.0-0.5 Mg/3 Ml) 3 ml NEB ONETIME ONE Stop: 02/04/20 08:13 Last Admin: 02/04/20 08:23 Dose: 3 ml Albuterol/Ipratropium (Duoneb 3.0-0.5 Mg/3 Ml) Confirm Administered Dose 6 ml .ROUTE .STK-MED ONE Stop: 02/04/20 08:12 Last Admin: 02/04/20 08:35 Dose: Not Given Albuterol/Ipratropium (Duoneb 3.0-0.5 Mg/3 Ml) 3 ml NEB Q4HRRT [facility] Last Admin: 02/07/20 09:41 Dose: 3 ml Al Hydroxide/Mg Hydroxide 15 (ml/ Lidocaine HCl 5 ml) 0 ml PO ONETIME ONE Stop: 02/05/20 12:27 Last Admin: 02/05/20 13:12 Dose: 1 each Dicyclomine HCl (Bentyl) 10 mg PO DAILY [facility] Last Admin: 02/05/20 10:37 Dose: Not Given Furosemide (Lasix) 40 mg IVPUSH NOW ONE Stop: 02/04/20 09:37 Last Admin: 02/04/20 10:47 Dose: 40 mg Furosemide (Lasix) 40 mg IVPUSH BID [facility] Last Admin: 02/04/20 20:39 Dose: 40 mg Furosemide (Lasix) 20 mg IVPUSH NOW ONE Stop: 02/05/20 20:32 Last Admin: 02/06/20 03:50 Dose: Not Given Furosemide (Lasix) 20 mg IVPUSH ONETIME ONE Stop: 02/07/20 10:06 Last Admin: 02/07/20 10:45 Dose: 20 mg Magnesium Sulfate 2 gm/ Premix 50 mls @ 50 mls/hr IV ONETIME ONE Stop: 02/04/20 09:11 Last Admin: 02/04/20 08:35 Dose: Not Given Magnesium Sulfate 1 gm/ Sodium (Chloride) 52 mls @ 104 mls/hr IV ONETIME ONE Stop: 02/04/20 08:59 Last Admin: 02/04/20 08:40 Dose: 104 mls/hr Levofloxacin/Dextrose 750 mg/ (Premix) 150 mls @ 100 mls/hr IV Q24H [facility] Last Infusion: 02/04/20 11:10 Dose: 50 mls/hr Pantoprazole Sodium 40 mg/ (Sodium Chloride) 10 mls @ 300 mls/hr IV Q12H [facility] Last Admin: 02/09/20 11:22 Dose: 300 mls/hr Iron Sucrose 200 mg/ Sodium (Chloride) 110 mls @ 400 mls/hr IV ONETIME ONE Stop: 02/04/20 12:40 Last Admin: 02/04/20 16:41 Dose: Not Given Iron Sucrose 200 mg/ Sodium (Chloride) 110 mls @ 220 mls/hr IV ONETIME ONE Stop: 02/04/20 15:19 Last Admin: 02/04/20 16:39 Dose: 220 mls/hr Sodium Chloride (Normal Saline) 250 mls @ 500 mls/hr IV ASDIRECTED [facility] Last Admin: 02/05/20 06:39 Dose: 500 mls/hr Sodium Chloride (Normal Saline) 250 mls @ 500 mls/hr IV ASDIRECTED [facility] Iron Sucrose 200 mg/ Sodium (Chloride) 110 mls @ 220 mls/hr IV ONETIME ONE Stop: 02/05/20 15:29 Last Admin: 02/05/20 15:57 Dose: 220 mls/hr Magnesium Sulfate 2 gm/ Premix 50 mls @ 50 mls/hr IV ONETIME ONE Stop: 02/09/20 13:01 Last Admin: 02/09/20 12:44 Dose: 50 mls/hr Lidocaine (Lidoderm 5%) 700 mg TOP ONETIME ONE Stop: 02/06/20 02:06 Last Admin: 02/06/20 02:14 Dose: 700 mg Methylprednisolone Sodium Succinate (Solu-Medrol) 125 mg IVPUSH ONETIME ONE Stop: 02/04/20 08:14 Last Admin: 02/04/20 08:40 Dose: 125 mg Miscellaneous Information (Remove Patch) 1 ea TRDERM ONETIME ONE Stop: 02/06/20 14:06 Last Admin: 02/06/20 14:00 Dose: 1 ea Naproxen (Naproxen Sodium) 440 mg PO ONETIME VI Stop: 02/04/20 23:59 Ondansetron HCl (Zofran) Confirm Administered Dose 4 mg .ROUTE .STK-MED ONE Stop: 02/04/20 11:31 Last Admin: 02/04/20 11:36 Dose: Not Given Ondansetron HCl (Zofran) 4 mg IVPUSH ONETIME ONE Stop: 02/04/20 11:37 Last Admin: 02/04/20 11:37 Dose: 4 mg Wound Care/Dressing Products (Duoderm Cgf) Confirm Administered Dose 1 each .ROUTE .STK-MED ONE Stop: 02/05/20 20:48 Last Admin: 02/05/20 20:59 Dose: 1 each - Exam Quality Assessment: Supplemental Oxygen General: Alert, Oriented, Cooperative, No Acute Distress Neck: Supple Lungs: Normal Respiratory Effort, Crackles (fine crackles bibasilar) Cardiovascular: Regular Rate, Regular Rhythm GI/Abdominal Exam: Normal Bowel Sounds, Soft, Non-Tender Extremities: Normal Inspection, Normal Range of Motion, Non-Tender, Pedal Edema (+1 pitting BLE) Wound/Incisions: Healing Well Neurological: No New Focal Deficit Psy/Mental Status: Alert, Normal Affect, Normal Mood Sepsis Event Note - Evaluation Sepsis Screening Result: No Definite Risk - Focused Exam Vital Signs: Vital Signs Temp Pulse Pulse Resp BP BP BP 02/10/20 09:00 11 L 140/60 02/10/20 08:58 80 143/63 H 02/10/20 08:00 97.7 F 10 L 143/63 H 02/10/20 07:00 18 106/50 L 02/10/20 06:00 91 18 104/50 L 02/10/20 05:00 93 18 129/53 L 02/10/20 04:00 97.9 F 85 20 112/43 L 02/10/20 03:00 87 15 168/83 H 02/10/20 02:00 88 19 130/62 02/10/20 01:00 97 14 134/65 02/10/20 00:00 98.0 F 81 17 141/66 H 02/09/20 23:00 83 18 136/58 L 02/09/20 22:00 84 16 141/64 H Pulse Ox Pulse Ox 03/23/20 09:00 94 L 02/10/20 08:58 02/10/20 08:00 91 L 02/10/20 07:00 95 02/10/20 06:00 91 L 91 L 02/10/20 05:00 92 L 02/10/20 04:00 90 L 02/10/20 03:00 96 02/10/20 02:00 94 L 02/10/20 01:00 92 L 02/10/20 00:00 91 L 02/09/20 23:00 91 L 02/09/20 22:00 92 L Date Exam was Performed: 02/10/20 Time Exam was Performed: 13:06 - Problem List & Annotations (1) Acute and chronic respiratory failure with hypoxia SNOMED Code(s): 87763164, 656068846 Code(s): J96.21 - ACUTE AND CHRONIC RESPIRATORY FAILURE WITH HYPOXIA Status : Acute Current Visit: Yes (2) CHF (congestive heart failure) SNOMED Code(s): 96429439 Code(s): I50.9 - HEART FAILURE, UNSPECIFIED Status: Acute Current Visit: Yes Qualifiers: Heart failure type: diastolic Heart failure chronicity: acute on chronic Qualified Code(s): I50.33 - Acute on chronic diastolic (congestive) heart failure (3) COPD exacerbation SNOMED Code(s): 419996505 Code(s): J44.1 - CHRONIC OBSTRUCTIVE PULMONARY DISEASE W (ACUTE) EXACERBATION Status: Acute Current Visit: Yes (4) Anemia SNOMED Code(s): 595560153 Code(s): D64.9 - ANEMIA, UNSPECIFIED Status: Acute Current Visit: Yes (5) HTN (hypertension) SNOMED Code(s): 87761667 Code(s): I10 - ESSENTIAL (PRIMARY) HYPERTENSION Status: Chronic Current Visit: Yes (6) Hypothyroidism SNOMED Code(s): 51564208 Code(s): E03.9 - HYPOTHYROIDISM, UNSPECIFIED Status: Chronic Current Visit: Yes (7) Diaphragm paralysis Status: Chronic Current Visit: Yes - Problem List Review Problem List Initiated/Reviewed/Updated: Yes - My Orders Last 24 Hours: My Active Orders 02/10/20 09:33 Communication Order [RC] ROUTINE 02/10/20 09:34 Consult to [facility] [CONS] Routine 02/10/20 09:45 Iron Polysaccharides Complex [Ferrex 150] 150 mg PO DAILY - Plan Plan:: This 74 year old female admitted with acute on chronic hypoxic respiratory failure, possible CHF exacerbation and URI 1. Acute on chronic hypoxic respiratory failure, improving - CPAP at night with oxygen, pressure 13 at home- home cpap is not working correctly. [email or web address] staff here to assess CPAP, humidifer is failing, not using water and not warming up. She is in need of CPAP repair/replacement due to severe PATSY. - Continue oxygen support, wean as possible. Currently on 3-4 L NC. - Hx of paralyzed diaphragm, R sided. - Continue Levaquin 750 Q48hr for possible PNA, suspicion low, will switch to PO - Switch to Prednisone 2. CHF, - ECHO shows hyperdynamic left ventricular systolic function EF 65-70%. - Hx diastolic dysfunction, likely not exacerbation. related to anemia potentially - Strict I/O - Daily weights - Low Na diet - Give Lasix 20 mg PO PRN 3. Anemia, symptomatic - Hgb stable. - Iron PO replacement - Will need outpatient follow up for endoscopy. 4. RACHNA, improving - Monitor 5. Dm Type 2: - Novolog SSI, not eating well. - restart Lantus. - Monitor closely. 6. HTN: - Slowly restarting antihypertensives as BP improves. 7. Chronic back pain: - Worsening due to lack of NSAIDs - Lidocaine patch helps, will continue. Place for 12 hours then remove for 12 hours rotation. VTE prophylaxis: SCDs GI prophylaxis: Protonix Code Status: Full code Dispo: transition to Med/Surg telemetry today. Likely DC in 1-2 days
[2020-02-10] MEDS: Iron Polysaccharides Complex 150 MG Cap PO SCH (10:25)
[2020-02-10] MEDS: Levofloxacin/Dextrose 5%-Water 750 MG in Premix Bag 1 BAG IV SCH (10:30)
[2020-02-10] MEDS ORDERED: diphenhydrAMINE 25 MG Cap PO ONE (11:12)
[2020-02-10] MEDS: Nortriptyline 10 MG Cap PO SCH (22:06)
[2020-02-10] MEDS: atorvaSTATin 20 MG Tab PO SCH (22:06)
[2020-02-10] MEDS: Cholecalciferol (Vitamin D3) 25 MCG Tab PO SCH (22:07)
[2020-02-10] MEDS: Insulin Glargine,Human Rec. Analog 100 Units/ML 3 ML Pen SUBCUT SCH (22:18)
[2020-02-11] MEDS: Albuterol 0.083% 2.5 MG/3 ML Neb Soln NEB SCH ×3 (03:00→09:53)
[2020-02-11] MEDS: Lidocaine 5% 700 MG Patch TOP SCH (03:00)
[2020-02-11 06:17] LABS: CARBON DIOXIDE,CO2 35.2 mmol/L (21.0-32.0); POTASSIUM,K 3.8 mmol/L (3.5-5.1)
[2020-02-11] MEDS: Insulin Aspart 100 Units/ML 3 ML Pen SUBCUT SCH ×3 (07:54→18:06)
[2020-02-11] MEDS: Levothyroxine 150 MCG Tab PO SCH (07:58)
[2020-02-11] MEDS ORDERED: predniSONE 20 MG Tab PO SCH (08:00)
[2020-02-11] MEDS: Levothyroxine 25 MCG Tab PO SCH (08:01)
[2020-02-11] MEDS: Iron Polysaccharides Complex 150 MG Cap PO SCH (08:01)
[2020-02-11] MEDS: Metoprolol Succinate 25 MG Tab.ER PO SCH (08:02)
[2020-02-11] MEDS: Omeprazole 20 MG Cap.CR PO SCH (08:03)
--- NOTE | 2020-02-11 11:31 | PCM.DCSUM1 ---
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 Per EMS on her 3 L NC at home, she was sating 79% on their arrival. She reports last night she felt tired and off, and felt like she had fever, but couldn't check due to not being able to find her thermometer. She reports dry cough, scratchy throat. No sputum production or hemoptysis. reports dyspnea even at rest. Denies overt positional dyspnea. No peripheral edema noted. No chest pain or palpitations. She denies urinary concerns and no diarrhea. reports mild nausea with poor appetite. She denies recent travel or contact with sick individuals. Has left her house to go to the grocery store and other errands. In the ED no leukocytosis 10,810, hgb 8.3 platelets 292, BUN 16, Cr 1.4 glucose 63, troponin negative. CXR shows increased central lung markings, difficult to exclude pulmonary vascular congestion. Influenza negative. She was placed on simple mask 10 L by EMS, and then 15 L NRB in ED, ABG obtained PO2 noted to be 58, RR 30s. She was place don bipap in ED. Coronavirus test pending. Will place in airborne precautions and admit to ICU. - Discharge Data Discharge Date: 02/11/20 Discharge Disposition: Home, W Home Health Agency 06 Condition: Good - Referral to Home Health Date of Face to Face Encounter: 02/11/20 Reason for Homebound Status: She is unable to drive due to intermittent dizziness, needs caregiver to obtain medications and provide grocery shopping for her. Primary Care Physician: PCP None Skilled Need: She is in need of mcc to assess oxygen saturations and blood pressure intermittently. Monitor weight and leg swelling for instruction on need for PRN lasix. She is in need of PT to evaluate and treat due to dizziness and physical deconditioning secondary to pulmonary disease and acute hospitalization - Discharge Diagnosis/Problem(s) (1) Acute and chronic respiratory failure with hypoxia SNOMED Code(s): 51164833, 769629768 ICD Code: J96.21 - ACUTE AND CHRONIC RESPIRATORY FAILURE WITH HYPOXIA Status: Acute Current Visit: Yes (2) CHF (congestive heart failure) SNOMED Code(s): 50470595 ICD Code: I50.9 - HEART FAILURE, UNSPECIFIED Status: Acute Current Visit : Yes Qualifiers: Heart failure type: diastolic Heart failure chronicity: acute on chronic Qualified Code(s): I50.33 - Acute on chronic diastolic (congestive) heart failure (3) COPD exacerbation SNOMED Code(s): 399759769 ICD Code: J44.1 - CHRONIC OBSTRUCTIVE PULMONARY DISEASE W (ACUTE) EXACERBATION Status: Acute Current Visit: Yes (4) Anemia SNOMED Code(s): 817162941 ICD Code: D64.9 - ANEMIA, UNSPECIFIED Status: Acute Current Visit: Yes (5) HTN (hypertension) SNOMED Code(s): 37794091 ICD Code: I10 - ESSENTIAL (PRIMARY) HYPERTENSION Status: Chronic Current Visit: Yes (6) Hypothyroidism SNOMED Code(s): 21113824 ICD Code: E03.9 - HYPOTHYROIDISM, UNSPECIFIED Status: Chronic Current Visit: Yes (7) Diaphragm paralysis Status: Chronic Current Visit: Yes - Patient Summary/Data Consults: Consultations 02/07/20 08:47 Consult to Physical Therapy [PT Evaluation and Treatment] [CONS] Routine 02/10/20 09:34 Consult to Call Center Nurse [CONS] Routine - Patient Instructions Diet: Diabetic Diet Activity: As Tolerated, No Strenuous Activities, Rest and Relax Today Activity, Other: Self isolate, limit going to stores. Showering/Bathing: May Shower Notify Provider of: Fever, Increased Pain, Swelling and Redness, Drainage, Nausea and/or Vomiting Other/Special Instructions: Monitor Blood pressures, log and bring to Dr Jean-Baptiste. If blood pressure stays elevated 140/80s restart Losartan. - Discharge Plan *PRESCRIPTION DRUG MONITORING PROGRAM REVIEWED*: Yes *COPY OF PRESCRIPTION DRUG MONITORING REPORT IN PATIENT DANIEL: Yes Prescriptions/Med Rec: Iron Polysaccharides Complex [Ferrex 150] 150 mg PO DAILY #60 cap Lidocaine 5% [Lidoderm 5%] 700 mg TOP Q24H PRN #15 patch PRN Reason: back pain Meclizine [Antivert] 25 mg PO DAILY PRN #20 tablet PRN Reason: Dizziness Home Medications: Home Meds Dicyclomine [Bentyl] 10 mg PO DAILY 06/09/14 [History] Levothyroxine [Levothroid] 175 mcg PO DAILY 06/09/14 [History] Omeprazole 40 mg PO BID 06/09/14 [History] Insulin Aspart [NovoLOG] 10 - 20 units SUBCUT TIDMEALS 03/09/16 [History] Nortriptyline HCl [Pamelor] 20 mg PO BEDTIME 03/09/16 [History] Calcium Carb, Citrate/Vit D3 [Calcium + D3 ER Tablet] 2 tab PO DAILY 05/29/19 [ History] Celecoxib [CeleBREX] 200 mg PO DAILY 05/29/19 [History] amLODIPine Besylate [Amlodipine Besylate] 10 tab PO BEDTIME 05/29/19 [History] Insulin Degludec [Tresiba] 80 unit SQ BEDTIME 09/03/19 [History] Meloxicam 15 mg PO DAILY 09/03/19 [History] Metoprolol Succinate 25 mg PO BEDTIME 09/03/19 [History] atorvaSTATin [Lipitor] 20 mg PO BEDTIME 09/03/19 [History] Cholecalciferol (Vitamin D3) [Vitamin D3] 25 mcg PO BEDTIME 02/04/20 [History] Docusate Sodium 200 mg PO BEDTIME 02/04/20 [History] Furosemide [Lasix] 20 mg PO DAILY PRN 02/04/20 [History] Magnesium 250 mg PO BEDTIME 02/04/20 [History] bisacodyL [Dulcolax] 5 mg PO DAILY PRN 02/04/20 [History] Dorzolamide/Timolol [Cosopt 2%-0.5% Ophth Soln] 1 drop EYEBOTH BID 02/10/20 [ History] Iron Polysaccharides Complex [Ferrex 150] 150 mg PO DAILY #60 cap 02/11/20 [Rx] Lidocaine 5% [Lidoderm 5%] 700 mg TOP Q24H PRN #15 patch 02/11/20 [Rx] Losartan [Cozaar] 50 mg PO DAILY #1 02/11/20 [Rx] Meclizine [Antivert] 25 mg PO DAILY PRN #20 tablet 02/11/20 [Rx] Oxygen Therapy Mode: Nasal Cannula Oxygen Flow Rate (L/min): 3 Patient Handouts: Meclizine tablets or capsules, Anemia, Iron tablets, capsules , extended-release tablets, Acute Respiratory Failure, Adult, Lidocaine dermal patch Referrals: [facility] [Outside] Sanya Cisneros MD [Physician] - 03/25/20 11:00 am Sheridan Jean-Baptiste MD [Physician] - 02/27/20 2:30 pm Seema Celis MD [Ordering Only Provider] - 04/23/20 9:30 am (Breathing Test at 9:[address] Celis at 10:40 AM) - Discharge Summary/Plan Comment DC Time >30 min.: Yes Discharge Summary/Plan Comment: Admitting Diagnoses: Acute on chronic hypoxic respiratory failure Suspected CAP Suspected URI Severe TREVOR Discharge Diagnoses: Acute on chronic hypoxic respiratory failure- resolved Suspected CAP/URI Severe TREVOR Other PMH Paralyzed R diaphragm Diastolic dysfunction PATSY with CPAP on O2 Oxygen dependent 3 L NC Shelly was admitted for acute on chronic hypoxic respiratory failure, no clear evidence of pneumonia noted, but with severe symptoms, she was placed on Levaquin. She was tested for influenza, which was negative as well as COVID, which returned negative. She was placed on Bipap initially due to high oxygen needs. She tolerated this well and over the next several day she was weaned from HFNC to normal 3 L NC. During this time I did speak with Jonna Mohan, [employer] with Dr Celis and pulmonology in [place]. Respiratory panel was recommended, which returned negative. Solumedrol was started which helped and continued for 4 days. Low suspicion for PE, with renal function unable to get CTA of chest, lower extremity US negative for DVTs. She was also noted to have significant anemia during stay with low iron, she was transfused 2 units pRBCs, heme negative stools. She reports she has not been eating well at home, "just not hungry and staying away from proteins". IV venofer 400 mg given, Started on PO supplementation as well. Will need outpatient endoscopy, she was counseled on this. Currently all elective surgeries on hold due to world situation. Will allow PCP to follow up with arrange outpatient visit with general surgeon for follow up. Hgb today 10.5. She is eating better Also continues to have dizziness, which is intermittent. PT ordered, no suspicion for BPPV. Linking this to deconditioning. She is in need of home Health and PT to evaluate there. meclizine helped intermittently which she can take PRN at home. She is to watch BP at home as well. Holding Losartan for now, and likely to restart with visit to PCP in [place] to improved. she was instructed to watch BP at home and monitor, keep log for follow up with PCP. CPAP from home brought in and found to not be working correctly, this cpap is in need of repair/replacement. [employer] provided one for home use now and will educate her on this use. Due to diastolic dysfunction and pleural effusions, will arrange follow up with Cardiology as an outpatient. Along with pulmonology in [place]. She is to return to ED or clinic if concerns should arise. She has completed course of Levaquin inpatient, no further needed on discharge. She was sent with Lidocaine patch for back pain, stopping her Mobic and Celebrex due to anemia and history of Ulcers. Continue to Take omeprazole BID. - Patient Data Vitals - Most Recent: Last Vital Signs Temp 96.8 F L 02/11/20 06:01 Pulse 80 02/11/20 08:02 Resp 16 02/11/20 06:01 BP 130/55 L 02/11/20 08:02 Pulse Ox 98 02/11/20 06:01 Weight - Most Recent: 87.679 kg I&O - Last 24 hours: Intake & Output 02/10/20 02/11/20 02/11/20 22:59 06:59 14:59 Intake Total 1040 550 Output Total 1375 400 Balance -335 150 Lab Results - Last 24 hrs: Laboratory Results - last 24 hr 02/10/20 02/10/20 02/10/20 Range/Units 12:31 16:50 22:16 WBC (4.0-11.0) K/uL RBC (4.30-5.90) M/uL Hgb (12.0-16.0) g/dL Hct (36.0-46.0) % MCV (80.0-98.0) fL MCH (27.0-32.0) pg MCHC (31.0-37.0) g/dL RDW Std Deviation (28.0-62.0) fl RDW Coeff of Rajeev (11.0-15.0) % Plt Count (150-400) K/uL Neut % (Auto) (48.0-80.0) % Lymph % (Auto) (16.0-40.0) % [place] % (Auto) (0.0-15.0) % Eos % (Auto) (0.0-7.0) % Baso % (Auto) (0.0-1.5) % Neut # (Auto) (1.4-5.7) K/uL Lymph # (Auto) (0.6-2.4) K/uL [place] # (Auto) (0.0-0.8) K/uL Eos # (Auto) (0.0-0.7) K/uL Baso # (Auto) (0.0-0.1) K/uL Nucleated RBC % /100WBC Nucleated RBCs # K/uL Sodium (136-145) mmol/L Potassium (3.5-5.1) mmol/L Chloride (98-107) mmol/L Carbon Dioxide (21.0-32.0) mmol/L BUN (7.0-18.0) mg/dL Creatinine (0.6-1.0) mg/dL Est Cr Clr Drug Dosing mL/min Estimated GFR (MDRD) ml/min Glucose (74-106) mg/dL POC Glucose 228 H 208 H 202 H (60-110) mg/dL Calcium (8.5-10.1) mg/dL 02/11/20 02/11/20 02/11/20 Range/Units 05:08 05:08 06:33 WBC 7.39 (4.0-11.0) K/uL RBC 5.23 (4.30-5.90) M/uL Hgb 10.5 L (12.0-16.0) g/dL Hct 36.6 (36.0-46.0) % MCV 70.0 L (80.0-98.0) fL MCH 20.1 L (27.0-32.0) pg MCHC 28.7 L (31.0-37.0) g/dL RDW Std Deviation 63.3 H (28.0-62.0) fl RDW Coeff of Rajeev 27 H (11.0-15.0) % Plt Count 159 (150-400) K/uL Neut % (Auto) 64.9 (48.0-80.0) % Lymph % (Auto) 21.4 (16.0-40.0) % [place] % (Auto) 12.4 (0.0-15.0) % Eos % (Auto) 1.2 (0.0-7.0) % Baso % (Auto) 0.1 (0.0-1.5) % Neut # (Auto) 4.8 (1.4-5.7) K/uL Lymph # (Auto) 1.6 (0.6-2.4) K/uL [place] # (Auto) 0.9 H (0.0-0.8) K/uL Eos # (Auto) 0.1 (0.0-0.7) K/uL Baso # (Auto) 0.0 (0.0-0.1) K/uL Nucleated RBC % 0.0 /100WBC Nucleated RBCs # 0 K/uL Sodium 142 (136-145) mmol/L Potassium 3.8 (3.5-5.1) mmol/L Chloride 102 (98-107) mmol/L Carbon Dioxide 35.2 H (21.0-32.0) mmol/L BUN 24 H (7.0-18.0) mg/dL Creatinine 1.2 H (0.6-1.0) mg/dL Est Cr Clr Drug Dosing 31.98 mL/min Estimated GFR (MDRD) 44.2 ml/min Glucose 132 H (74-106) mg/dL POC Glucose 124 H (60-110) mg/dL Calcium 9.0 (8.5-10.1) mg/dL Med Orders - Current: Current Medications Acetaminophen (Tylenol) 650 mg PO Q4H PRN PRN Reason: Pain (Mild 1-3)/fever Last Admin: 02/07/20 01:15 Dose: 650 mg Albuterol (Proventil Neb Soln) 2.5 mg NEB Q4H VI Last Admin: 02/11/20 09:53 Dose: 2.5 mg Atorvastatin Calcium (Lipitor) 20 mg PO BEDTIME VI Last Admin: 02/10/20 22:06 Dose: 20 mg Bisacodyl (Dulcolax) 10 mg RECTAL DAILY PRN PRN Reason: Constipation Last Admin: 02/06/20 09:35 Dose: 10 mg Cholecalciferol (Vitamin D3) 25 mcg PO BEDTIME VI Last Admin: 02/10/20 22:07 Dose: 25 mcg Furosemide (Lasix) 20 mg PO DAILY PRN PRN Reason: swelling Last Admin: 02/10/20 10:29 Dose: 20 mg Insulin Aspart (Novolog) 0 unit SUBCUT TIDAC COUNT INCLUDES THE [facility]; Protocol Last Admin: 02/11/20 07:54 Dose: Not Given Insulin Glargine (Lantus Solostar) 10 units SUBCUT BEDTIME COUNT INCLUDES THE [facility] Last Admin: 02/10/20 22:18 Dose: 10 units Levofloxacin (Levaquin) 750 mg PO Q48H COUNT INCLUDES THE [facility] Levothyroxine Sodium (Levothyroxine) 150 mcg PO ACBREAKFAST COUNT INCLUDES THE [facility] Last Admin: 02/11/20 07:58 Dose: 150 mcg Levothyroxine Sodium (Levothyroxine) 25 mcg PO ACBREAKFAST COUNT INCLUDES THE [facility] Last Admin: 02/11/20 08:01 Dose: 25 mcg Lidocaine (Lidoderm 5%) 700 mg TOP Q24H COUNT INCLUDES THE [facility] Last Admin: 02/11/20 03:00 Dose: 700 mg Meclizine HCl (Antivert) 25 mg PO DAILY PRN PRN Reason: Dizziness Last Admin: 02/09/20 18:47 Dose: 25 mg Melatonin (Melatonin) 6 mg PO BEDTIME PRN PRN Reason: Sleep Last Admin: 02/08/20 23:15 Dose: 6 mg Metoclopramide HCl (Reglan) 10 mg IVPUSH Q6H PRN PRN Reason: Nausea Last Admin: 02/05/20 11:40 Dose: 10 mg Metoprolol Succinate (Toprol Xl) 25 mg PO DAILY COUNT INCLUDES THE [facility] Last Admin: 02/11/20 08:02 Dose: 25 mg Nortriptyline HCl (Nortriptyline) 20 mg PO BEDTIME COUNT INCLUDES THE [facility] Last Admin: 02/10/20 22:06 Dose: 20 mg Omeprazole (Omeprazole) 40 mg PO BID COUNT INCLUDES THE [facility] Last Admin: 02/11/20 08:03 Dose: 40 mg Ondansetron HCl (Zofran) 4 mg IVPUSH Q4H PRN PRN Reason: Nausea Last Admin: 02/05/20 09:03 Dose: 4 mg Polysaccharide Iron Complex (Ferrex 150) 150 mg PO DAILY COUNT INCLUDES THE [facility] Last Admin: 02/11/20 08:01 Dose: 150 mg Prednisone (Prednisone) 40 mg PO WITHBREAKFAST COUNT INCLUDES THE [facility] Last Admin: 02/11/20 08:01 Dose: 40 mg Discontinued Medications Albuterol (Proventil Neb Soln) 2.5 mg NEB Q4H COUNT INCLUDES THE [facility] Last Admin: 02/07/20 20:01 Dose: Not Given Albuterol/Ipratropium (Duoneb 3.0-0.5 Mg/3 Ml) 3 ml NEB ONETIME ONE Stop: 02/04/20 08:13 Last Admin: 02/04/20 08:23 Dose: 3 ml Albuterol/Ipratropium (Duoneb 3.0-0.5 Mg/3 Ml) Confirm Administered Dose 6 ml .ROUTE .STK-MED ONE Stop: 02/04/20 08:12 Last Admin: 02/04/20 08:35 Dose: Not Given Albuterol/Ipratropium (Duoneb 3.0-0.5 Mg/3 Ml) 3 ml NEB Q4HRRT COUNT INCLUDES THE [facility] Last Admin: 02/07/20 09:41 Dose: 3 ml Al Hydroxide/Mg Hydroxide 15 (ml/ Lidocaine HCl 5 ml) 0 ml PO ONETIME ONE Stop: 02/05/20 12:27 Last Admin: 02/05/20 13:12 Dose: 1 each Dicyclomine HCl (Bentyl) 10 mg PO DAILY COUNT INCLUDES THE [facility] Last Admin: 02/05/20 10:37 Dose: Not Given Diphenhydramine HCl (Benadryl) 25 mg PO ONETIME ONE Stop: 02/10/20 11:13 Last Admin: 02/10/20 11:36 Dose: 25 mg Furosemide (Lasix) 40 mg IVPUSH NOW ONE Stop: 02/04/20 09:37 Last Admin: 02/04/20 10:47 Dose: 40 mg Furosemide (Lasix) 40 mg IVPUSH BID COUNT INCLUDES THE [facility] Last Admin: 02/04/20 20:39 Dose: 40 mg Furosemide (Lasix) 20 mg IVPUSH NOW ONE Stop: 02/05/20 20:32 Last Admin: 02/06/20 03:50 Dose: Not Given Furosemide (Lasix) 20 mg IVPUSH ONETIME ONE Stop: 02/07/20 10:06 Last Admin: 02/07/20 10:45 Dose: 20 mg Magnesium Sulfate 2 gm/ Premix 50 mls @ 50 mls/hr IV ONETIME ONE Stop: 02/04/20 09:11 Last Admin: 02/04/20 08:35 Dose: Not Given Magnesium Sulfate 1 gm/ Sodium (Chloride) 52 mls @ 104 mls/hr IV ONETIME ONE Stop: 02/04/20 08:59 Last Admin: 02/04/20 08:40 Dose: 104 mls/hr Levofloxacin/Dextrose 750 mg/ (Premix) 150 mls @ 100 mls/hr IV Q24H COUNT INCLUDES THE [facility] Last Infusion: 02/04/20 11:10 Dose: 50 mls/hr Pantoprazole Sodium 40 mg/ (Sodium Chloride) 10 mls @ 300 mls/hr IV Q12H COUNT INCLUDES THE [facility] Last Admin: 02/09/20 11:22 Dose: 300 mls/hr Iron Sucrose 200 mg/ Sodium (Chloride) 110 mls @ 400 mls/hr IV ONETIME ONE Stop: 02/04/20 12:40 Last Admin: 02/04/20 16:41 Dose: Not Given Levofloxacin/Dextrose 750 mg/ (Premix) 150 mls @ 100 mls/hr IV Q48H COUNT INCLUDES THE [facility] Last Admin: 02/10/20 10:30 Dose: 100 mls/hr Iron Sucrose 200 mg/ Sodium (Chloride) 110 mls @ 220 mls/hr IV ONETIME ONE Stop: 02/04/20 15:19 Last Admin: 02/04/20 16:39 Dose: 220 mls/hr Sodium Chloride (Normal Saline) 250 mls @ 500 mls/hr IV ASDIRECTED COUNT INCLUDES THE [facility] Last Admin: 02/05/20 06:39 Dose: 500 mls/hr Sodium Chloride (Normal Saline) 250 mls @ 500 mls/hr IV ASDIRECTED COUNT INCLUDES THE [facility] Iron Sucrose 200 mg/ Sodium (Chloride) 110 mls @ 220 mls/hr IV ONETIME ONE Stop: 02/05/20 15:29 Last Admin: 02/05/20 15:57 Dose: 220 mls/hr Magnesium Sulfate 2 gm/ Premix 50 mls @ 50 mls/hr IV ONETIME ONE Stop: 02/09/20 13:01 Last Admin: 02/09/20 12:44 Dose: 50 mls/hr Lidocaine (Lidoderm 5%) 700 mg TOP ONETIME ONE Stop: 02/06/20 02:06 Last Admin: 02/06/20 02:14 Dose: 700 mg Methylprednisolone Sodium Succinate (Solu-Medrol) 125 mg IVPUSH ONETIME ONE Stop: 02/04/20 08:14 Last Admin: 02/04/20 08:40 Dose: 125 mg Methylprednisolone Sodium Succinate (Solu-Medrol) 40 mg IV DAILY COUNT INCLUDES THE [facility] Last Admin: 02/10/20 08:58 Dose: 40 mg Miscellaneous Information (Remove Patch) 1 ea TRDERM ONETIME ONE Stop: 02/06/20 14:06 Last Admin: 02/06/20 14:00 Dose: 1 ea Naproxen (Naproxen Sodium) 440 mg PO ONETIME VI Stop: 02/04/20 23:59 Ondansetron HCl (Zofran) Confirm Administered Dose 4 mg .ROUTE .STK-MED ONE Stop: 02/04/20 11:31 Last Admin: 02/04/20 11:36 Dose: Not Given Ondansetron HCl (Zofran) 4 mg IVPUSH ONETIME ONE Stop: 02/04/20 11:37 Last Admin: 02/04/20 11:37 Dose: 4 mg Wound Care/Dressing Products (Duoderm Cgf) Confirm Administered Dose 1 each .ROUTE .STK-MED ONE Stop: 02/05/20 20:48 Last Admin: 02/05/20 20:59 Dose: 1 each
[2020-02-11 15:56] VITALS: BP 174/72; PULSE 78
[2020-02-12] MEDS ORDERED: Levofloxacin 500 MG Tab PO SCH (09:00)
== END 2020-02-11 05:50 | disposition home health service (06) | DRG 291 ==
LOC: MW.ED 08:06 → MW.ICU 10:40 → UNDOADMIN 10:40 → MW.ICU 10:41 → MW.MS 02-10 19:20
PROVIDERS: ADMIT Internal Medicine; ATTEND Internal Medicine
PROC: 5A09457 Assistance with Respiratory Ventilation, 24-96 Consecutive Hours, Continuous Positive Airway Pressure (ICD-10-PCS; principal; 2020-02-04)
PROC: 30233N1 Transfusion of Nonautologous Red Blood Cells into Peripheral Vein, Percutaneous Approach (ICD-10-PCS; 2020-02-05)
DX: J44.1 Chronic obstructive pulmonary disease with (acute) exacerbation (principal); I13.0 Hypertensive heart and chronic kidney disease with heart failure and stage 1 through stage 4 chronic kidney disease, or unspecified chronic kidney disease; I50.9 Heart failure, unspecified; R09.02 Hypoxemia; J96.21 Acute and chronic respiratory failure with hypoxia; G47.30 Sleep apnea, unspecified; I50.33 Acute on chronic diastolic (congestive) heart failure; N17.9 Acute kidney failure, unspecified; G47.33 Obstructive sleep apnea (adult) (pediatric); E03.9 Hypothyroidism, unspecified; J98.6 Disorders of diaphragm; K58.9 Irritable bowel syndrome, unspecified; H54.7 Unspecified visual loss; E78.00 Pure hypercholesterolemia, unspecified; Z88.6 Allergy status to analgesic agent; E66.9 Obesity, unspecified; K21.9 Gastro-esophageal reflux disease without esophagitis; K44.9 Diaphragmatic hernia without obstruction or gangrene; E11.22 Type 2 diabetes mellitus with diabetic chronic kidney disease; N18.9 Chronic kidney disease, unspecified; D50.9 Iron deficiency anemia, unspecified; M19.90 Unspecified osteoarthritis, unspecified site; M17.0 Bilateral primary osteoarthritis of knee; G89.29 Other chronic pain; M54.9 Dorsalgia, unspecified; Z99.81 Dependence on supplemental oxygen; Z91.048 Other nonmedicinal substance allergy status; Z88.5 Allergy status to narcotic agent; Z91.09 Other allergy status, other than to drugs and biological substances; Z79.890 Hormone replacement therapy; Z79.899 Other long term (current) drug therapy; Z79.4 Long term (current) use of insulin; Z90.89 Acquired absence of other organs; Z90.710 Acquired absence of both cervix and uterus; Z87.891 Personal history of nicotine dependence; Z68.36 Body mass index [BMI] 36.0-36.9, adult
CPT/HCPCS: 36600; 71045; 80053; 82607; 82728; 82746; 82803; 82962; 83550; 83735; 83880; 84484; 85025; 85045; 87804 ×2; 88104; 93005; 94640; 96365; 96375; 99285; J2930; J3475; J7050; U0001; 36415; 36430; 71250; 71250-26; 80048; 81003; 82272; 84100; 86850; 86900; 86901; 86920; 86921; 86922; 87486; 87581; 87632; 87798; 93306; 93970; 93970-26; 94660; 94667; 97110-GP; 97161-GP; A9270-GY; C9113; J1756; J1815-GY; J1940; J1956; J2405; J2765; J2920; J7620-GY; P9016

== ENCOUNTER 2020-06-15 22:23 | Observation (INO) | payer MEDICARE ==
--- NOTE | 2020-06-15 22:57 | EDM.PDOC ---
ED HPI GENERAL MEDICAL PROBLEM - General Chief Complaint: Diabetic Complaint Stated Complaint: INCORRECT INSULIN TAKEN Time Seen by Provider: 06/15/20 22:40 Source of Information: Reports: Patient History Limitations: Reports: No Limitations - History of Present Illness INITIAL COMMENTS - FREE TEXT/NARRATIVE: 74-year-old female with history of type 2 diabetes presents with accidental NovoLog overdose. She normally takes NovoLog 3 times daily 32 to 34 units, Tresiba 74 units at night. Tonight she accidentally gave herself 74 units of NovoLog 15 minutes prior to arrival. She felt flushed. She denies changes in mentation, chest pain, shortness of breath, lightheadedness. ROS: A 10-point review of systems, other than pertinent positives and negatives as stated per HPI, is otherwise negative Past medical history: No additional pertinent history Past Surgical history: No additional pertinent history Social history: No additional pertinent history Family history: No additional pertinent history PHYSICAL EXAM General: AOx4, GCS = 15,anxious HEENT: dry mucous membrane Neck: supple, no meningismus, no Kernig or Brudzinski Cardiac: S1S2 RRR Respiratory: CTAB, no crackles or rales, no wheezing Abdomen: Soft, nontender, no rebound or guarding, nondistended, no pulsatile mass. Back: nontender Musculoskeletal: NVI distally, no deformity Neuro: No focal deficits - Related Data Allergies Allergy/AdvReac Type Severity Reaction Status Date / Time adhesive tape Allergy Rash Verified 06/15/20 23:12 prochlorperazine AdvReac Severe Vomiting Verified 06/15/20 23:12 hydrocodone AdvReac Vomiting Verified 06/15/20 23:12 oxycodone [Oxycodone] AdvReac Vomiting Verified 06/15/20 23:12 Tape Allergy Mild Itching Uncoded 06/15/20 23:12 Home Meds: Home Meds Dicyclomine [Bentyl] 10 mg PO DAILY 06/09/14 [History] Levothyroxine [Levothroid] 175 mcg PO DAILY 06/09/14 [History] Omeprazole 40 mg PO BID 06/09/14 [History] Insulin Aspart [NovoLOG] 10 - 20 units SUBCUT TIDMEALS 03/09/16 [History] Nortriptyline HCl [Pamelor] 20 mg PO BEDTIME 03/09/16 [History] Calcium Carb, Citrate/Vit D3 [Calcium + D3 ER Tablet] 2 tab PO DAILY 05/29/19 [History] Celecoxib [CeleBREX] 200 mg PO DAILY 05/29/19 [History] amLODIPine Besylate [Amlodipine Besylate] 10 tab PO BEDTIME 05/29/19 [History] Insulin Degludec [Tresiba] 80 unit SQ BEDTIME 09/03/19 [History] Meloxicam 15 mg PO DAILY 09/03/19 [History] Metoprolol Succinate 25 mg PO BEDTIME 09/03/19 [History] atorvaSTATin [Lipitor] 20 mg PO BEDTIME 09/03/19 [History] Cholecalciferol (Vitamin D3) [Vitamin D3] 25 mcg PO BEDTIME 02/04/20 [History] Docusate Sodium 200 mg PO BEDTIME 02/04/20 [History] Furosemide [Lasix] 20 mg PO DAILY PRN 02/04/20 [History] Magnesium 250 mg PO BEDTIME 02/04/20 [History] bisacodyL [Dulcolax] 5 mg PO DAILY PRN 02/04/20 [History] Dorzolamide/Timolol [Cosopt 2%-0.5% Ophth Soln] 1 drop EYEBOTH BID 02/10/20 [History] Iron Polysaccharides Complex [Ferrex 150] 150 mg PO DAILY #60 cap 02/11/20 [Rx] Lidocaine 5% [Lidoderm 5%] 700 mg TOP Q24H PRN #15 patch 02/11/20 [Rx] Losartan [Cozaar] 50 mg PO DAILY #1 02/11/20 [Rx] Meclizine [Antivert] 25 mg PO DAILY PRN #20 tablet 02/11/20 [Rx] Past Medical History HEENT History: Reports: Allergic Rhinitis, Impaired Vision, Other (See Below) Other HEENT History: wears glasses, has upper and lower dentures Cardiovascular History: Reports: High Cholesterol, Hypertension Respiratory History: Reports: Other (See Below), Sleep Apnea Other Respiratory History: PT reports only having use of half of her diaphragm due to a viral infection Gastrointestinal History: Reports: GERD, Hiatal Hernia, Irritable Bowel Syndrome Genitourinary History: Reports: None CLAIMS DIRECTOR History: Reports: None Musculoskeletal History: Reports: Arthritis, Fracture Other Musculoskeletal History: has arthritis in both knees, hx of fx both wrists Neurological History: Reports: Headaches, Chronic Other Neuro History: headaches from sinuses Psychiatric History: Reports: None Endocrine/Metabolic History: Reports: Diabetes, Type II, Hypothyroidism, Obesity/BMI 30+ Other Endocrine/Metabolic History: states 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 Hematologic History: Reports: Blood Transfusion(s) Immunologic History: Reports: None Oncologic (Cancer) History: Reports: None Dermatologic History: Reports: Other (See Below) Other Dermatologic History: has patches of dry skin - Infectious Disease History Infectious Disease History: Reports: None - Past Surgical History Head Surgeries/Procedures: Reports: None HEENT Surgical History: Reports: Naso-Sinus Surgery, Tonsillectomy Female Surgical History: Reports: Hysterectomy Musculoskeletal Surgical History: Reports: Arthroscopic Knee, Carpal Tunnel, Other (See Below) Social & Family History - Family History Family Medical History: Noncontributory - Caffeine Use Caffeine Use: Reports: Coffee, Soda ED ROS GENERAL - Review of Systems Review Of Systems: Comprehensive ROS is negative, except as noted in HPI. ED EXAM GENERAL NO PERIP PULSE - Physical Exam Exam: See Below (see dictation) Course - Vital Signs Last Recorded V/S: Last Vital Signs Temp 96.6 F L 06/15/20 22:23 Pulse 87 06/15/20 23:38 Resp 18 06/15/20 23:38 BP 142/70 H 06/15/20 23:38 Pulse Ox 99 06/15/20 23:38 - Orders/Labs/Meds Orders: Active Orders 24 hr Category Date Time Status Admission Status [Patient Status] [ADT] Stat ADT 06/16/20 01:40 Ordered COMPREHENSIVE METABOLIC PN,CMP [CHEM] Stat Lab 06/16/20 01:12 Received Dextrose 5%-0.45% NaCl [Dextrose 5%-1/2 NS] 1,000 ml Med 06/16/20 01:15 Active IV ASDIRECTED Medication Orders Dextrose/Sodium Chloride (Dextrose 5%-1/2 Ns) 1,000 mls @ 125 mls/hr IV ASDIRECTED VI Last Admin: 06/16/20 01:26 Dose: 125 mls/hr Documented by: NASREEN Labs: Laboratory Tests 06/15/20 06/15/20 06/15/20 Range/Units 22:30 22:37 23:19 WBC 9.62 (4.0-11.0) K/uL RBC 5.34 (4.30-5.90) M/uL Hgb 14.0 (12.0-16.0) g/dL Hct 43.7 (36.0-46.0) % MCV 81.8 (80.0-98.0) fL MCH 26.2 L (27.0-32.0) pg MCHC 32.0 (31.0-37.0) g/dL RDW Std Deviation 45.8 (28.0-62.0) fl RDW Coeff of Rajeev 15 (11.0-15.0) % Plt Count 254 (150-400) K/uL MPV 10.40 (7.40-12.00) fL Neut % (Auto) 65.1 (48.0-80.0) % Lymph % (Auto) 25.4 (16.0-40.0) % Warrick % (Auto) 7.4 (0.0-15.0) % Eos % (Auto) 1.9 (0.0-7.0) % Baso % (Auto) 0.2 (0.0-1.5) % Neut # (Auto) 6.3 H (1.4-5.7) K/uL Lymph # (Auto) 2.4 (0.6-2.4) K/uL Warrick # (Auto) 0.7 (0.0-0.8) K/uL Eos # (Auto) 0.2 (0.0-0.7) K/uL Baso # (Auto) 0.0 (0.0-0.1) K/uL Nucleated RBC % 0.0 /100WBC Nucleated RBCs # 0 K/uL POC Glucose 81 35 L (60-110) mg/dL 06/16/20 06/16/20 06/16/20 Range/Units 00:00 00:37 01:08 WBC (4.0-11.0) K/uL RBC (4.30-5.90) M/uL Hgb (12.0-16.0) g/dL Hct (36.0-46.0) % MCV (80.0-98.0) fL MCH (27.0-32.0) pg MCHC (31.0-37.0) g/dL RDW Std Deviation (28.0-62.0) fl RDW Coeff of Rajeev (11.0-15.0) % Plt Count (150-400) K/uL MPV (7.40-12.00) fL Neut % (Auto) (48.0-80.0) % Lymph % (Auto) (16.0-40.0) % Warrick % (Auto) (0.0-15.0) % Eos % (Auto) (0.0-7.0) % Baso % (Auto) (0.0-1.5) % Neut # (Auto) (1.4-5.7) K/uL Lymph # (Auto) (0.6-2.4) K/uL Warrick # (Auto) (0.0-0.8) K/uL Eos # (Auto) (0.0-0.7) K/uL Baso # (Auto) (0.0-0.1) K/uL Nucleated RBC % /100WBC Nucleated RBCs # K/uL POC Glucose 68 42 L 49 L (60-110) mg/dL 06/16/20 Range/Units 01:09 WBC (4.0-11.0) K/uL RBC (4.30-5.90) M/uL Hgb (12.0-16.0) g/dL Hct (36.0-46.0) % MCV (80.0-98.0) fL MCH (27.0-32.0) pg MCHC (31.0-37.0) g/dL RDW Std Deviation (28.0-62.0) fl RDW Coeff of Rajeev (11.0-15.0) % Plt Count (150-400) K/uL MPV (7.40-12.00) fL Neut % (Auto) (48.0-80.0) % Lymph % (Auto) (16.0-40.0) % Warrick % (Auto) (0.0-15.0) % Eos % (Auto) (0.0-7.0) % Baso % (Auto) (0.0-1.5) % Neut # (Auto) (1.4-5.7) K/uL Lymph # (Auto) (0.6-2.4) K/uL Warrick # (Auto) (0.0-0.8) K/uL Eos # (Auto) (0.0-0.7) K/uL Baso # (Auto) (0.0-0.1) K/uL Nucleated RBC % /100WBC Nucleated RBCs # K/uL POC Glucose 52 L (60-110) mg/dL Meds: Medications Generic Name Dose Route Start Last Admin Trade Name Freq PRN Reason Stop Dose Admin Dextrose/Sodium Chloride 1,000 mls @ 125 mls/hr 06/16/20 01:15 06/16/20 01:26 Dextrose 5%-1/2 Ns IV 125 mls/hr ASDIRECTED VI Administration Discontinued Medications Generic Name Dose Route Start Last Admin Trade Name Freq PRN Reason Stop Dose Admin Dextrose/Water Confirm 06/15/20 23:21 06/15/20 23:37 Dextrose 50% In Water Administered 06/15/20 23:22 Not Given Dose 50 ml .ROUTE .STK-MED ONE Dextrose/Water 50 ml 06/15/20 23:23 06/15/20 23:25 Dextrose 50% In Water IVPUSH 06/15/20 23:24 50 ml ONETIME ONE Administration - Re-Assessments/Exams Free Text/Narrative Re-Assessment/Exam: 06/15/20 2321: BG =35, will give 1AMP D50. 06/15/20 2351: patient eating snacks and drink OJ. 06/16/20 01:12: BG = 49, will start D5 1/2 NS at 125ml/hr and admit. 06/16/20 01:20: Case discussed with , who agrees to admit patient. The hospitalist's documentation supersedes all other documentation on this patient with regard to any conflicts or discrepancies from this point forward. Any emergency conditions have been treated to the ability of the ED prior to admission. MEDICAL DECISION MAKING: I reviewed the patients past medical records, lab and radiographic findings. I discussed the case with the patient. My differential diagnosis included: Accidental insulin ingestion. I do not suspect suicidal ideation or attempt. Patient remained hypoglycemic despite eating and drinking orange juice and given D50 in the ER. Patient needed D5 drip. Will admit for persistent Accu-Cheks. Departure - Departure Time of Disposition: 01:14 Disposition: Refer to Observation Condition: Good Clinical Impression: Hypoglycemia - Discharge Information *PRESCRIPTION DRUG MONITORING PROGRAM REVIEWED*: Not Applicable *COPY OF PRESCRIPTION DRUG MONITORING REPORT IN PATIENT DANIEL: Not Applicable Referrals: PCP,None [Primary Care Provider] - Forms: ED Department Discharge Critical Care Note - Critical Care Note Total Time (mins): 40 Comments: Critical Care: The high probability of sudden, clinically significant deterioration in the patient's condition required the highest level of my preparedness to intervene urgently. The services I provided to this patient were to treat and/or prevent clinically significant deterioration. Services included the following: chart data review, reviewing nursing notes and/or old charts, documentation time, proposal consultant collaboration regarding findings and treatment options, medication orders and management, direct patient care, vital sign assessments and ordering, interpreting and reviewing diagnostic studies/lab tests. Aggregate critical care time includes only time during which I was engaged in work directly related to the patient's care, as described above, whether at the bedside or elsewhere in the Emergency Department. It did not include time spent performing other reported procedures or the services of residents, students, nurses or physician assistants. Frequent interventions and/or frequent repeat evaluations were required as well as counseling and coordination of care regarding prognosis, treatments, and discussions with patient, staff and consultants. Critical Care (excluding other procedures): 40 minutes Sepsis Event Note (ED) - Focused Exam Vital Signs: Vital Signs Temp Pulse Resp BP Pulse Ox 06/15/20 23:38 87 18 142/70 H 99 06/15/20 22:23 96.6 F L 99 16 160/97 H 100 - My Orders Last 24 Hours: My Active Orders 06/16/20 01:12 COMPREHENSIVE METABOLIC PN,CMP [CHEM] Stat 06/16/20 01:15 Dextrose 5%-0.45% NaCl [Dextrose 5%-1/2 NS] 1,000 ml IV ASDIRECTED 06/16/20 01:40 Admission Status [Patient Status] [ADT] Stat - Assessment/Plan Last 24 Hours: My Active Orders 06/16/20 01:12 COMPREHENSIVE METABOLIC PN,CMP [CHEM] Stat 06/16/20 01:15 Dextrose 5%-0.45% NaCl [Dextrose 5%-1/2 NS] 1,000 ml IV ASDIRECTED 06/16/20 01:40 Admission Status [Patient Status] [ADT] Stat
[2020-06-15] MEDS ORDERED: 50% Dextrose in Water 50 ML Syringe ONE (23:21)
[2020-06-15] MEDS ORDERED: 50% Dextrose in Water 50 ML Syringe IVPUSH ONE (23:23)
[2020-06-16] MEDS ORDERED: Dextrose 5%-0.45% NaCl 1,000 ML IV SCH (01:15)
[2020-06-16 01:49] LABS: CARBON DIOXIDE,CO2 26.9 mmol/L (21.0-32.0)
[2020-06-16 05:40] LABS: CARBON DIOXIDE,CO2 30.3 mmol/L (21.0-32.0)
--- NOTE | 2020-06-16 11:08 | PCM.HP.2 ---
<Montrell Hathaway M - Last Filed: 06/16/20 11:58> H&P History of Present Illness - General Date of Service: 06/16/20 Admit Problem/Dx: Admission Diagnosis/Problem Admission Diagnosis/Problem Hypoglycemia Source of Information: Patient History Limitations: Reports: No Limitations - History of Present Illness Initial Comments - Free Text/Narative: 74-year-old female presented to [facility] ER after incorrectly taking her insulin. She has a PMH of DM type 2, HTN, hypothyroidism and is oxygen-dependent. Patient reports that she accidentally took too much of her short-acting insulin last night. Her usual regimen is novolog 32-34 units TID and Tresiba 74 units at bedtime. However, she accidentally took novolog 74 units. Immediately after injecting herself she realized she made a mistake and came directly to the ER. She reports that she got her insulin pens confused since they look very similar. In the ED, blood glucose was 35. She was given an amp of D50 and orange juice. Blood glucose recheck was 49 so she was started on D5 1/2 NS and admitted to [facility]. At bedside this morning, patient reports no complaints. She reports being in her normal state of health. - Related Data Allergies/Adverse Reactions: Allergies Allergy/AdvReac Type Severity Reaction Status Date / Time adhesive tape Allergy Rash Verified 06/16/20 03:59 prochlorperazine AdvReac Severe Vomiting Verified 06/16/20 03:59 hydrocodone AdvReac Vomiting Verified 06/16/20 03:59 oxycodone [Oxycodone] AdvReac Vomiting Verified 06/16/20 03:59 Tape Allergy Mild Itching Uncoded 06/16/20 04:01 Home Medications: Home Meds Dicyclomine [Bentyl] 10 mg PO DAILY 06/09/14 [History] Levothyroxine [Levothroid] 175 mcg PO DAILY 06/09/14 [History] Omeprazole 40 mg PO DAILY 06/09/14 [History] Insulin Aspart [NovoLOG] 10 - 20 units SUBCUT TIDMEALS 03/09/16 [History] Nortriptyline HCl [Pamelor] 10 mg PO BEDTIME 03/09/16 [History] Calcium Carb, Citrate/Vit D3 [Calcium + D3 ER Tablet] 2 tab PO DAILY 05/29/19 [History] Celecoxib [CeleBREX] 200 mg PO DAILY 05/29/19 [History] amLODIPine Besylate [Amlodipine Besylate] 10 mg PO BEDTIME 05/29/19 [History] Insulin Degludec [Tresiba] 80 unit SQ BEDTIME 09/03/19 [History] Meloxicam 15 mg PO DAILY 09/03/19 [History] Metoprolol Succinate 25 mg PO BEDTIME 09/03/19 [History] atorvaSTATin [Lipitor] 20 mg PO BEDTIME 09/03/19 [History] Cholecalciferol (Vitamin D3) [Vitamin D3] 25 mcg PO BEDTIME 02/04/20 [History] Docusate Sodium 200 mg PO BEDTIME 02/04/20 [History] Furosemide [Lasix] 40 mg PO DAILY PRN 02/04/20 [History] Magnesium 500 mg PO BEDTIME 02/04/20 [History] bisacodyL [Dulcolax] 5 mg PO DAILY PRN 02/04/20 [History] Dorzolamide/Timolol [Cosopt 2%-0.5% Ophth Soln] 1 drop EYEBOTH BID 02/10/20 [History] Iron Polysaccharides Complex [Ferrex 150] 150 mg PO DAILY #60 cap 02/11/20 [Rx] Lidocaine 5% [Lidoderm 5%] 700 mg TOP Q24H PRN #15 patch 02/11/20 [Rx] Losartan [Cozaar] 50 mg PO DAILY #1 02/11/20 [Rx] Meclizine [Antivert] 25 mg PO DAILY PRN #20 tablet 02/11/20 [Rx] Past Medical History HEENT History: Reports: Allergic Rhinitis, Impaired Vision, Other (See Below) Other HEENT History: wears glasses, has upper and lower dentures Cardiovascular History: Reports: High Cholesterol, Hypertension Respiratory History: Reports: Sleep Apnea, Other (See Below) Other Respiratory History: PT reports only having use of half of her diaphragm due to a viral infection. O2 dependent Gastrointestinal History: Reports: GERD, Hiatal Hernia, Irritable Bowel Syndrome Genitourinary History: Reports: None ENVELOPE FOLDER History: Reports: None Musculoskeletal History: Reports: Arthritis, Fracture Other Musculoskeletal History: has arthritis in both knees, hx of fx both wrists Neurological History: Reports: Headaches, Chronic Other Neuro History: headaches from sinuses Psychiatric History: Reports: None Endocrine/Metabolic History: Reports: Diabetes, Type II, Hypothyroidism, Obesity/BMI 30+ Other Endocrine/Metabolic History: states 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 Hematologic History: Reports: Blood Transfusion(s) Immunologic History: Reports: None Oncologic (Cancer) History: Reports: None Dermatologic History: Reports: Other (See Below) Other Dermatologic History: has patches of dry skin - Infectious Disease History Infectious Disease History: Reports: None - Past Surgical History Head Surgeries/Procedures: Reports: None HEENT Surgical History: Reports: Naso-Sinus Surgery, Tonsillectomy Female Surgical History: Reports: Hysterectomy Musculoskeletal Surgical History: Reports: Arthroscopic Knee, Carpal Tunnel, Other (See Below) Social & Family History - Family History Family Medical History: Noncontributory - Tobacco Use Smoking Status *Q: Former Smoker Years of Tobacco use: 25 Packs/Tins Daily: 1 Used Tobacco, but Quit: Yes Month/Year Tobacco Last Used: 1989 Second Hand Smoke Exposure: No - Caffeine Use Caffeine Use: Reports: None - Recreational Drug Use Recreational Drug Use: No H&P Review of Systems - Review of Systems: Review Of Systems: Comprehensive ROS is negative, except as noted in HPI. Exam - Exam Exam: See Below - Vital Signs Vital Signs: Last Vital Signs Temp 36.4 C 06/16/20 08:00 Pulse 71 06/16/20 08:00 Resp 16 06/16/20 08:00 BP 122/64 06/16/20 08:00 Pulse Ox 92 L 06/16/20 08:00 Weight: 85.457 kg - Exam General: Alert, Oriented, Cooperative HEENT: Conjunctiva Clear, EOMI, Hearing Intact, Mucosa Moist & [place] Neck: Supple, Trachea Midline Lungs: Clear to Auscultation, Normal Respiratory Effort Cardiovascular: Regular Rate, Regular Rhythm GI/Abdominal Exam: Normal Bowel Sounds, Soft, Non-Tender, No Distention Extremities: Normal Inspection, No Pedal Edema Peripheral Pulses: 2+: Radial (L), Radial (R) Skin: Warm, Dry, Intact Neurological: Cranial Nerves Intact, Strength Equal Bilateral, Normal Speech, Normal Tone Neuro Extensive - Mental Status: Alert, Oriented x3, Normal Mood/Affect Neuro Extensive - Motor, Sensory, Reflexes: CN II-XII Intact Psychiatric: Alert, Normal Affect, Normal Mood - Patient Data Lab Results Last 24 hrs: Laboratory Results - last 24 hr 06/15/20 06/15/20 06/15/20 Range/Units 22:30 22:30 22:37 WBC 9.62 (4.0-11.0) K/uL RBC 5.34 (4.30-5.90) M/uL Hgb 14.0 (12.0-16.0) g/dL Hct 43.7 (36.0-46.0) % MCV 81.8 (80.0-98.0) fL MCH 26.2 L (27.0-32.0) pg MCHC 32.0 (31.0-37.0) g/dL RDW Std Deviation 45.8 (28.0-62.0) fl RDW Coeff of Rajeev 15 (11.0-15.0) % Plt Count 254 (150-400) K/uL MPV 10.40 (7.40-12.00) fL Neut % (Auto) 65.1 (48.0-80.0) % Lymph % (Auto) 25.4 (16.0-40.0) % Reagan % (Auto) 7.4 (0.0-15.0) % Eos % (Auto) 1.9 (0.0-7.0) % Baso % (Auto) 0.2 (0.0-1.5) % Neut # (Auto) 6.3 H (1.4-5.7) K/uL Lymph # (Auto) 2.4 (0.6-2.4) K/uL Reagan # (Auto) 0.7 (0.0-0.8) K/uL Eos # (Auto) 0.2 (0.0-0.7) K/uL Baso # (Auto) 0.0 (0.0-0.1) K/uL Nucleated RBC % 0.0 /100WBC Nucleated RBCs # 0 K/uL Sodium 143 (136-145) mmol/L Potassium 4.0 (3.5-5.1) mmol/L Chloride 103 (98-107) mmol/L Carbon Dioxide 26.9 (21.0-32.0) mmol/L BUN 23 H (7.0-18.0) mg/dL Creatinine 1.9 H (0.6-1.0) mg/dL Est Cr Clr Drug Dosing 19.22 mL/min Estimated GFR (MDRD) 26.0 ml/min Glucose 94 (74-106) mg/dL POC Glucose 81 (60-110) mg/dL Calcium 8.5 (8.5-10.1) mg/dL Total Bilirubin 0.7 (0.2-1.0) mg/dL AST 33 (15-37) IU/L ALT 34 (14-63) IU/L Alkaline Phosphatase 120 H (46-116) U/L Total Protein 7.6 (6.4-8.2) g/dL Albumin 3.9 (3.4-5.0) g/dL Globulin 3.7 (2.6-4.0) g/dL Albumin/Globulin Ratio 1.1 (0.9-1.6) COVID-19 (DANIELA) (NEGATIVE) 06/15/20 06/16/20 06/16/20 Range/Units 23:19 00:00 00:37 WBC (4.0-11.0) K/uL RBC (4.30-5.90) M/uL Hgb (12.0-16.0) g/dL Hct (36.0-46.0) % MCV (80.0-98.0) fL MCH (27.0-32.0) pg MCHC (31.0-37.0) g/dL RDW Std Deviation (28.0-62.0) fl RDW Coeff of Rajeev (11.0-15.0) % Plt Count (150-400) K/uL MPV (7.40-12.00) fL Neut % (Auto) (48.0-80.0) % Lymph % (Auto) (16.0-40.0) % Reagan % (Auto) (0.0-15.0) % Eos % (Auto) (0.0-7.0) % Baso % (Auto) (0.0-1.5) % Neut # (Auto) (1.4-5.7) K/uL Lymph # (Auto) (0.6-2.4) K/uL Reagan # (Auto) (0.0-0.8) K/uL Eos # (Auto) (0.0-0.7) K/uL Baso # (Auto) (0.0-0.1) K/uL Nucleated RBC % /100WBC Nucleated RBCs # K/uL Sodium (136-145) mmol/L Potassium (3.5-5.1) mmol/L Chloride (98-107) mmol/L Carbon Dioxide (21.0-32.0) mmol/L BUN (7.0-18.0) mg/dL Creatinine (0.6-1.0) mg/dL Est Cr Clr Drug Dosing mL/min Estimated GFR (MDRD) ml/min Glucose (74-106) mg/dL POC Glucose 35 L 68 42 L (60-110) mg/dL Calcium (8.5-10.1) mg/dL Total Bilirubin (0.2-1.0) mg/dL AST (15-37) IU/L ALT (14-63) IU/L Alkaline Phosphatase (46-116) U/L Total Protein (6.4-8.2) g/dL Albumin (3.4-5.0) g/dL Globulin (2.6-4.0) g/dL Albumin/Globulin Ratio (0.9-1.6) COVID-19 (DANIELA) (NEGATIVE) 06/16/20 06/16/20 06/16/20 Range/Units 01:08 01:09 02:29 WBC (4.0-11.0) K/uL RBC (4.30-5.90) M/uL Hgb (12.0-16.0) g/dL Hct (36.0-46.0) % MCV (80.0-98.0) fL MCH (27.0-32.0) pg MCHC (31.0-37.0) g/dL RDW Std Deviation (28.0-62.0) fl RDW Coeff of Rajeev (11.0-15.0) % Plt Count (150-400) K/uL MPV (7.40-12.00) fL Neut % (Auto) (48.0-80.0) % Lymph % (Auto) (16.0-40.0) % Reagan % (Auto) (0.0-15.0) % Eos % (Auto) (0.0-7.0) % Baso % (Auto) (0.0-1.5) % Neut # (Auto) (1.4-5.7) K/uL Lymph # (Auto) (0.6-2.4) K/uL Reagan # (Auto) (0.0-0.8) K/uL Eos # (Auto) (0.0-0.7) K/uL Baso # (Auto) (0.0-0.1) K/uL Nucleated RBC % /100WBC Nucleated RBCs # K/uL Sodium (136-145) mmol/L Potassium (3.5-5.1) mmol/L Chloride (98-107) mmol/L Carbon Dioxide (21.0-32.0) mmol/L BUN (7.0-18.0) mg/dL Creatinine (0.6-1.0) mg/dL Est Cr Clr Drug Dosing mL/min Estimated GFR (MDRD) ml/min Glucose (74-106) mg/dL POC Glucose 49 L 52 L 67 (60-110) mg/dL Calcium (8.5-10.1) mg/dL Total Bilirubin (0.2-1.0) mg/dL AST (15-37) IU/L ALT (14-63) IU/L Alkaline Phosphatase (46-116) U/L Total Protein (6.4-8.2) g/dL Albumin (3.4-5.0) g/dL Globulin (2.6-4.0) g/dL Albumin/Globulin Ratio (0.9-1.6) COVID-19 (DANIELA) (NEGATIVE) 06/16/20 06/16/20 06/16/20 Range/Units 02:45 03:33 04:21 WBC (4.0-11.0) K/uL RBC (4.30-5.90) M/uL Hgb (12.0-16.0) g/dL Hct (36.0-46.0) % MCV (80.0-98.0) fL MCH (27.0-32.0) pg MCHC (31.0-37.0) g/dL RDW Std Deviation (28.0-62.0) fl RDW Coeff of Rajeev (11.0-15.0) % Plt Count (150-400) K/uL MPV (7.40-12.00) fL Neut % (Auto) (48.0-80.0) % Lymph % (Auto) (16.0-40.0) % Reagan % (Auto) (0.0-15.0) % Eos % (Auto) (0.0-7.0) % Baso % (Auto) (0.0-1.5) % Neut # (Auto) (1.4-5.7) K/uL Lymph # (Auto) (0.6-2.4) K/uL Reagan # (Auto) (0.0-0.8) K/uL Eos # (Auto) (0.0-0.7) K/uL Baso # (Auto) (0.0-0.1) K/uL Nucleated RBC % /100WBC Nucleated RBCs # K/uL Sodium (136-145) mmol/L Potassium (3.5-5.1) mmol/L Chloride (98-107) mmol/L Carbon Dioxide (21.0-32.0) mmol/L BUN (7.0-18.0) mg/dL Creatinine (0.6-1.0) mg/dL Est Cr Clr Drug Dosing mL/min Estimated GFR (MDRD) ml/min Glucose (74-106) mg/dL POC Glucose 70 67 (60-110) mg/dL Calcium (8.5-10.1) mg/dL Total Bilirubin (0.2-1.0) mg/dL AST (15-37) IU/L ALT (14-63) IU/L Alkaline Phosphatase (46-116) U/L Total Protein (6.4-8.2) g/dL Albumin (3.4-5.0) g/dL Globulin (2.6-4.0) g/dL Albumin/Globulin Ratio (0.9-1.6) COVID-19 (DANIELA) NEGATIVE (NEGATIVE) 06/16/20 06/16/20 06/16/20 Range/Units 05:08 05:09 05:09 WBC 8.09 (4.0-11.0) K/uL RBC 4.94 (4.30-5.90) M/uL Hgb 12.5 (12.0-16.0) g/dL Hct 40.7 (36.0-46.0) % MCV 82.4 (80.0-98.0) fL MCH 25.3 L (27.0-32.0) pg MCHC 30.7 L (31.0-37.0) g/dL RDW Std Deviation 46.4 (28.0-62.0) fl RDW Coeff of Rajeev 15 (11.0-15.0) % Plt Count 202 (150-400) K/uL MPV 10.10 (7.40-12.00) fL Neut % (Auto) 59.4 (48.0-80.0) % Lymph % (Auto) 28.3 (16.0-40.0) % Reagan % (Auto) 9.6 (0.0-15.0) % Eos % (Auto) 2.5 (0.0-7.0) % Baso % (Auto) 0.2 (0.0-1.5) % Neut # (Auto) 4.8 (1.4-5.7) K/uL Lymph # (Auto) 2.3 (0.6-2.4) K/uL Reagan # (Auto) 0.8 (0.0-0.8) K/uL Eos # (Auto) 0.2 (0.0-0.7) K/uL Baso # (Auto) 0.0 (0.0-0.1) K/uL Nucleated RBC % 0.0 /100WBC Nucleated RBCs # 0 K/uL Sodium 142 (136-145) mmol/L Potassium 4.0 (3.5-5.1) mmol/L Chloride 105 (98-107) mmol/L Carbon Dioxide 30.3 (21.0-32.0) mmol/L BUN 22 H (7.0-18.0) mg/dL Creatinine 1.7 H (0.6-1.0) mg/dL Est Cr Clr Drug Dosing 21.49 mL/min Estimated GFR (MDRD) 29.5 ml/min Glucose 74 (74-106) mg/dL POC Glucose 74 (60-110) mg/dL Calcium 8.2 L (8.5-10.1) mg/dL Total Bilirubin (0.2-1.0) mg/dL AST (15-37) IU/L ALT (14-63) IU/L Alkaline Phosphatase (46-116) U/L Total Protein (6.4-8.2) g/dL Albumin (3.4-5.0) g/dL Globulin (2.6-4.0) g/dL Albumin/Globulin Ratio (0.9-1.6) COVID-19 (DANIELA) (NEGATIVE) 06/16/20 06/16/20 06/16/20 Range/Units 06:23 07:06 08:02 WBC (4.0-11.0) K/uL RBC (4.30-5.90) M/uL Hgb (12.0-16.0) g/dL Hct (36.0-46.0) % MCV (80.0-98.0) fL MCH (27.0-32.0) pg MCHC (31.0-37.0) g/dL RDW Std Deviation (28.0-62.0) fl RDW Coeff of Rajeev (11.0-15.0) % Plt Count (150-400) K/uL MPV (7.40-12.00) fL Neut % (Auto) (48.0-80.0) % Lymph % (Auto) (16.0-40.0) % Reagan % (Auto) (0.0-15.0) % Eos % (Auto) (0.0-7.0) % Baso % (Auto) (0.0-1.5) % Neut # (Auto) (1.4-5.7) K/uL Lymph # (Auto) (0.6-2.4) K/uL Reagan # (Auto) (0.0-0.8) K/uL Eos # (Auto) (0.0-0.7) K/uL Baso # (Auto) (0.0-0.1) K/uL Nucleated RBC % /100WBC Nucleated RBCs # K/uL Sodium (136-145) mmol/L Potassium (3.5-5.1) mmol/L Chloride (98-107) mmol/L Carbon Dioxide (21.0-32.0) mmol/L BUN (7.0-18.0) mg/dL Creatinine (0.6-1.0) mg/dL Est Cr Clr Drug Dosing mL/min Estimated GFR (MDRD) ml/min Glucose (74-106) mg/dL POC Glucose 77 79 82 (60-110) mg/dL Calcium (8.5-10.1) mg/dL Total Bilirubin (0.2-1.0) mg/dL AST (15-37) IU/L ALT (14-63) IU/L Alkaline Phosphatase (46-116) U/L Total Protein (6.4-8.2) g/dL Albumin (3.4-5.0) g/dL Globulin (2.6-4.0) g/dL Albumin/Globulin Ratio (0.9-1.6) COVID-19 (DANIELA) (NEGATIVE) 06/16/20 06/16/20 Range/Units 09:00 10:02 WBC (4.0-11.0) K/uL RBC (4.30-5.90) M/uL Hgb (12.0-16.0) g/dL Hct (36.0-46.0) % MCV (80.0-98.0) fL MCH (27.0-32.0) pg MCHC (31.0-37.0) g/dL RDW Std Deviation (28.0-62.0) fl RDW Coeff of Rajeev (11.0-15.0) % Plt Count (150-400) K/uL MPV (7.40-12.00) fL Neut % (Auto) (48.0-80.0) % Lymph % (Auto) (16.0-40.0) % Reagan % (Auto) (0.0-15.0) % Eos % (Auto) (0.0-7.0) % Baso % (Auto) (0.0-1.5) % Neut # (Auto) (1.4-5.7) K/uL Lymph # (Auto) (0.6-2.4) K/uL Reagan # (Auto) (0.0-0.8) K/uL Eos # (Auto) (0.0-0.7) K/uL Baso # (Auto) (0.0-0.1) K/uL Nucleated RBC % /100WBC Nucleated RBCs # K/uL Sodium (136-145) mmol/L Potassium (3.5-5.1) mmol/L Chloride (98-107) mmol/L Carbon Dioxide (21.0-32.0) mmol/L BUN (7.0-18.0) mg/dL Creatinine (0.6-1.0) mg/dL Est Cr Clr Drug Dosing mL/min Estimated GFR (MDRD) ml/min Glucose (74-106) mg/dL POC Glucose 74 87 (60-110) mg/dL Calcium (8.5-10.1) mg/dL Total Bilirubin (0.2-1.0) mg/dL AST (15-37) IU/L ALT (14-63) IU/L Alkaline Phosphatase (46-116) U/L Total Protein (6.4-8.2) g/dL Albumin (3.4-5.0) g/dL Globulin (2.6-4.0) g/dL Albumin/Globulin Ratio (0.9-1.6) COVID-19 (DANIELA) (NEGATIVE) Result Diagrams: 06/16/20 05:09 06/16/20 05:09 Sepsis Event Note - Evaluation Sepsis Screening Result: No Definite Risk - Focused Exam Vital Signs: Vital Signs Temp Pulse Resp BP Pulse Ox 06/16/20 08:00 36.4 C 71 16 122/64 92 L 06/16/20 03:40 37.0 C 72 20 119/61 90 L 06/16/20 02:30 36.0 C L 75 18 112/60 96 06/15/20 23:38 87 18 142/70 H 99 Date Exam was Performed: 06/16/20 Time Exam was Performed: 11:58 Problem List Initiated/Reviewed/Updated: Yes Orders Last 24hrs: Active Orders 24 hr Category Date Time Status Admission Status [Patient Status] [ADT] Stat ADT 06/16/20 01:40 Active Blood Glucose Check, Bedside [RC] Q1H Care 06/16/20 04:03 Active Telemetry Monitoring [Cardiac Monitoring] [RC] . Care 06/16/20 02:42 Active DIRECTED [employer] Diet [DIET] Diet 06/16/20 Breakfast Active Dextrose 5%-0.45% NaCl [Dextrose 5%-1/2 NS] 1,000 ml Med 06/16/20 01:15 Active IV ASDIRECTED Medication Orders Dextrose/Sodium Chloride (Dextrose 5%-1/2 Ns) 1,000 mls @ 125 mls/hr IV ASDIRECTED VI Last Admin: 06/16/20 01:26 Dose: 125 mls/hr Documented by: NASREEN Assessment/Plan Comment:: Assessment and Plan: 1. Hypoglycemia: - Patient was on D5 1/2 NS @ 125 cc/hr overnight. Blood glucose has been in 70- 80's. Continue ADA diet. Blood glucose was 97 after breakfast this morning. Will discontinue D5 1/2 NS fluid and continue Accucheks q1h. 2. 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 3. DVT prophylaxis: SCD's. <Teddy Cornell - Last Filed: 06/17/20 23:18> H&P History of Present Illness - General Admit Problem/Dx: Admission Diagnosis/Problem Admission Diagnosis/Problem Hypoglycemia Exam - Vital Signs Vital Signs: Last Vital Signs Temp 36.9 C 06/16/20 12:00 Pulse 68 06/16/20 12:00 Resp 18 06/16/20 12:00 BP 109/55 L 06/16/20 12:00 Pulse Ox 92 L 06/16/20 12:00 - Patient Data Result Diagrams: 06/16/20 05:09 06/16/20 05:09 Sepsis Event Note - Focused Exam Date Exam was Performed: 06/17/20 Time Exam was Performed: 23:17 - Free Text/Narrative Note: I have seen and evaluated the patient with the resident. I have discussed findings and treatment plan with the resident. I agree with the assessment and plan outlined in the following note.
[2020-06-16] MEDS ORDERED: LEVOTHYROXINE 175 MCG PO SCH (12:15)
[2020-06-16 14:23] VITALS: BP 109/55; PULSE 68
[2020-06-16] MEDS ORDERED: Nortriptyline 10 MG Cap PO SCH (21:00)
[2020-06-17] MEDS ORDERED: Omeprazole 20 MG Cap.CR PO SCH (09:00)
== END 2020-06-16 15:10 | disposition home or self-care (01) ==
LOC: MW.ED 22:23 → MW.ICU 06-16 01:40
PROVIDERS: ADMIT Internal Medicine; ATTEND Internal Medicine
DX: T38.3X1A Poisoning by insulin and oral hypoglycemic [antidiabetic] drugs, accidental (unintentional), initial encounter (principal); E11.649 Type 2 diabetes mellitus with hypoglycemia without coma; E78.00 Pure hypercholesterolemia, unspecified; I10 Essential (primary) hypertension; G47.30 Sleep apnea, unspecified; K21.9 Gastro-esophageal reflux disease without esophagitis; E03.9 Hypothyroidism, unspecified; E66.9 Obesity, unspecified; Z20.828 Contact with and (suspected) exposure to other viral communicable diseases; Z88.6 Allergy status to analgesic agent; Z88.5 Allergy status to narcotic agent; Z88.8 Allergy status to other drugs, medicaments and biological substances; Z79.4 Long term (current) use of insulin; Z79.890 Hormone replacement therapy; Z79.899 Other long term (current) drug therapy; Z87.891 Personal history of nicotine dependence; Z99.81 Dependence on supplemental oxygen; Z68.36 Body mass index [BMI] 36.0-36.9, adult
CPT/HCPCS: 36415; 80048; 80053; 82962; 85025; 96361; 96374; 99285; G0378; J7042; U0002; 99291

== ENCOUNTER 2021-10-26 08:15 | Emergency (ER) | payer MEDICAID, MEDICARE ==
--- NOTE | 2021-10-26 08:45 | EDM.PDOC ---
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 Patient states that she has had a productive cough for the past week and last night she noticed she had some blood in her sputum which made her concerned. Patient is not had any blood in her sputum this morning she is not profusely coughing up blood or vomiting. She states that her breathing feels at her baseline she is on home O2 and her oxygen level is around 92 to 93%. She denies any chest pain any abdominal pain but reports some decreased p.o. intake states she does not feel well. - Related Data Allergies Allergy/AdvReac Type Severity Reaction Status Date / Time adhesive tape Allergy Rash Verified 10/26/21 08:24 prochlorperazine AdvReac Severe Vomiting Verified 10/26/21 08:24 hydrocodone AdvReac Vomiting Verified 10/26/21 08:24 oxycodone [Oxycodone] AdvReac Vomiting Verified 10/26/21 08:24 Tape Allergy Mild Itching Uncoded 10/26/21 08:24 Home Meds: Home Meds Levothyroxine [Levothroid] 175 mcg PO DAILY 06/09/14 [History] Omeprazole 40 mg PO DAILY 06/09/14 [History] Insulin Aspart [NovoLOG] 10 - 20 units SUBCUT TIDMEALS 03/09/16 [History] Nortriptyline HCl [Pamelor] 10 mg PO BEDTIME 03/09/16 [History] Calcium Carb, Citrate/Vit D3 [Calcium + D3 ER Tablet] 2 tab PO DAILY 05/29/19 [History] amLODIPine Besylate [Amlodipine Besylate] 10 mg PO BEDTIME 05/29/19 [History] Insulin Degludec [Tresiba] 80 unit SQ BEDTIME 09/03/19 [History] Meloxicam 15 mg PO DAILY 09/03/19 [History] Metoprolol Succinate 25 mg PO BEDTIME 09/03/19 [History] atorvaSTATin [Lipitor] 20 mg PO BEDTIME 09/03/19 [History] Cholecalciferol (Vitamin D3) [Vitamin D3] 25 mcg PO BEDTIME 02/04/20 [History] Docusate Sodium 200 mg PO BEDTIME 02/04/20 [History] Furosemide [Lasix] 40 mg PO DAILY PRN 02/04/20 [History] Magnesium 500 mg PO BEDTIME 02/04/20 [History] bisacodyL [Dulcolax] 5 mg PO DAILY PRN 02/04/20 [History] Losartan [Cozaar] 50 mg PO DAILY #1 02/11/20 [Rx] Past Medical History HEENT History: Reports: Allergic Rhinitis, Impaired Vision, Other (See Below) Other HEENT History: wears glasses, has upper and lower dentures Cardiovascular History: Reports: High Cholesterol, Hypertension Respiratory History: Reports: Sleep Apnea, Other (See Below) Other Respiratory History: PT reports only having use of half of her diaphragm due to a viral infection. 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 Hematologic History: Reports: Blood Transfusion(s) Immunologic History: Reports: None Oncologic (Cancer) History: Reports: None Dermatologic History: Reports: Other (See Below) Other Dermatologic History: has patches of dry skin - Infectious Disease History Infectious Disease History: Reports: None - Past Surgical History Head Surgeries/Procedures: Reports: None HEENT Surgical History: Reports: Naso-Sinus Surgery, Tonsillectomy Female Surgical History: Reports: Hysterectomy Musculoskeletal Surgical History: Reports: Arthroscopic Knee, Carpal Tunnel, Other (See Below) Social & Family History - Family History Family Medical History: No Pertinent Family History - Caffeine Use Caffeine Use: Reports: None ED ROS GENERAL - Review of Systems Review Of Systems: See Below Constitutional: Reports: Fever, Chills, Malaise, Fatigue HEENT: Reports: No Symptoms Respiratory: Reports: Cough, Hemoptysis Cardiovascular: Reports: No Symptoms Endocrine: Reports: No Symptoms GI/Abdominal: Reports: No Symptoms : Reports: No Symptoms Musculoskeletal: Reports: No Symptoms Skin: Reports: No Symptoms Neurological: Reports: No Symptoms Psychiatric: Reports: No Symptoms Hematologic/Lymphatic: Reports: No Symptoms Immunologic: Reports: No Symptoms ED EXAM, GENERAL - Physical Exam Exam: See Below Exam Limited By: No Limitations General Appearance: Alert, WD/WN, No Apparent Distress Eye Exam: Bilateral Eye: EOMI Nose: Normal Inspection Head: Atraumatic Respiratory/Chest: No Respiratory Distress, Lungs Clear, Normal Breath Sounds Cardiovascular: Normal Peripheral Pulses, Regular Rate, Rhythm, No Edema GI/Abdominal: Normal Bowel Sounds, Soft, Non-Tender Extremities: Normal Inspection, Normal Range of Motion Neurological: Alert, Oriented, Normal Cognition, Normal Gait Psychiatric: Normal Affect Course - Vital Signs Last Recorded V/S: Last Vital Signs Temp 96.6 F L 10/26/21 08:30 Pulse 82 10/26/21 08:30 Resp 20 10/26/21 08:30 BP 137/62 10/26/21 08:30 Pulse Ox 92 L 10/26/21 08:30 - Orders/Labs/Meds Labs: Laboratory Tests 10/26/21 10/26/21 10/26/21 Range/Units 08:47 08:47 08:47 WBC 4.33 (4.0-11.0) K/uL RBC 5.67 (4.30-5.90) M/uL Hgb 17.3 H (12.0-16.0) g/dL Hct 51.5 H (36.0-46.0) % MCV 90.8 (80.0-98.0) fL MCH 30.5 (27.0-32.0) pg MCHC 33.6 (31.0-37.0) g/dL RDW Std Deviation 42.7 (28.0-62.0) fl RDW Coeff of Rajeev 13 (11.0-15.0) % Plt Count 139 L (150-400) K/uL MPV 10.20 (7.40-12.00) fL Neut % (Auto) 71.4 (48.0-80.0) % Lymph % (Auto) 20.3 (16.0-40.0) % [place] % (Auto) 7.6 (0.0-15.0) % Eos % (Auto) 0.7 (0.0-7.0) % Baso % (Auto) 0.0 (0.0-1.5) % Neut # (Auto) 3.1 (1.4-5.7) K/uL Lymph # (Auto) 0.9 (0.6-2.4) K/uL [place] # (Auto) 0.3 (0.0-0.8) K/uL Eos # (Auto) 0.0 (0.0-0.7) K/uL Baso # (Auto) 0.0 (0.0-0.1) K/uL Nucleated RBC % 0.0 /100WBC Nucleated RBCs # 0 K/uL Sodium 140 (136-145) mmol/L Potassium 4.1 (3.5-5.1) mmol/L Chloride 104 (98-107) mmol/L Carbon Dioxide 25.1 (21.0-32.0) mmol/L BUN 15 (7.0-18.0) mg/dL Creatinine 1.1 H (0.6-1.0) mg/dL Est Cr Clr Drug Dosing 34.37 mL/min Estimated GFR (MDRD) 48.7 ml/min Glucose 154 H (74-106) mg/dL Calcium 8.6 (8.5-10.1) mg/dL Total Bilirubin 0.8 (0.2-1.0) mg/dL AST 31 (15-37) IU/L ALT 25 (14-63) IU/L Alkaline Phosphatase 98 (46-116) U/L Total Protein 7.4 (6.4-8.2) g/dL Albumin 3.1 L (3.4-5.0) g/dL Globulin 4.3 H (2.6-4.0) g/dL Albumin/Globulin Ratio 0.7 L (0.9-1.6) Influenza Type A RNA NEGATIVE (NEGATIVE) Influenza Type B RNA NEGATIVE (NEGATIVE) SARS-CoV-2 RNA (DANIELA) POSITIVE H (NEGATIVE) - Re-Assessments/Exams Free Text/Narrative Re-Assessment/Exam: 10/26/21 09:57 Patient was found to be Covid positive. Patient oxygen level seems better baseline per patient she is in the low 90s on her home O2. Patient did have episodes when she got up with her oxygen and walked to the bathroom and desatted slightly there is normal for the patient. Patient not cough of any blood her hemoglobin stable here. After having a lengthy discussion with the patient about admission versus discharge patient with to be discharged she does not feel that she has no shortness of breath just has some fatigue. Patient states she has been feeling sick for 7 days. Due to patient being on home oxygen not sure she qualifies for the antibiotics but we still consultancy. Departure - Departure Time of Disposition: 09:58 Disposition: Home, Self-Care 01 Condition: Good Clinical Impression: COVID - Discharge Information *PRESCRIPTION DRUG MONITORING PROGRAM REVIEWED*: Not Applicable *COPY OF PRESCRIPTION DRUG MONITORING REPORT IN PATIENT DANIEL: Not Applicable Instructions: 10 Things You Can Do to Manage Your COVID-19 Symptoms at Home - [facility] (06/04/2021) Forms: ED Department Discharge Additional Instructions: The following information is given to patients seen in the emergency department who are being discharged to home. This information is to outline your options for follow-up care. We provide all patients seen in our emergency department with a follow-up referral. You were seen today for not feeling well. You are found to have Covid was is likely contributing to your symptoms. You wear home oxygen and your oxygen saturation is at its baseline. After having discussion with you you would prefer to be discharged home we will discharge you home however if you have any increased shortness of breath your oxygen level is lower than normal please immediately return to the ER otherwise follow-up with your primary care physician. We will also try to refer you to the antibiotic clinic. I am not sure if you qualify for due to you being on home oxygen they will contact you if you do. The need for follow-up, as well as the timing and circumstances, are variable depending upon the specifics of your emergency department visit. If you don't have a primary care physician on staff, we will provide you with a referral. We always advise you to contact your personal physician following an emergency department visit to inform them of the circumstance of the visit and for follow-up with them and/or the need for any referrals to a consulting specialist. The emergency department will also refer you to a specialist when appropriate. This referral assures that you have the opportunity for follow-up care with a specialist. All of these measure are taken in an effort to provide you with optimal care, which includes your follow-up. Under all circumstances we always encourage you to contact your private physician who remains a resource for coordinating your care. When calling for follow-up care, please make the office aware that this follow-up is from your recent emergency room visit. If for any reason you are refused follow-up, please contact the [facility] Emergency Department at and asked to speak to the emergency department charge nurse. Please follow up with your primary care physician. If you do not have a primary care physician, see below: [facility] [address] [place] [id number] [facility] [address] [place] [id number] Sepsis Event Note (ED) - Evaluation Sepsis Screening Result: No Definite Risk - Focused Exam Vital Signs: Vital Signs Temp Pulse Resp BP Pulse Ox 10/26/21 08:30 96.6 F L 82 20 137/62 92 L - Assessment/Plan Plan: Patient is a 75-year-old female who presents today for cough fatigue and blood in sputum. Patient does not have any hemoptysis here and is maintaining her airway and satting at her baseline. We will obtain CBC Chem x-ray and reassess
[2021-10-26 09:17] LABS: CARBON DIOXIDE,CO2 25.1 mmol/L (21.0-32.0); POTASSIUM,K 4.1 mmol/L (3.5-5.1)
[2021-10-26 09:39] LABS: CORONAVIRUS COVID-19 NAA POSITIVE (NEGATIVE); INFLUENZA A NAA NEGATIVE (NEGATIVE); INFLUENZA B NAA NEGATIVE (NEGATIVE)
--- NOTE | 2021-10-26 09:40 | CR ---
INDICATION: Cough. Hypoxia. Hemoptysis. TECHNIQUE: Portable upright AP view of the chest. COMPARISON: 03/04/2021. FINDINGS: Limited by body habitus. Stable cardiomegaly. There is mild pulmonary vascular congestion with diffuse interstitial prominence, suggestive of low-grade interstitial edema. No airspace consolidation seen. Elevated right hemidiaphragm is a terese compressive right basilar atelectasis. No appreciable pleural fluid on this single view study. No pneumothorax. IMPRESSION: Findings most suggestive of mild CHF. Dictated by Frederick Rangel MD @ 10/26/2021 9:38:17 AM Dictated by: Frederick Rangel MD @ 10/26/2021 09:38:28 (Electronically Signed)
[2021-10-26 10:31] VITALS: BP 148/62; PULSE 84
== END 2021-10-26 10:53 | disposition home or self-care (01) ==
LOC: MW.ED 08:15
DX: U07.1 COVID-19 (principal); E78.00 Pure hypercholesterolemia, unspecified; I10 Essential (primary) hypertension; K21.9 Gastro-esophageal reflux disease without esophagitis; M19.90 Unspecified osteoarthritis, unspecified site; E11.9 Type 2 diabetes mellitus without complications; E03.9 Hypothyroidism, unspecified; E66.9 Obesity, unspecified; Z68.36 Body mass index [BMI] 36.0-36.9, adult; Z91.048 Other nonmedicinal substance allergy status; Z88.8 Allergy status to other drugs, medicaments and biological substances; Z88.5 Allergy status to narcotic agent; Z79.4 Long term (current) use of insulin; Z79.899 Other long term (current) drug therapy
CPT/HCPCS: 0240U; 71045; 80053; 85025; 99283

== ENCOUNTER 2022-09-12 09:08 | Inpatient (IN) | payer MEDICARE ==
[2022-09-12] MEDS ORDERED: cefTRIAXone 1 GM in Sodium Chloride 0.9% 50 ML IV ONE (09:41)
[2022-09-12] MEDS ORDERED: methylPREDNISolone Sodium Succinate 125 MG/2 ML SDV IVPUSH ONE (09:41)
[2022-09-12] MEDS ORDERED: Nitroglycerin 0.4 MG Tab.SL SL ONE (09:41)
[2022-09-12] MEDS ORDERED: Furosemide 40 MG/4 ML VIAL IVPUSH ONE ×2 (09:44→18:10)
[2022-09-12] MEDS: Sodium Chloride 0.9% 10 ML Syringe FLUSH PRN (09:53)
[2022-09-12] MEDS: Sodium Chloride 0.9% 2.5 ML Syringe FLUSH PRN (09:53)
[2022-09-12 10:36] LABS: CORONAVIRUS COVID-19 NAA NEGATIVE (NEGATIVE); INFLUENZA A NAA NEGATIVE (NEGATIVE); INFLUENZA B NAA NEGATIVE (NEGATIVE)
[2022-09-12 10:52] LABS: CARBON DIOXIDE,CO2 26.5 mmol/L (21.0-32.0); POTASSIUM,K 4.2 mmol/L (3.5-5.1)
[2022-09-12] MEDS ORDERED: Albuterol/Ipratropium 3.0-0.5 MG/3 ML Neb Soln NEB ONE (11:16)
[2022-09-12] MEDS ORDERED: Albuterol/Ipratropium 3.0-0.5 MG/3 ML Neb Soln NEB PRN ×2 (13:53→18:00)
[2022-09-12] MEDS ORDERED: Azithromycin 500 MG in Sodium Chloride 0.9% 250 ML IV SCH (14:00)
[2022-09-12] MEDS ORDERED: Insulin Regular, Human 100 Units/ML 10 ML Vial SUBCUT SCH (14:20)
[2022-09-12] MEDS ORDERED: Enoxaparin 40 MG/0.4 ML Syringe SUBCUT SCH (14:30)
[2022-09-12] MEDS: Famotidine 20 MG Tab PO SCH ×2 (14:53→20:41)
[2022-09-12] MEDS: Insulin Aspart 100 Units/ML 3 ML Pen SUBCUT SCH (17:24)
[2022-09-12] MEDS: methylPREDNISolone Sodium Succinate 40 MG/1 ML SDV IVPUSH SCH (18:46)
[2022-09-12] MEDS: atorvaSTATin 40 MG Tab PO SCH (20:40)
[2022-09-12] MEDS: amLODIPine 5 MG Tab PO SCH (20:40)
[2022-09-12] MEDS ORDERED: methylPREDNISolone Sodium Succinate 40 MG/1 ML SDV IVPUSH SCH (21:00)
[2022-09-12] MEDS: Latanoprost 0.005% Ophth Soln 2.5 ML Bottle EYEBOTH SCH (21:26)
[2022-09-13] MEDS ORDERED: Insulin Aspart 100 Units/ML 3 ML Pen SUBCUT ONE (00:08)
[2022-09-13] MEDS ORDERED: Insulin Glargine,Hum.Rec.Anlog 100 UNIT/ML 3 ML Pen SUBCUT ONE (00:30)
[2022-09-13] MEDS: methylPREDNISolone Sodium Succinate 40 MG/1 ML SDV IVPUSH SCH ×2 (02:04→13:58)
[2022-09-13] MEDS: Levothyroxine 125 MCG Tab PO SCH (06:52)
[2022-09-13 06:57] LABS: POTASSIUM,K 4.2 mmol/L (3.5-5.1)
[2022-09-13] MEDS: Insulin Aspart 100 Units/ML 3 ML Pen SUBCUT SCH ×3 (08:20→16:46)
[2022-09-13] MEDS: Bumetanide 1 MG Tab PO SCH (08:22)
[2022-09-13] MEDS: Famotidine 20 MG Tab PO SCH ×2 (08:28→20:38)
[2022-09-13] MEDS: Metoprolol Succinate 25 MG Tab.ER PO SCH (08:29)
[2022-09-13] MEDS: Sodium Chloride 0.9% 10 ML Syringe FLUSH PRN (08:58)
[2022-09-13] MEDS ORDERED: Azithromycin 500 MG in Sodium Chloride 0.9% 250 ML IV SCH (09:00)
[2022-09-13] MEDS ORDERED: Meloxicam 7.5 MG Tab PO SCH (09:00)
[2022-09-13] MEDS: Losartan 50 MG Tab PO SCH (09:22)
[2022-09-13] MEDS: Sodium Chloride 0.9% 2.5 ML Syringe FLUSH PRN (10:19)
[2022-09-13] MEDS ORDERED: Furosemide 40 MG/4 ML VIAL IVPUSH ONE ×2 (10:23→17:00)
[2022-09-13] MEDS ORDERED: Enoxaparin 40 MG/0.4 ML Syringe SUBCUT SCH ×2 (15:00)
[2022-09-13] MEDS: atorvaSTATin 40 MG Tab PO SCH (20:37)
[2022-09-13] MEDS: amLODIPine 5 MG Tab PO SCH (20:38)
[2022-09-13] MEDS: Latanoprost 0.005% Ophth Soln 2.5 ML Bottle EYEBOTH SCH (20:53)
[2022-09-14] MEDS: Levothyroxine 125 MCG Tab PO SCH (06:51)
[2022-09-14] MEDS: Insulin Aspart 100 Units/ML 3 ML Pen SUBCUT SCH ×2 (07:32→11:53)
[2022-09-14 08:15] LABS: CARBON DIOXIDE,CO2 30.6 mmol/L (21.0-32.0); POTASSIUM,K 4.1 mmol/L (3.5-5.1)
[2022-09-14] MEDS: Famotidine 20 MG Tab PO SCH (09:47)
[2022-09-14] MEDS: Losartan 50 MG Tab PO SCH (09:47)
[2022-09-14] MEDS: Metoprolol Succinate 25 MG Tab.ER PO SCH (09:48)
[2022-09-14] MEDS: Bumetanide 1 MG Tab PO SCH (09:48)
[2022-09-14 11:23] VITALS: BP 128/54; PULSE 55
== END 2022-09-14 16:00 | disposition home or self-care (01) | DRG 291 ==
LOC: MW.ED 09:08 → MW.MS 11:31
PROVIDERS: ADMIT Student in an Organized Health Care Education/Training Program; ATTEND Student in an Organized Health Care Education/Training Program
DX: I11.0 Hypertensive heart disease with heart failure (principal); I50.33 Acute on chronic diastolic (congestive) heart failure; J44.9 Chronic obstructive pulmonary disease, unspecified; R09.02 Hypoxemia; E78.00 Pure hypercholesterolemia, unspecified; G47.30 Sleep apnea, unspecified; J96.21 Acute and chronic respiratory failure with hypoxia; K44.9 Diaphragmatic hernia without obstruction or gangrene; K58.9 Irritable bowel syndrome, unspecified; M19.90 Unspecified osteoarthritis, unspecified site; J44.1 Chronic obstructive pulmonary disease with (acute) exacerbation; E03.9 Hypothyroidism, unspecified; G47.33 Obstructive sleep apnea (adult) (pediatric); E66.9 Obesity, unspecified; Z20.822 Contact with and (suspected) exposure to COVID-19; E78.5 Hyperlipidemia, unspecified; K21.9 Gastro-esophageal reflux disease without esophagitis; E11.9 Type 2 diabetes mellitus without complications; Z68.37 Body mass index [BMI] 37.0-37.9, adult; Z79.4 Long term (current) use of insulin; Z79.899 Other long term (current) drug therapy; Z88.8 Allergy status to other drugs, medicaments and biological substances; Z97.3 Presence of spectacles and contact lenses; Z87.19 Personal history of other diseases of the digestive system; Z79.890 Hormone replacement therapy; Z87.81 Personal history of (healed) traumatic fracture; Z86.16 Personal history of COVID-19; Z98.42 Cataract extraction status, left eye; Z98.41 Cataract extraction status, right eye; Z90.89 Acquired absence of other organs; Z90.710 Acquired absence of both cervix and uterus; Z88.5 Allergy status to narcotic agent
CPT/HCPCS: 0240U; 36415; 71045; 80053; 81001; 82947; 83735; 83880; 84484; 85025; 85610; 93005; 93306; 97161; 93010; 99284; A9270-GY; J0456; J0696; J1650; J1815-GY; J1940; J2920; J2930; J3490; J7050; J7620-GY

== ENCOUNTER 2024-02-22 04:20 | Inpatient (IN) | payer MEDICARE ==
[2024-02-22] MEDS: Furosemide 40 MG/4 ML VIAL IVPUSH ONE (04:42)
[2024-02-22 04:43] LABS: BASE EXCESS VENOUS 3.7 (-2.0-3.0); BASOPHILS ABSOLUTE AUTO 0.04 K/uL (0.00-0.20); BASOPHILS PERCENT AUTO 0.7 % (0.0-1.0); EOSINOPHILS ABSOLUTE AUTO 0.17 K/uL (0.00-0.45); EOSINOPHILS PERCENT AUTO 3.1 % (0.0-6.0); HEMATOCRIT 45.7 % (37.0-47.0); HEMOGLOBIN 15.7 g/dL (12.0-16.0); IMMATURE GRAN ABSOLUTE AUTO 0.02 K/uL (0.00-0.05); IMMATURE GRAN PERCENT AUTO 0.4 % (0.0-0.4); LYMPHOCYTES ABSOLUTE AUTO 1.85 K/uL (1.00-4.80); LYMPHOCYTES PERCENT AUTO 33.7 % (24.0-44.0); MEAN CORPUSCULAR HEMOGLOBIN 30.3 pg (28.0-32.0); MEAN CORPUSCULAR HGB CONC 34.4 g/dL (32.0-36.0); MEAN CORPUSCULAR VOLUME 88.2 fL (83.0-99.0); MEAN PLATELET VOLUME 10.2 fL (9.4-12.3); MONOCYTES ABSOLUTE AUTO 0.47 K/uL (0.00-0.80); MONOCYTES PERCENT AUTO 8.6 % (0.0-8.0); NEUTROPHILS ABSOLUTE AUTO 2.94 K/uL (1.80-7.70); NEUTROPHILS PERCENT AUTO 53.5 % (41.0-71.0); PH,VENOUS 7.38 (7.31-7.41); PLATELET COUNT,PLT 151 K/uL (150-400); RED BLOOD CELL COUNT 5.18 M/uL (4.10-5.30); WHITE BLOOD CELL COUNT,WBC 5.49 K/uL (3.9-11.3)
[2024-02-22 05:13] LABS: A/G RATIO 1.1 (0.9-1.6); ALBUMIN 3.8 g/dL (3.4-5.0); BILIRUBIN TOTAL 1.4 mg/dL (0.2-1.0); C-REACTIVE PROTEIN 0.19 mg/dL (<0.3); CALCIUM 9.5 mg/dL (8.5-10.1); CARBON DIOXIDE,CO2 30.1 mmol/L (21.0-32.0); CREATININE 1.4 mg/dL (0.6-1.0); EST CRCL DRUG DOSING (CG) 27.04 mL/min; MAGNESIUM 1.7 mg/dL (1.8-2.4); POTASSIUM,K 3.6 mmol/L (3.5-5.1); PROTEIN TOTAL,TP 7.4 g/dL (6.4-8.2)
[2024-02-22 05:22] LABS: CORONAVIRUS COVID-19 NAA NEGATIVE (NEGATIVE); INFLUENZA A NAA NEGATIVE (NEGATIVE); INFLUENZA B NAA NEGATIVE (NEGATIVE); RESPIRATORY SYNCYTIAL VIR NAA NEGATIVE (NEGATIVE)
[2024-02-22] MEDS: Insulin Regular, Human 100 Units/ML 10 ML Vial IVPUSH ONE (05:25)
[2024-02-22] MEDS ORDERED: Ondansetron 4 MG Tab.DIS PO PRN (07:58)
[2024-02-22] MEDS ORDERED: 50% Dextrose in Water 50 ML Syringe IVPUSH PRN (08:02)
[2024-02-22] MEDS ORDERED: Glucagon,Human Recombinant 1 MG Vial IM PRN (08:02)
[2024-02-22] MEDS: Pantoprazole 40 MG in Sodium Chloride 0.9% 10 ML IVPUSH SCH (08:34)
[2024-02-22] MEDS: Enoxaparin 40 MG/0.4 ML Syringe SUBCUT SCH (08:34)
[2024-02-22] MEDS: Magnesium Sulfate/Water 2 GM in Premix Bag 1 BAG IV ONE (08:35)
[2024-02-22] MEDS ORDERED: FLU (Fluad Quad) 2023-24(65UP)/MF59C/PF 60 MCG/0.5 ML Syringe IM ONE (09:00)
[2024-02-22] MEDS: Magnesium Oxide 400 MG Tab PO SCH (10:54)
[2024-02-22] MEDS: Potassium Chloride 20 MEQ Tab.ER PO ONE (10:54)
[2024-02-22] MEDS: Losartan 50 MG Tab PO SCH (10:54)
[2024-02-22] MEDS: Levothyroxine 125 MCG Tab PO SCH (11:11)
[2024-02-22] MEDS: Insulin Aspart 100 Units/ML 3 ML Pen SUBCUT SCH (11:57)
[2024-02-22] MEDS: Furosemide 40 MG/4 ML VIAL IVPUSH SCH (13:02)
[2024-02-22] MEDS: atorvaSTATin 40 MG Tab PO SCH (20:05)
[2024-02-22] MEDS: amLODIPine 5 MG Tab PO SCH (20:05)
[2024-02-22] MEDS: INSULIN DEGLUDEC 100 UNIT/ML SQ SCH (20:07)
[2024-02-23 06:04] LABS: BASOPHILS ABSOLUTE AUTO 0.03 K/uL (0.00-0.20); BASOPHILS PERCENT AUTO 0.5 % (0.0-1.0); EOSINOPHILS ABSOLUTE AUTO 0.21 K/uL (0.00-0.45); EOSINOPHILS PERCENT AUTO 3.2 % (0.0-6.0); HEMATOCRIT 45.6 % (37.0-47.0); HEMOGLOBIN 15.4 g/dL (12.0-16.0); IMMATURE GRAN ABSOLUTE AUTO 0.01 K/uL (0.00-0.05); IMMATURE GRAN PERCENT AUTO 0.2 % (0.0-0.4); LYMPHOCYTES ABSOLUTE AUTO 1.89 K/uL (1.00-4.80); LYMPHOCYTES PERCENT AUTO 29.2 % (24.0-44.0); MEAN CORPUSCULAR HEMOGLOBIN 29.6 pg (28.0-32.0); MEAN CORPUSCULAR HGB CONC 33.8 g/dL (32.0-36.0); MEAN CORPUSCULAR VOLUME 87.7 fL (83.0-99.0); MEAN PLATELET VOLUME 10.5 fL (9.4-12.3); MONOCYTES ABSOLUTE AUTO 0.55 K/uL (0.00-0.80); MONOCYTES PERCENT AUTO 8.5 % (0.0-8.0); NEUTROPHILS ABSOLUTE AUTO 3.79 K/uL (1.80-7.70); NEUTROPHILS PERCENT AUTO 58.4 % (41.0-71.0); PLATELET COUNT,PLT 167 K/uL (150-400); WHITE BLOOD CELL COUNT,WBC 6.48 K/uL (3.9-11.3)
[2024-02-23 06:29] LABS: ALBUMIN 3.2 g/dL (3.4-5.0); BILIRUBIN TOTAL 1.8 mg/dL (0.2-1.0); CALCIUM 9.1 mg/dL (8.5-10.1); CARBON DIOXIDE,CO2 33.9 mmol/L (21.0-32.0); CREATININE 1.1 mg/dL (0.6-1.0); EST CRCL DRUG DOSING (CG) 31.25 mL/min; MAGNESIUM 1.8 mg/dL (1.8-2.4); POTASSIUM,K 3.7 mmol/L (3.5-5.1); PROTEIN TOTAL,TP 6.5 g/dL (6.4-8.2)
[2024-02-23] MEDS: Metoprolol Succinate 25 MG Tab.ER PO SCH (08:22)
[2024-02-23] MEDS: Acetaminophen 325 MG Tab PO PRN (08:25)
[2024-02-23] MEDS: FLU (Fluad Quad) 2023-24(65UP)/MF59C/PF 60 MCG/0.5 ML Syringe IM ONE (15:11)
[2024-02-23 15:49] VITALS: BP 132/64; PULSE 74
== END 2024-02-23 15:40 | disposition home or self-care (01) | DRG 291 ==
LOC: MW.ED 04:20 → MW.MS 05:38
PROVIDERS: ADMIT Internal Medicine; ATTEND Internal Medicine
DX: I11.0 Hypertensive heart disease with heart failure (principal); E87.70 Fluid overload, unspecified; I50.33 Acute on chronic diastolic (congestive) heart failure; I50.9 Heart failure, unspecified; E03.9 Hypothyroidism, unspecified; G47.33 Obstructive sleep apnea (adult) (pediatric); H54.7 Unspecified visual loss; E78.00 Pure hypercholesterolemia, unspecified; K21.9 Gastro-esophageal reflux disease without esophagitis; M17.0 Bilateral primary osteoarthritis of knee; E66.9 Obesity, unspecified; E11.65 Type 2 diabetes mellitus with hyperglycemia; Z88.5 Allergy status to narcotic agent; E87.8 Other disorders of electrolyte and fluid balance, not elsewhere classified; Z68.28 Body mass index [BMI] 28.0-28.9, adult; Z88.8 Allergy status to other drugs, medicaments and biological substances; Z91.048 Other nonmedicinal substance allergy status; Z79.82 Long term (current) use of aspirin; Z79.4 Long term (current) use of insulin; Z79.899 Other long term (current) drug therapy; Z87.19 Personal history of other diseases of the digestive system; Z87.81 Personal history of (healed) traumatic fracture; Z68.34 Body mass index [BMI] 34.0-34.9, adult; Z98.890 Other specified postprocedural states; Z90.89 Acquired absence of other organs; Z98.49 Cataract extraction status, unspecified eye; Z90.710 Acquired absence of both cervix and uterus; Z99.81 Dependence on supplemental oxygen
CPT/HCPCS: 0241U; 36415; 71045; 80053; 82803; 82947; 83735; 83880; 84484; 85025; 86140; 90694; 93005; 96374; 97162; 99285; 93010; A9270-GY; C9113; G0008; J1650; J1815-GY; J1940; J3475; J3490

== ENCOUNTER 2024-06-17 22:03 | Emergency (ER) | payer MEDICARE ==
[2024-06-17] MEDS: Lidocaine 5% Oint 35.44 GM Tube TOP ONE (23:36)
[2024-06-17] MEDS: Lidocaine 4% 1 each Patch TOP STA (23:41)
[2024-06-18] MEDS: Cyclobenzaprine 5 MG Tab PO STA (00:13)
[2024-06-18 00:19] VITALS: BP 160/72; PULSE 75
== END 2024-06-18 00:15 | disposition home or self-care (01) ==
LOC: MW.ED 22:03
DX: S39.012A Strain of muscle, fascia and tendon of lower back, initial encounter (principal); I10 Essential (primary) hypertension; E78.00 Pure hypercholesterolemia, unspecified; K21.9 Gastro-esophageal reflux disease without esophagitis; E11.9 Type 2 diabetes mellitus without complications; E03.9 Hypothyroidism, unspecified; E66.9 Obesity, unspecified; Z90.710 Acquired absence of both cervix and uterus; Z79.899 Other long term (current) drug therapy; Z79.82 Long term (current) use of aspirin; Z79.4 Long term (current) use of insulin; Z91.048 Other nonmedicinal substance allergy status; Z88.8 Allergy status to other drugs, medicaments and biological substances; Z88.5 Allergy status to narcotic agent; X58.XXXA Exposure to other specified factors, initial encounter
CPT/HCPCS: 99283; A9270

== ENCOUNTER 2024-09-05 22:35 | Emergency (ER) | payer MEDICARE ==
[2024-09-05 23:38] LABS: BASOPHILS ABSOLUTE AUTO 0.02 K/uL (0.00-0.20); BASOPHILS PERCENT AUTO 0.3 % (0.0-1.0); EOSINOPHILS ABSOLUTE AUTO 0.13 K/uL (0.00-0.45); EOSINOPHILS PERCENT AUTO 1.6 % (0.0-6.0); HEMATOCRIT 47.2 % (37.0-47.0); HEMOGLOBIN 15.9 g/dL (12.0-16.0); IMMATURE GRAN ABSOLUTE AUTO 0.01 K/uL (0.00-0.05); IMMATURE GRAN PERCENT AUTO 0.1 % (0.0-0.4); LYMPHOCYTES ABSOLUTE AUTO 1.66 K/uL (1.00-4.80); MEAN CORPUSCULAR HEMOGLOBIN 30.7 pg (28.0-32.0); MEAN CORPUSCULAR HGB CONC 33.7 g/dL (32.0-36.0); MEAN CORPUSCULAR VOLUME 91.1 fL (83.0-99.0); MONOCYTES ABSOLUTE AUTO 0.64 K/uL (0.00-0.80); MONOCYTES PERCENT AUTO 8.1 % (0.0-8.0); NEUTROPHILS ABSOLUTE AUTO 5.44 K/uL (1.80-7.70); NEUTROPHILS PERCENT AUTO 68.9 % (41.0-71.0); PLATELET COUNT,PLT 181 K/uL (150-400); RED BLOOD CELL COUNT 5.18 M/uL (4.10-5.30)
[2024-09-05 23:53] LABS: D-DIMER QUANTITATIVE 0.7 mg/L FEU (0.00-0.50); INR 1.05 (0.86-1.11)
[2024-09-05 23:56] LABS: CORONAVIRUS COVID-19 NAA NEGATIVE (NEGATIVE); INFLUENZA A NAA NEGATIVE (NEGATIVE); INFLUENZA B NAA NEGATIVE (NEGATIVE); RESPIRATORY SYNCYTIAL VIR NAA NEGATIVE (NEGATIVE)
[2024-09-06 00:11] LABS: A/G RATIO 0.9 (0.9-1.6); ALBUMIN 3.5 g/dL (3.4-5.0); BILIRUBIN TOTAL 1.3 mg/dL (0.2-1.0); CALCIUM 9.3 mg/dL (8.5-10.1); CARBON DIOXIDE,CO2 29.9 mmol/L (21.0-32.0); EST CRCL DRUG DOSING (CG) 34.38 mL/min; POTASSIUM,K 4.1 mmol/L (3.5-5.1); PROTEIN TOTAL,TP 7.2 g/dL (6.4-8.2); TSH ULTRASENSITIVE 0.19 uIU/mL (0.36-3.74)
[2024-09-06 00:27] LABS: APPEARANCE,URINE SLT CLOUDY; BILIRUBIN,URINE NEGATIVE (NEGATIVE); COLOR,URINE YELLOW; GLUCOSE,URINE NEGATIVE (NEGATIVE); KETONES,URINE NEGATIVE (NEGATIVE); LEUKOCYTE ESTERASE,URINE SMALL (NEGATIVE); NITRITE,URINE NEGATIVE (NEGATIVE); OCCULT BLOOD,URINE NEGATIVE (NEGATIVE); PROTEIN,URINE NEGATIVE (NEGATIVE); UROBILINOGEN,URINE 0.2 EU/dL (<2.0)
[2024-09-06 00:28] LABS: T4 FREE 1.28 ng/dL (0.76-1.46)
[2024-09-06 00:34] LABS: BACTERIA,URINE RARE (NEGATIVE); EPITHELIAL CELLS,URINE FEW (NONE-FEW); RBC,URINE 0-3 (0-2/HPF)
[2024-09-06] MEDS: Doxycycline 100 MG Cap PO ONE (00:44)
[2024-09-06] MEDS: Amoxicillin/Clavulanate K 875-125 MG Tab PO ONE (00:45)
[2024-09-06 00:57] VITALS: BP 154/76; PULSE 58
== END 2024-09-06 00:55 | disposition home or self-care (01) ==
LOC: MW.ED 22:35
DX: J18.9 Pneumonia, unspecified organism (principal); E11.65 Type 2 diabetes mellitus with hyperglycemia; I11.0 Hypertensive heart disease with heart failure; I50.9 Heart failure, unspecified; E78.00 Pure hypercholesterolemia, unspecified; K21.9 Gastro-esophageal reflux disease without esophagitis; M19.90 Unspecified osteoarthritis, unspecified site; E03.9 Hypothyroidism, unspecified; E66.9 Obesity, unspecified; Z68.34 Body mass index [BMI] 34.0-34.9, adult; Z90.49 Acquired absence of other specified parts of digestive tract; Z90.710 Acquired absence of both cervix and uterus; Z88.8 Allergy status to other drugs, medicaments and biological substances; Z88.5 Allergy status to narcotic agent; Z91.048 Other nonmedicinal substance allergy status; Z79.82 Long term (current) use of aspirin; Z79.4 Long term (current) use of insulin; Z79.890 Hormone replacement therapy; Z79.2 Long term (current) use of antibiotics; Z79.899 Other long term (current) drug therapy; Z75.8 Other problems related to medical facilities and other health care
CPT/HCPCS: 0241U; 36415; 71045; 80053; 81001; 83880; 84439; 84443; 84484; 85025; 85379; 85610; 85730; 87086; 93005; 99285; A9270